=== PATIENT | female | born 1945 | race Caucasian/White ===

== ENCOUNTER 2022-02-16 07:45 | Day surgery (SDC) | payer MEDICARE ==
--- NOTE | 2022-02-10 09:36 | HP ---
DATE OF SURGERY: 02/16/2022 HISTORY OF PRESENT ILLNESS: The patient is a 76-year-old female who presents with cholelithiasis. She had some band-like abdominal pain. She also had some nausea and vomiting with this. The pain radiates out to the lateral side. The patient had ultrasound demonstrating cholelithiasis. PAST MEDICAL HISTORY: Thyroid, hypertension, anxiety, depression, gastroesophageal reflux disease, chronic obstructive pulmonary disease. PAST SURGICAL HISTORY: None. ALLERGIES: NKDA. MEDICATIONS: Simvastatin, omeprazole, nifedipine, losartan, levothyroxine, Fosamax, fluoxetine, cilostazol, Chlorthalidone, aspirin, albuterol, vitamin D, vitamin B. FAMILY HISTORY: None reported. SOCIAL HISTORY: Smokes one pack a day, denies alcohol. REVIEW OF SYSTEMS: CONSTITUTIONAL: Denies fever or chills. CHEST: Denies shortness of breath. CVS: Denies chest pain. ABDOMEN: Reports abdominal pain, nausea, vomiting. Denies diarrhea, constipation or rectal bleeding. PHYSICAL EXAMINATION: GENERAL: No acute distress. CHEST: Nonlabored. No shortness of breath. CVS: Regular rate and rhythm. ABDOMEN: Soft. IMPRESSION: Symptomatic cholelithiasis. PLAN: Laparoscopic cholecystectomy with Dr. Booker Acharya. As dictated by Ct Martinez NP.
[~2022-02-16 07:45] MED LIST: Lactated Ringers 1,000 ML IV ONE; Sensorcaine 0.25% 10 ML ONE
[2022-02-16] MEDS ORDERED: Lactated Ringers 1,000 ML IV SCH (08:00)
[2022-02-16] MEDS ORDERED: MEFOXIN 2 GM PREMIX** 2 GM/50 ML ML IV SCH (08:00)
[2022-02-16] MEDS ORDERED: OFIRMEV 100 ML IV ONE (09:47)
[2022-02-16] MEDS ORDERED: Pre-Attached Lta Kit TP ONE (09:47)
[2022-02-16] MEDS ORDERED: Decadron 4 MG INJ ONE (09:57)
[2022-02-16] MEDS ORDERED: Zemuron 100 MG/10 ML ONE (09:57)
[2022-02-16] MEDS ORDERED: Zofran 4 MG/2 ML VIAL ONE (09:57)
[2022-02-16] MEDS ORDERED: Xylocaine-Mpf 2% 5 Ml Vial ONE (09:57)
[2022-02-16] MEDS ORDERED: Quelicin Fliptop 200 MG/10 ML ONE (09:57)
[2022-02-16] MEDS ORDERED: DIPRIVAN 200 MG/20 ML IV ONE (09:57)
[2022-02-16] MEDS ORDERED: SUBLIMAZE 100 MCG/2 ML ONE (09:58)
[2022-02-16] MEDS ORDERED: ATROPINE SULFATE 1MG ONE (10:09)
[2022-02-16] MEDS ORDERED: Ephedrine Sulfate 50 MG/ML ONE (10:12)
[2022-02-16] MEDS ORDERED: BRIDION 200MG/2ML IV ONE (10:34)
[2022-02-16] MEDS ORDERED: NORCO 5/325 MG PO PRN (11:55)
--- NOTE | 2022-02-16 11:56 | OP ---
SURGERY DATE/TIME: 02/16/2022 0955 PREOPERATIVE DIAGNOSIS: Symptomatic cholelithiasis. POSTOPERATIVE DIAGNOSIS: Symptomatic cholelithiasis. PROCEDURE: Laparoscopic cholecystectomy. SURGEON: Dr. Booker Acharya. ANESTHESIA: General endotracheal tube. COMPLICATIONS: None. CONDITION: Stable. INDICATIONS: Symptomatic gallbladder disease. DESCRIPTION OF PROCEDURE AND FINDINGS: Taken to surgery. General anesthetic, routine prep and drape. Veress needle inserted. Opening pressure of 1, insufflating pressure 14. Four - 5's. Good visualization. A fairly large gallbladder, some thickening. There were two or three lymph nodes in the mukesh area at the gallbladder. Cystic duct defined. Cystic artery defined. Both structures triply clipped and transected. Clips noted across and well approximated. Gallbladder rolled out of gallbladder fossa. The gallbladder delivered through the epigastric port. Three stones removed. The field was totally clean and dry. The gallbladder removed. No irrigation was required. Hole closure device was used on the epigastric 5 that had been enlarged to 8 or 9 port. CO2 exsufflated. Skin closed with 4-0 Vicryl and Steri-Strips. The patient tolerated the procedure satisfactorily. Findings discussed with the family in the waiting room.
[2022-02-16 12:25] VITALS: O2SAT 94
[2022-02-16 12:34] VITALS: BP 145/58; PULSE 72
== END 2022-02-16 12:45 | disposition home or self-care (01) ==
LOC: SDC 07:45
PROVIDERS: ATTEND Surgery
DX: K80.50 Calculus of bile duct without cholangitis or cholecystitis without obstruction (principal)
CPT/HCPCS: 93005; 99100; J0330; J0461; J0694; J1100; J2405; J2704; J3010; A9270-GY

== ENCOUNTER 2022-09-19 17:26 | Observation (INO) | payer MEDICARE ==
[2022-09-19] MEDS ORDERED: Sodium Chloride 0.9% 1000 ML 1,000 ML ONE (17:52)
[2022-09-19] MEDS ORDERED: Sodium Chloride 0.9% 1000 ML 1,000 ML IV SCH (18:00)
[2022-09-19 18:09] LABS: Hematocrit 29.1 % (35-47); Hemoglobin 8.5 g/dL (12.0-16.0); Mean Cell Volume 67.4 fL (78-100); Mean Corpuscular Hemoglobin 19.7 pg (26-32); Mean Corpuscular Hgb Concent. 29.2 g/dL (32-36); Mean Platelet Volume 11.2 fL (7.5-11.0); Platelet Count 421 x10^3/uL (150-450); Red Blood Count 4.32 x10^6/uL (4.1-5.4); Red Cell Distribution Width 21.1 % (11.5-14.0); White Blood Count 9.2 x10^3/uL (4.0-10.5)
[2022-09-19 18:27] LABS: ANION GAP 9.7 MEQ/L (5-15); BILIRUBIN,TOTAL 0.8 mg/dL (0.2-1.3); Calcium 8.2 mg/dL (8.4-10.2); Creatinine 1 1.35 mg/dL (0.52-1.04); EST GLOMERULAR FILTRATION RATE 40.4 ML/MIN; INR 1.2 (0.8-3.0); PROTIME 12.5 SECONDS (9.4-12.5); Potassium 3.4 mmol/L (3.5-5.1); Total Protein 6.2 g/dL (6.3-8.2)
--- NOTE | 2022-09-19 18:34 | ERPHSYRPT ---
- History of Present Illness Source: patient Exam Limitations: no limitations Patient Subjective Stated Complaint: pt co increase sob and leg weakness for last couple days, was seen at clinic today and was negative for covid,and flu, productive white cough Triage Nursing Assessment: pt arrvied per wc, able to get undress. resp easy, wheezes heard, skin w/d/p. no cough at this time, no edema noted Timing/Duration: day(s) (2) Activities at Onset: none Severity of Dyspnea-Max: severe Severity of Dyspnea-Current: severe Possible Cause: occasional episodes Modifying Factors: Improves With: coughing, lying down, rest Associated Symptoms: cough, fever, wheezing, chills, productive cough Hx Influenza Vaccination/Date Given: Yes Hx Pneumococcal Vaccination/Date Given: Yes Immunizations Up to Date: Yes <RICO MA - Last Filed: 09/19/22 18:28> <ANGELES MIKE - Last Filed: 09/19/22 21:34> - History of Present Illness Time Seen by Provider: 09/19/22 18:00 Physician History: Patient is a 77-year-old white female who presents with shortness of breath for 2 days she has had some cough which produces some clear sputum. She also has chills and sweats she has a history of COPD. Her dyspnea on exertion is severe. She denies any chest pain. She also complains of weakness in her legs. [facility] and had a negative COVID apparently (RICO MA) Allergies/Adverse Reactions: No Known Drug Allergies Allergy (Verified 09/19/22 17:30) Home Medications: Albuterol Sulfate [Proair Respiclick] 90 mcg IH UD 02/09/22 [History] Alendronate Sodium 70 mg [Fosamax 70 MG] 70 mg PO Q7D@0600 02/09/22 [History] Chlorthalidone 25 mg PO HS 02/09/22 [History] Cyanocobalamin (Vitamin B-12) [Vitamin B-12] 1,000 mcg PO DAILY 02/09/22 [History] Ergocalciferol (Vitamin D2) [Vitamin D2] 50,000 unit PO Q7D 02/09/22 [History] Fluoxetine HCl [Prozac] 40 mg PO HS 02/09/22 [History] Levothyroxine Sodium [Levothyroxine] 88 mcg PO HS 02/09/22 [History] Losartan Potassium [Cozaar] 100 mg PO HS 02/09/22 [History] Nifedipine [Procardia Xl] 30 mg PO HS 02/09/22 [History] Omeprazole 20 mg PO HS 02/09/22 [History] Simvastatin 40 mg PO HS 02/09/22 [History] Tiotropium Jackson Inhaler [Spiriva 18 Mcg/Cap Inhaler] 1 puff IH DAILY 02/09/22 [History] Travel Risk - International Travel Have you traveled outside of the country in past 3 weeks: No - Coronavirus Screening Are you exhibiting any of the following symptoms?: Yes Symptoms: Cough: New Onset, Shortness of Breath Close contact with a COVID-19 positive Pt in past 14-21 Days: No - Vaccine Status Have you recieved a Covid-19 vaccination: Yes Corporate Development Analyst: Unknown - Vaccination Dates Date of 2cond Vaccination (if applicable): 2020 Dates if Unknown: ? <RICO MA - Last Filed: 09/19/22 18:28> - Review of Systems Constitutional: Fever, Chills Eyes: No Symptoms Ears, Nose, & Throat: No Symptoms Respiratory: Cough, Dyspnea Cardiac: No Chest Pain, No Edema, No Syncope Abdominal/Gastrointestinal: No Abdominal Pain, No Nausea, No Vomiting, No Diarrhea Genitourinary Symptoms: No Dysuria Musculoskeletal: Myalgias, No Back Pain, No Neck Pain Skin: No Rash Neurological: No Dizziness, No Focal Weakness, No Sensory Changes Psychological: No Symptoms Endocrine: No Symptoms All Other Systems: Reviewed and Negative <RICO MA - Last Filed: 09/19/22 18:28> - Past Medical History Pertinent Past Medical History: Yes Neurological History: No Pertinent History ENT History: No Pertinent History Cardiac History: High Cholesterol, Hypertension Respiratory History: COPD Endocrine Medical History: Hypothyroidism Musculoskeletal History: Arthritis, Osteoporosis GI Medical History: Gallbladder Disease History: No Pertinent History Psycho-Social History: No Pertinent History Female Reproductive Disorders: No Pertinent History - Past Surgical History Past Surgical History: No Neuro Surgical History: No Pertinent History Cardiac: No Pertinent History Respiratory: No Pertinent History Gastrointestinal: No Pertinent History Genitourinary: No Pertinent History Musculoskeletal: No Pertinent History Female Surgical History: No Pertinent History - Social History Smoking Status: Current every day smoker How long have you smoked: 50 + years Exposure to second hand smoke: Yes Drug Use: none Patient Lives Alone: No <RICO MA - Last Filed: 09/19/22 18:28> - Physical Exam General Appearance: alert Eye Exam: PERRL/EOMI Neck Exam: normal inspection, supple Respiratory Exam: diminished breath sounds, crackles/rales, wheezing Cardiovascular/Chest Exam: normal heart sounds, regular rate/rhythm Abdominal/Gastrointestinal Exam: soft, No tenderness, No distention, No mass Extremity Exam: non-tender, normal range of motion, normal inspection, no calf tenderness, no pedal edema Neurologic Exam: alert, oriented x 3, cooperative, meter tester primary II-XII nml as tested, sensation nml, No motor deficits Skin Exam: normal color, warm, No dry SpO2 Interpretation: normal SpO2: 93 O2 Delivery: Room Air <SETHKEIKORICO - Last Filed: 09/19/22 18:28> - Nursing Vital Signs Nursing Vital Signs: Initial Vital Signs Temperature 98.8 F 09/19/22 17:27 Pulse Rate 84 09/19/22 17:27 Respiratory Rate 22 09/19/22 17:27 Blood Pressure 139/57 09/19/22 17:27 O2 Sat by Pulse Oximetry 93 L 09/19/22 17:27 Pain Scale Pain Intensity 6 - Course Nursing assessment & vital signs reviewed: Yes <ANGELES MIKE - Last Filed: 09/19/22 21:34> Ordered Tests: Active Orders 24 hr Category Date Time Status EKG-ER Only STAT Care 09/19/22 17:48 Active IV Insertion STAT Care 09/19/22 17:48 Active CHEST 1 VIEW (PORTABLE) Stat Exams 09/19/22 17:48 Taken BLOOD CULTURE Stat Lab 09/19/22 18:00 Received CBC W DIFF Stat Lab 09/19/22 17:40 Completed CMP Stat Lab 09/19/22 17:40 Completed D-DIMER QUANTITATIVE Stat Lab 09/19/22 17:40 Completed Lactic Acid Stat Lab 09/19/22 18:21 Completed Manual Differential NC Stat Lab 09/19/22 17:40 Completed NT PRO BNP Stat Lab 09/19/22 17:40 Completed Occult Blood Stool [FECAL OCCULT BLOOD - SCREENING] Lab 09/19/22 20:53 Ordered Stat PROCALCITONIN Stat Lab 09/19/22 17:40 Completed PROTIME WITH INR Stat Lab 09/19/22 17:40 Completed TROPONIN Q4H Lab 09/19/22 17:40 Completed TROPONIN Q4H Lab 09/20/22 00:15 Ordered TROPONIN Q4H Lab 09/20/22 04:15 Ordered UA W/RFX CULTURE Stat Lab 09/19/22 Ordered Medication Summary Generic Name Dose Route Start Last Admin Trade Name Freq PRN Reason Stop Dose Admin Sodium Chloride 1,000 mls @ 50 mls/hr 09/19/22 18:00 09/19/22 17:53 Sodium Chloride 0.9% 1000 Ml IV 10/19/22 17:59 50 mls/hr .Q20H BLUE Administration Discontinued Medications Generic Name Dose Route Start Last Admin Trade Name Freq PRN Reason Stop Dose Admin Furosemide 40 mg 09/19/22 20:52 Furosemide 40 Mg/4 Ml Vial IV 09/19/22 20:53 STAT ONE Lab/Rad Data: Laboratory Result Diagrams 09/19/22 17:40 09/19/22 17:40 Laboratory Results 09/19/22 09/19/22 09/19/22 Range/Units 18:21 18:05 17:40 WBC (4.0-10.5) x10^3/uL RBC (4.1-5.4) x10^6/uL Hgb (12.0-16.0) g/dL Hct (35-47) % MCV (78-100) fL MCH (26-32) pg MCHC (32-36) g/dL RDW (11.5-14.0) % Plt Count (150-450) x10^3/uL MPV (7.5-11.0) fL PT (9.4-12.5) SECONDS INR (0.8-3.0) D-Dimer (0.0-0.50) mg/L Sodium (137-145) mmol/L Potassium (3.5-5.1) mmol/L Chloride (98-107) mmol/L Carbon Dioxide (22-30) mmol/L Anion Gap (5-15) MEQ/L BUN (7-17) mg/dL Creatinine (0.52-1.04) mg/dL Estimated GFR ML/MIN Glucose (74-106) mg/dL Lactic Acid 1.2 (0.4-2.0) Calcium (8.4-10.2) mg/dL Total Bilirubin (0.2-1.3) mg/dL AST (14-36) U/L ALT (0-35) U/L Alkaline Phosphatase (38-126) U/L Troponin I 0.030 (0.000-0.034) ng/mL NT-Pro-B Natriuret Pep (0-1800) pg/mL Serum Total Protein (6.3-8.2) g/dL Albumin (3.5-5.0) g/dL Procalcitonin (0.030-0.080) ng/mL Influenza Type A Ag NEGATIVE (NEGATIVE) Influenza Type B Ag NEGATIVE (NEGATIVE) RSV (PCR) NEGATIVE (Negative) SARS-CoV-2 (PCR) NEGATIVE (NEGATIVE) 09/19/22 09/19/22 09/19/22 Range/Units 17:40 17:40 17:40 WBC (4.0-10.5) x10^3/uL RBC (4.1-5.4) x10^6/uL Hgb (12.0-16.0) g/dL Hct (35-47) % MCV (78-100) fL MCH (26-32) pg MCHC (32-36) g/dL RDW (11.5-14.0) % Plt Count (150-450) x10^3/uL MPV (7.5-11.0) fL PT (9.4-12.5) SECONDS INR (0.8-3.0) D-Dimer 9.62 H* (0.0-0.50) mg/L Sodium (137-145) mmol/L Potassium (3.5-5.1) mmol/L Chloride (98-107) mmol/L Carbon Dioxide (22-30) mmol/L Anion Gap (5-15) MEQ/L BUN (7-17) mg/dL Creatinine (0.52-1.04) mg/dL Estimated GFR ML/MIN Glucose (74-106) mg/dL Lactic Acid (0.4-2.0) Calcium (8.4-10.2) mg/dL Total Bilirubin (0.2-1.3) mg/dL AST (14-36) U/L ALT (0-35) U/L Alkaline Phosphatase (38-126) U/L Troponin I (0.000-0.034) ng/mL NT-Pro-B Natriuret Pep 2430 H (0-1800) pg/mL Serum Total Protein (6.3-8.2) g/dL Albumin (3.5-5.0) g/dL Procalcitonin 0.308 H (0.030-0.080) ng/mL Influenza Type A Ag (NEGATIVE) Influenza Type B Ag (NEGATIVE) RSV (PCR) (Negative) SARS-CoV-2 (PCR) (NEGATIVE) 09/19/22 09/19/22 09/19/22 Range/Units 17:40 17:40 17:40 WBC 9.2 (4.0-10.5) x10^3/uL RBC 4.32 (4.1-5.4) x10^6/uL Hgb 8.5 L (12.0-16.0) g/dL Hct 29.1 L (35-47) % MCV 67.4 L (78-100) fL MCH 19.7 L (26-32) pg MCHC 29.2 L (32-36) g/dL RDW 21.1 H (11.5-14.0) % Plt Count 421 (150-450) x10^3/uL MPV 11.2 H (7.5-11.0) fL PT 12.5 (9.4-12.5) SECONDS INR 1.20 (0.8-3.0) D-Dimer (0.0-0.50) mg/L Sodium 129 L (137-145) mmol/L Potassium 3.4 L (3.5-5.1) mmol/L Chloride 96 L (98-107) mmol/L Carbon Dioxide 26 (22-30) mmol/L Anion Gap 9.7 (5-15) MEQ/L BUN 27 H (7-17) mg/dL Creatinine 1.35 H (0.52-1.04) mg/dL Estimated GFR 40.4 ML/MIN Glucose 113 H (74-106) mg/dL Lactic Acid (0.4-2.0) Calcium 8.2 L (8.4-10.2) mg/dL Total Bilirubin 0.80 (0.2-1.3) mg/dL AST 35 (14-36) U/L ALT 16 (0-35) U/L Alkaline Phosphatase 94 (38-126) U/L Troponin I (0.000-0.034) ng/mL NT-Pro-B Natriuret Pep (0-1800) pg/mL Serum Total Protein 6.2 L (6.3-8.2) g/dL Albumin 3.0 L (3.5-5.0) g/dL Procalcitonin (0.030-0.080) ng/mL Influenza Type A Ag (NEGATIVE) Influenza Type B Ag (NEGATIVE) RSV (PCR) (Negative) SARS-CoV-2 (PCR) (NEGATIVE) - Progress Progress: unchanged Air Movement: good Blood Culture(s) Obtained: Yes Antibiotics given: No <RICO MA - Last Filed: 09/19/22 18:28> - Progress Discussed with : Luisana Counseled pt/family regarding: lab results, diagnosis, rad results <ANGELES MIKE - Last Filed: 09/19/22 21:34> - Progress Progress Note: 09/19/22 21:24 Medical decision making: This patient has dyspnea on exertion as well as elevated D-dimer. Her low GFR is preventing us from performing a CTA of the chest to evaluate for pulmonary embolus. Therefore, we will provide her with Lovenox subcutaneously and repeat labs in the morning. We will gently rehydrate her as her BNP is elevated. She also has a hemoglobin level of 8.5 which we ne ed to watch closely to make sure that this level is not dropping while on Lovenox. She also has hyponatremia and acute renal insufficiency and an elevated BNP. (ANGELES MIKE) - Departure Departure Disposition: Observation Critical Care Time: No <RICO MA - Last Filed: 09/19/22 18:28> - Departure Departure Disposition: Observation <ANGELES MIKE - Last Filed: 09/19/22 21:34> - Departure Clinical Impression: Dyspnea, Elevated d-dimer, Hyponatremia, Acute renal insufficiency, Elevated brain natriuretic peptide (BNP) level, Anemia Condition: Fair Referrals: ZAN RENEE MD [Primary Care Provider] - Follow up/PCP as directed
[2022-09-19 18:55] LABS: INFLUENZA A NEGATIVE (NEGATIVE); INFLUENZA B NEGATIVE (NEGATIVE); RESPIRATORY SYNCTIAL VIRUS NEGATIVE (Negative); SARS-CoV-2 Xpert Express NEGATIVE (NEGATIVE)
[2022-09-19] MEDS ORDERED: Lasix 40 MG/4 ML IV ONE (20:52)
[2022-09-19] MEDS ORDERED: ENOXAPARIN SODIUM SQ ONE ×2 (21:35→21:47)
[2022-09-19] MEDS ORDERED: Lasix 40 MG/4 ML ONE (21:47)
[2022-09-19 21:55] LABS: BAND 6 % (0.0-2.0); Hypochromia 2+; Lymphocytes 7 % (24-44); Macrocytosis 1+; Microcytosis 2+; Monocyte 5 % (0.0-12.0); Myelocyte 1 %; Platelet Estimate NORMAL (NORMAL); Total Cells Counted 100
[2022-09-20] MEDS ORDERED: TYLENOL 325 MG PO STA (00:12)
[2022-09-20] MEDS ORDERED: TYLENOL 325 MG ONE (00:17)
[2022-09-20 00:42] LABS: Hyaline Casts 0-2 /LPF (0-2); Mucus SLIGHT /HPF (NEGATIVE); RBC 0-2 /HPF (0-2)
[2022-09-20 00:43] LABS: Appearance CLEAR (CLEAR); Bilirubin NEGATIVE (NEGATIVE); Dipstick done @ ? MAIN LAB; Glucose NEGATIVE (NEGATIVE); Ketones NEGATIVE (NEGATIVE); Nitrite NEGATIVE (NEGATIVE); Protein,Urine Dip 100 (Negative); RBC NEGATIVE Ery/ul (0-5); Specific Gravity 1.015 (1.005-1.025); Urobilinogen 0.2 mg/dL (0-1)
[2022-09-20 00:44] LABS: Bacteria NONE SEEN /HPF (NEGATIVE); Urine Cultured Indicated? NO
[2022-09-20] MEDS ORDERED: Merrem 1 GM in Sodium Chloride 100ML MINI-BAG PLUS 100 ML IV ONE (01:13)
[2022-09-20] MEDS ORDERED: Merrem IV ONE (01:21)
[2022-09-20] MEDS ORDERED: Sodium Chloride 100ML MINI-BAG PLUS 100 ML IV ONE (01:21)
[2022-09-20] MEDS ORDERED: TYLENOL 325 MG PO PRN (01:52)
[2022-09-20] MEDS ORDERED: Sodium Chloride 0.9% 1000 ML 1,000 ML IV SCH (01:52)
[2022-09-20 05:06] LABS: Hematocrit 28.2 % (35-47); Hemoglobin 8.3 g/dL (12.0-16.0); Mean Cell Volume 67.5 fL (78-100); Mean Corpuscular Hemoglobin 19.9 pg (26-32); Mean Corpuscular Hgb Concent. 29.4 g/dL (32-36); Mean Platelet Volume 10.8 fL (7.5-11.0); Platelet Count 355 x10^3/uL (150-450); Red Blood Count 4.18 x10^6/uL (4.1-5.4); Red Cell Distribution Width 21.3 % (11.5-14.0); White Blood Count 10.2 x10^3/uL (4.0-10.5)
[2022-09-20 05:37] LABS: ALBUMIN 2.9 g/dL (3.5-5.0); ANION GAP 9.3 MEQ/L (5-15); BILIRUBIN,TOTAL 0.6 mg/dL (0.2-1.3); Calcium 7.9 mg/dL (8.4-10.2); Creatinine 1 1.53 mg/dL (0.52-1.04); Total Protein 5.8 g/dL (6.3-8.2)
[2022-09-20 05:43] LABS: Potassium 2.9 mmol/L (3.5-5.1)
[2022-09-20] MEDS ORDERED: VENTOLIN COMMON CANISTER IH PRN (05:58)
[2022-09-20] MEDS ORDERED: MAGNESIUM SULF 2 G/50 ML BAG 2 GM/50 ML PIGGYBACK IV ONE (07:00)
--- NOTE | 2022-09-20 08:00 | PCM.HP ---
History of Present Illness - Chief Complaint Chief Complaint: Hyponatremia, Elevated D-Dimer, Elevated Troponin History of Present Illness: is a 77 year old female who arrived complaining of a cough and shortness of breath, she is wheezing. no chest pain, no known fever. - Review of Systems Constitutional: No Fever, No Chills Respiratory: Cough, Short Of Breath Cardiac: No Chest Pain, No Edema, No Syncope Abdominal/Gastrointestinal: No Abdominal Pain, No Nausea, No Vomiting, No Diarrhea Skin: No Rash All Other Systems: Reviewed and Negative Medications & Allergies Home Medications: Home Medication List Albuterol Sulfate [Proair Respiclick] 90 mcg IH UD 02/09/22 [History Confirmed 02/16/22] Alendronate Sodium 70 mg [Fosamax 70 MG] 70 mg PO Q7D@0600 02/09/22 [History Confirmed 02/16/22] Chlorthalidone 25 mg PO HS 02/09/22 [History Confirmed 02/16/22] Cyanocobalamin (Vitamin B-12) [Vitamin B-12] 1,000 mcg PO DAILY 02/09/22 [History Confirmed 02/16/22] Ergocalciferol (Vitamin D2) [Vitamin D2] 50,000 unit PO Q7D 02/09/22 [History Confirmed 02/16/22] Fluoxetine HCl [Prozac] 40 mg PO HS 02/09/22 [History Confirmed 02/16/22] Levothyroxine Sodium [Levothyroxine] 88 mcg PO HS 02/09/22 [History Confirmed 02/16/22] Losartan Potassium [Cozaar] 100 mg PO HS 02/09/22 [History Confirmed 02/16/22] Nifedipine [Procardia Xl] 30 mg PO HS 02/09/22 [History Confirmed 02/16/22] Omeprazole 20 mg PO HS 02/09/22 [History Confirmed 02/16/22] Simvastatin 40 mg PO HS 02/09/22 [History Confirmed 02/16/22] Tiotropium [place] Inhaler [Spiriva 18 Mcg/Cap Inhaler] 1 puff IH DAILY 02/09/22 [History Confirmed 02/16/22] Aspirin EC 81 mg [Ecotrin 81 mg] 81 mg PO DAILY #0 02/16/22 [Rx Confirmed 02/16/22] Hydrocodone/Acetaminophen [Hydrocodone-Acetamin 5-325 mg] 1 tab PO Q4HPRN PRN #20 tablet MDD 5 02/16/22 [Rx] Allergies/Adverse Reactions: Allergies Allergy/AdvReac Type Severity Reaction Status Date / Time No Known Drug Allergies Allergy Verified 09/19/22 17:30 - Past Medical History Past Medical History: Yes Neurological History: No Pertinent History ENT History: No Pertinent History Cardiac History: High Cholesterol, Hypertension Respiratory History: COPD Endocrine Medical History: Hypothyroidism Musculoskelatal History: Arthritis, Osteoporosis GI Medical History: Gallbladder Disease History: No Pertinent History Pyscho-Social History: No Pertinent History Reproductive Disorders: No Pertinent History - Past Surgical History Past Surgical History: No Neuro Surgical History: No Pertinent History Cardiac History: No Pertinent History Respiratory Surgery: No Pertinent History GI Surgical History: No Pertinent History Genitourinary Surgical Hx: No Pertinent History Musculskeletal Surgical Hx: No Pertinent History Female Surgical History: No Pertinent History - Social History Smoking Status: Current every day smoker How long have you smoked: 50 + years Exposure to second hand smoke: Yes Alcohol: None Drug Use: none - Physical Exam Vital Signs: Vital Signs - 24 hr Temp Pulse Resp BP Pulse Ox 09/20/22 05:35 72 17 96 09/20/22 02:00 96.8 F 86 20 109/54 96 09/20/22 00:13 86 16 117/84 92 L 09/19/22 23:17 102 H 22 163/59 94 L 09/19/22 22:07 77 18 124/82 94 L 09/19/22 21:10 72 18 129/54 95 09/19/22 20:04 74 18 137/50 94 L 09/19/22 19:49 94 H 18 127/48 94 L 09/19/22 18:45 75 18 131/54 94 L 09/19/22 18:36 93 L 09/19/22 18:31 76 26 H 132/52 94 L 09/19/22 17:31 22 93 L 09/19/22 17:27 98.8 F 84 22 139/57 93 L General Appearance: no apparent distress Neurologic Exam: alert, oriented x 3 Respiratory Exam: prolonged expirations, wheezing Cardiovascular Exam: regular rate/rhythm, normal heart sounds, normal peripheral pulses Gastrointestinal/Abdomen Exam: soft, normal bowel sounds, No tenderness, No mass Extremity Exam: normal inspection, normal range of motion, pelvis stable Skin Exam: normal color, warm, dry, No rash Results - Labs Lab/Micro Results: Lab Results-Last 24 Hours 09/19/22 09/19/22 09/19/22 Range/Units 17:40 17:40 17:40 WBC 9.2 (4.0-10.5) x10^3/uL RBC 4.32 (4.1-5.4) x10^6/uL Hgb 8.5 L (12.0-16.0) g/dL Hct 29.1 L (35-47) % MCV 67.4 L (78-100) fL MCH 19.7 L (26-32) pg MCHC 29.2 L (32-36) g/dL RDW 21.1 H (11.5-14.0) % Plt Count 421 (150-450) x10^3/uL MPV 11.2 H (7.5-11.0) fL Segmented Neutrophils 81 H (36.0-66.0) % Band Neutrophils 6 H (0.0-2.0) % Lymphocytes (Manual) 7 L (24-44) % Monocytes (Manual) 5 (0.0-12.0) % Myelocytes 1 % Hypochromia 2+ Platelet Estimate NORMAL (NORMAL) RBC Morphology ABNORMAL Microcytosis 2+ Macrocytosis 1+ PT 12.5 (9.4-12.5) SECONDS INR 1.20 (0.8-3.0) D-Dimer (0.0-0.50) mg/L Sodium 129 L (137-145) mmol/L Potassium 3.4 L (3.5-5.1) mmol/L Chloride 96 L (98-107) mmol/L Carbon Dioxide 26 (22-30) mmol/L Anion Gap 9.7 (5-15) MEQ/L BUN 27 H (7-17) mg/dL Creatinine 1.35 H (0.52-1.04) mg/dL Estimated GFR 40.4 ML/MIN Glucose 113 H (74-106) mg/dL Lactic Acid (0.4-2.0) Calcium 8.2 L (8.4-10.2) mg/dL Magnesium (1.6-2.3) mg/dL Total Bilirubin 0.80 (0.2-1.3) mg/dL AST 35 (14-36) U/L ALT 16 (0-35) U/L Alkaline Phosphatase 94 (38-126) U/L Troponin I (0.000-0.034) ng/mL NT-Pro-B Natriuret Pep (0-1800) pg/mL Serum Total Protein 6.2 L (6.3-8.2) g/dL Albumin 3.0 L (3.5-5.0) g/dL Procalcitonin (0.030-0.080) ng/mL Urinalys Dipstick Clnc Urine Color (YELLOW) Urine Appearance (CLEAR) Urine pH (5-6) Ur Specific [place] (1.005-1.025) POC Urine Protein Conf (Negative) Urine Ketones (NEGATIVE) Urine Nitrite (NEGATIVE) Urine Bilirubin (NEGATIVE) Urine Urobilinogen (0-1) mg/dL Urine Leukocytes (NEGATIVE) Urine WBC (Auto) (0-5) /HPF Urine RBC (Auto) (0-2) /HPF U Hyaline Cast (Auto) (0-2) /LPF U Epithel Cells (Auto) (FEW) /HPF Urine Bacteria (Auto) (NEGATIVE) /HPF Urine RBC (0-5) [place]/ul Urine Mucus (Auto) (NEGATIVE) /HPF Ur Culture Indicated? Urine Glucose (NEGATIVE) mg/dL Influenza Type A Ag (NEGATIVE) Influenza Type B Ag (NEGATIVE) RSV (PCR) (Negative) SARS-CoV-2 (PCR) (NEGATIVE) 09/19/22 09/19/22 09/19/22 Range/Units 17:40 17:40 17:40 WBC (4.0-10.5) x10^3/uL RBC (4.1-5.4) x10^6/uL Hgb (12.0-16.0) g/dL Hct (35-47) % MCV (78-100) fL MCH (26-32) pg MCHC (32-36) g/dL RDW (11.5-14.0) % Plt Count (150-450) x10^3/uL MPV (7.5-11.0) fL Segmented Neutrophils (36.0-66.0) % Band Neutrophils (0.0-2.0) % Lymphocytes (Manual) (24-44) % Monocytes (Manual) (0.0-12.0) % Myelocytes % Hypochromia Platelet Estimate (NORMAL) RBC Morphology Microcytosis Macrocytosis PT (9.4-12.5) SECONDS INR (0.8-3.0) D-Dimer 9.62 H* (0.0-0.50) mg/L Sodium (137-145) mmol/L Potassium (3.5-5.1) mmol/L Chloride (98-107) mmol/L Carbon Dioxide (22-30) mmol/L Anion Gap (5-15) MEQ/L BUN (7-17) mg/dL Creatinine (0.52-1.04) mg/dL Estimated GFR ML/MIN Glucose (74-106) mg/dL Lactic Acid (0.4-2.0) Calcium (8.4-10.2) mg/dL Magnesium (1.6-2.3) mg/dL Total Bilirubin (0.2-1.3) mg/dL AST (14-36) U/L ALT (0-35) U/L Alkaline Phosphatase (38-126) U/L Troponin I (0.000-0.034) ng/mL NT-Pro-B Natriuret Pep 2430 H (0-1800) pg/mL Serum Total Protein (6.3-8.2) g/dL Albumin (3.5-5.0) g/dL Procalcitonin 0.308 H (0.030-0.080) ng/mL Urinalys Dipstick Clnc Urine Color (YELLOW) Urine Appearance (CLEAR) Urine pH (5-6) Ur Specific [place] (1.005-1.025) POC Urine Protein Conf (Negative) Urine Ketones (NEGATIVE) Urine Nitrite (NEGATIVE) Urine Bilirubin (NEGATIVE) Urine Urobilinogen (0-1) mg/dL Urine Leukocytes (NEGATIVE) Urine WBC (Auto) (0-5) /HPF Urine RBC (Auto) (0-2) /HPF U Hyaline Cast (Auto) (0-2) /LPF U Epithel Cells (Auto) (FEW) /HPF Urine Bacteria (Auto) (NEGATIVE) /HPF Urine RBC (0-5) [place]/ul Urine Mucus (Auto) (NEGATIVE) /HPF Ur Culture Indicated? Urine Glucose (NEGATIVE) mg/dL Influenza Type A Ag (NEGATIVE) Influenza Type B Ag (NEGATIVE) RSV (PCR) (Negative) SARS-CoV-2 (PCR) (NEGATIVE) 09/19/22 09/19/22 09/19/22 Range/Units 17:40 18:05 18:21 WBC (4.0-10.5) x10^3/uL RBC (4.1-5.4) x10^6/uL Hgb (12.0-16.0) g/dL Hct (35-47) % MCV (78-100) fL MCH (26-32) pg MCHC (32-36) g/dL RDW (11.5-14.0) % Plt Count (150-450) x10^3/uL MPV (7.5-11.0) fL Segmented Neutrophils (36.0-66.0) % Band Neutrophils (0.0-2.0) % Lymphocytes (Manual) (24-44) % Monocytes (Manual) (0.0-12.0) % Myelocytes % Hypochromia Platelet Estimate (NORMAL) RBC Morphology Microcytosis Macrocytosis PT (9.4-12.5) SECONDS INR (0.8-3.0) D-Dimer (0.0-0.50) mg/L Sodium (137-145) mmol/L Potassium (3.5-5.1) mmol/L Chloride (98-107) mmol/L Carbon Dioxide (22-30) mmol/L Anion Gap (5-15) MEQ/L BUN (7-17) mg/dL Creatinine (0.52-1.04) mg/dL Estimated GFR ML/MIN Glucose (74-106) mg/dL Lactic Acid 1.2 (0.4-2.0) Calcium (8.4-10.2) mg/dL Magnesium (1.6-2.3) mg/dL Total Bilirubin (0.2-1.3) mg/dL AST (14-36) U/L ALT (0-35) U/L Alkaline Phosphatase (38-126) U/L Troponin I 0.030 (0.000-0.034) ng/mL NT-Pro-B Natriuret Pep (0-1800) pg/mL Serum Total Protein (6.3-8.2) g/dL Albumin (3.5-5.0) g/dL Procalcitonin (0.030-0.080) ng/mL Urinalys Dipstick Clnc Urine Color (YELLOW) Urine Appearance (CLEAR) Urine pH (5-6) Ur Specific [place] (1.005-1.025) POC Urine Protein Conf (Negative) Urine Ketones (NEGATIVE) Urine Nitrite (NEGATIVE) Urine Bilirubin (NEGATIVE) Urine Urobilinogen (0-1) mg/dL Urine Leukocytes (NEGATIVE) Urine WBC (Auto) (0-5) /HPF Urine RBC (Auto) (0-2) /HPF U Hyaline Cast (Auto) (0-2) /LPF U Epithel Cells (Auto) (FEW) /HPF Urine Bacteria (Auto) (NEGATIVE) /HPF Urine RBC (0-5) [place]/ul Urine Mucus (Auto) (NEGATIVE) /HPF Ur Culture Indicated? Urine Glucose (NEGATIVE) mg/dL Influenza Type A Ag NEGATIVE (NEGATIVE) Influenza Type B Ag NEGATIVE (NEGATIVE) RSV (PCR) NEGATIVE (Negative) SARS-CoV-2 (PCR) NEGATIVE (NEGATIVE) 09/19/22 09/20/22 09/20/22 Range/Units 23:14 00:29 05:01 WBC (4.0-10.5) x10^3/uL RBC (4.1-5.4) x10^6/uL Hgb (12.0-16.0) g/dL Hct (35-47) % MCV (78-100) fL MCH (26-32) pg MCHC (32-36) g/dL RDW (11.5-14.0) % Plt Count (150-450) x10^3/uL MPV (7.5-11.0) fL Segmented Neutrophils (36.0-66.0) % Band Neutrophils (0.0-2.0) % Lymphocytes (Manual) (24-44) % Monocytes (Manual) (0.0-12.0) % Myelocytes % Hypochromia Platelet Estimate (NORMAL) RBC Morphology Microcytosis Macrocytosis PT (9.4-12.5) SECONDS INR (0.8-3.0) D-Dimer (0.0-0.50) mg/L Sodium (137-145) mmol/L Potassium (3.5-5.1) mmol/L Chloride (98-107) mmol/L Carbon Dioxide (22-30) mmol/L Anion Gap (5-15) MEQ/L BUN (7-17) mg/dL Creatinine (0.52-1.04) mg/dL Estimated GFR ML/MIN Glucose (74-106) mg/dL Lactic Acid (0.4-2.0) Calcium (8.4-10.2) mg/dL Magnesium (1.6-2.3) mg/dL Total Bilirubin (0.2-1.3) mg/dL AST (14-36) U/L ALT (0-35) U/L Alkaline Phosphatase (38-126) U/L Troponin I 0.037 H* 0.064 H* (0.000-0.034) ng/mL NT-Pro-B Natriuret Pep (0-1800) pg/mL Serum Total Protein (6.3-8.2) g/dL Albumin (3.5-5.0) g/dL Procalcitonin (0.030-0.080) ng/mL Urinalys Dipstick Clnc MAIN LAB Urine Color DARK YELLOW (YELLOW) Urine Appearance CLEAR (CLEAR) Urine pH 5.0 (5-6) Ur Specific [place] 1.015 (1.005-1.025) POC Urine Protein Conf 100 A (Negative) Urine Ketones NEGATIVE (NEGATIVE) Urine Nitrite NEGATIVE (NEGATIVE) Urine Bilirubin NEGATIVE (NEGATIVE) Urine Urobilinogen 0.2 (0-1) mg/dL Urine Leukocytes NEGATIVE (NEGATIVE) Urine WBC (Auto) 3-5 A (0-5) /HPF Urine RBC (Auto) 0-2 (0-2) /HPF U Hyaline Cast (Auto) 0-2 (0-2) /LPF U Epithel Cells (Auto) NONE (FEW) /HPF Urine Bacteria (Auto) NONE SEEN (NEGATIVE) /HPF Urine RBC NEGATIVE (0-5) [place]/ul Urine Mucus (Auto) SLIGHT A (NEGATIVE) /HPF Ur Culture Indicated? NO Urine Glucose NEGATIVE (NEGATIVE) mg/dL Influenza Type A Ag (NEGATIVE) Influenza Type B Ag (NEGATIVE) RSV (PCR) (Negative) SARS-CoV-2 (PCR) (NEGATIVE) 09/20/22 09/20/22 09/20/22 Range/Units 05:01 05:01 05:43 WBC 10.2 (4.0-10.5) x10^3/uL RBC 4.18 (4.1-5.4) x10^6/uL Hgb 8.3 L (12.0-16.0) g/dL Hct 28.2 L (35-47) % MCV 67.5 L (78-100) fL MCH 19.9 L (26-32) pg MCHC 29.4 L (32-36) g/dL RDW 21.3 H (11.5-14.0) % Plt Count 355 (150-450) x10^3/uL MPV 10.8 (7.5-11.0) fL Segmented Neutrophils (36.0-66.0) % Band Neutrophils (0.0-2.0) % Lymphocytes (Manual) (24-44) % Monocytes (Manual) (0.0-12.0) % Myelocytes % Hypochromia Platelet Estimate (NORMAL) RBC Morphology Microcytosis Macrocytosis PT (9.4-12.5) SECONDS INR (0.8-3.0) D-Dimer (0.0-0.50) mg/L Sodium 132 L (137-145) mmol/L Potassium 2.9 L* (3.5-5.1) mmol/L Chloride 98 (98-107) mmol/L Carbon Dioxide 28 (22-30) mmol/L Anion Gap 9.3 (5-15) MEQ/L BUN 29 H (7-17) mg/dL Creatinine 1.53 H (0.52-1.04) mg/dL Estimated GFR 35.0 ML/MIN Glucose 129 H (74-106) mg/dL Lactic Acid (0.4-2.0) Calcium 7.9 L (8.4-10.2) mg/dL Magnesium 1.4 L (1.6-2.3) mg/dL Total Bilirubin 0.60 (0.2-1.3) mg/dL AST 46 H (14-36) U/L ALT 19 (0-35) U/L Alkaline Phosphatase 87 (38-126) U/L Troponin I (0.000-0.034) ng/mL NT-Pro-B Natriuret Pep 1850 H (0-1800) pg/mL Serum Total Protein 5.8 L (6.3-8.2) g/dL Albumin 2.9 L (3.5-5.0) g/dL Procalcitonin (0.030-0.080) ng/mL Urinalys Dipstick Clnc Urine Color (YELLOW) Urine Appearance (CLEAR) Urine pH (5-6) Ur Specific [place] (1.005-1.025) POC Urine Protein Conf (Negative) Urine Ketones (NEGATIVE) Urine Nitrite (NEGATIVE) Urine Bilirubin (NEGATIVE) Urine Urobilinogen (0-1) mg/dL Urine Leukocytes (NEGATIVE) Urine WBC (Auto) (0-5) /HPF Urine RBC (Auto) (0-2) /HPF U Hyaline Cast (Auto) (0-2) /LPF U Epithel Cells (Auto) (FEW) /HPF Urine Bacteria (Auto) (NEGATIVE) /HPF Urine RBC (0-5) [place] Urine Mucus (Auto) (NEGATIVE) /HPF Ur Culture Indicated? Urine Glucose (NEGATIVE) mg/dL Influenza Type A Ag (NEGATIVE) Influenza Type B Ag (NEGATIVE) RSV (PCR) (Negative) SARS-CoV-2 (PCR) (NEGATIVE) - Radiology Impressions Radiology Exams & Impressions: Radiology Procedures Category Date Time Status CHEST 1 VIEW (PORTABLE) Stat Exams 09/19/22 17:48 Taken PULMONARY PERF VENTILATION [NUCMED] Stat Exams 09/21/22 01:52 Ordered - Other Procedures and Tests Respiratory Therapy 09/20/22 01:52 Oxygen Nasal Cannula 2 lpm Assessment/Plan (1) Acute exacerbation of chronic obstructive airways disease Current Visit: Yes Status: Acute Assessment & Plan: rocephin/zithromax, nebs and steroids Code(s): J44.1 - CHRONIC OBSTRUCTIVE PULMONARY DISEASE W (ACUTE) EXACERBATION (2) Hypokalemia Current Visit: Yes Status: Acute Assessment & Plan: replacing per protocol Code(s): E87.6 - HYPOKALEMIA (3) Hypomagnesemia Current Visit: Yes Status: Acute Code(s): E83.42 - HYPOMAGNESEMIA
[2022-09-20] MEDS ORDERED: Naprosyn 500 MG PO PRN (08:05)
[2022-09-20] MEDS: K-LYTE PO SCH ×3 (08:22→12:12)
[2022-09-20 08:40] LABS: Lymphocytes 5 % (24-44); Monocyte 5 % (0.0-12.0); Total Cells Counted 100
[2022-09-20 08:44] LABS: Microcytosis 2+; Platelet Estimate NORMAL (NORMAL)
[2022-09-20 08:45] LABS: Hypochromia 1+
--- NOTE | 2022-09-20 08:47 | XRAY ---
Indication: Short of breath. Comparison: None Portable chest inflated and clear. Heart not enlarged for AP portable technique. Bony thorax intact with mild osteopenia and degenerative changes. Impression: Nonacute chest.
[2022-09-20] MEDS: POTASSIUM CHLORIDE 20 mEq IN WATER 100ML 100 ML IV SCH ×2 (09:07→11:29)
[2022-09-20] MEDS: ENOXAPARIN SODIUM SQ SCH (10:24)
[2022-09-20] MEDS: ROCEPHIN 1 Gm-D5w 50 ml Bag** 1 G/50 ML IVPB IV SCH (10:30)
[2022-09-20] MEDS: solu-MEDROL 80 MG, Sterile H2O 10 ml 2 ML IV SCH ×4 (12:07→17:50)
[2022-09-20] MEDS: Zithromax 500 MG/ 250 ML NaCl Premix 500 MG/250 ML IVPB IV SCH (12:07)
[2022-09-20] MEDS: Adalat CC 30 MG TABLET PO SCH (12:09)
[2022-09-20] MEDS: ZOCOR 20MG PO SCH (12:09)
[2022-09-20] MEDS: Prozac 20 MG PO SCH (12:10)
[2022-09-20] MEDS: Cozaar 50 MG PO SCH (12:10)
[2022-09-20] MEDS: Protonix 40MG Tablet PO SCH (12:10)
[2022-09-20] MEDS: CHLORTHALIDONE PO SCH (12:12)
[2022-09-20] MEDS: SYNTHROID 88 MCG PO SCH (12:12)
[2022-09-20] MEDS: ECOTRIN 81 MG PO SCH (12:12)
[2022-09-20 17:01] LABS: 027 TOX PROD PRESUMPTIVE NEGATIVE (NEGATIVE); TOXIGENIC C. DIFF ORG NEGATIVE (NEGATIVE)
[2022-09-21] MEDS: solu-MEDROL 80 MG, Sterile H2O 10 ml 2 ML IV SCH ×6 (00:25→12:18)
[2022-09-21 05:15] LABS: Hematocrit 28.6 % (35-47); Hemoglobin 8.5 g/dL (12.0-16.0); Mean Corpuscular Hemoglobin 19.9 pg (26-32); Mean Corpuscular Hgb Concent. 29.7 g/dL (32-36); Mean Platelet Volume 11.4 fL (7.5-11.0); Platelet Count 350 x10^3/uL (150-450); Red Blood Count 4.27 x10^6/uL (4.1-5.4); Red Cell Distribution Width 22.3 % (11.5-14.0)
[2022-09-21 05:41] LABS: ANION GAP 9.5 MEQ/L (5-15); Calcium 7.6 mg/dL (8.4-10.2); Creatinine 1 1.44 mg/dL (0.52-1.04); EST GLOMERULAR FILTRATION RATE 37.5 ML/MIN; MAGNESIUM 2.3 mg/dL (1.6-2.3); Potassium 3.2 mmol/L (3.5-5.1)
[2022-09-21 07:26] LABS: Slide Review 1 YES
[2022-09-21] MEDS ORDERED: NON-FORMULARY ITEM (Omeprazole [Omeprazole] 20 MG Tablet.Dr) PO SCH (10:00)
[2022-09-21] MEDS ORDERED: K-LYTE PO ONE (10:22)
--- NOTE | 2022-09-21 10:27 | PCM.DS ---
Discharge Summary Date of Admission: 09/20/22 01:48 Admitting Physician: BRENDAN BLAS Primary Care Provider: ZAN RENEE LYUDMILA Allergies Allergies No Known Drug Allergies Allergy (Verified 09/19/22 17:30) Hospital Summary - Hospital Course Hospital Course: patient admitted with cough, wheezing and short of breath. elevated d-dimer, awaiting VQ scan due to gfr. she is feeling much better and on room air. has some loose stools but has this chronically, c diff negative. advancing diet, if VQ negative can go home later today. - Vitals & Intake/Output Vital Signs: Vital Signs Temperature 97.7 F 09/21/22 07:13 Pulse Rate 88 09/21/22 09:15 Respiratory Rate 16 09/21/22 09:15 Blood Pressure 97/49 09/21/22 07:13 O2 Sat by Pulse Oximetry 95 09/21/22 09:15 Intake & Output: Intake & Output 09/18/22 09/19/22 09/20/22 09/21/22 11:59 11:59 11:59 11:59 Intake Total 250 2424 Output Total 100 900 Balance 150 1524 Weight 85.8 kg - Lab Result Diagrams: 09/21/22 05:02 09/21/22 05:02 Lab Results-Last 24 Hrs: Lab Results-Last 24 Hours 09/19/22 09/20/22 09/20/22 Range/Units 15:48 15:48 16:15 WBC (4.0-10.5) x10^3/uL RBC (4.1-5.4) x10^6/uL Hgb (12.0-16.0) g/dL Hct (35-47) % MCV (78-100) fL MCH (26-32) pg MCHC (32-36) g/dL RDW (11.5-14.0) % Plt Count (150-450) x10^3/uL MPV (7.5-11.0) fL Sodium (137-145) mmol/L Potassium 3.6 D (3.5-5.1) mmol/L Chloride (98-107) mmol/L Carbon Dioxide (22-30) mmol/L Anion Gap (5-15) MEQ/L BUN (7-17) mg/dL Creatinine (0.52-1.04) mg/dL Estimated GFR ML/MIN Glucose (74-106) mg/dL Calcium (8.4-10.2) mg/dL Magnesium (1.6-2.3) mg/dL Stool Occult Blood NEGATIVE (NEGATIVE) C. difficile Screen NEGATIVE (NEGATIVE) C.difficile [id number]-[id number] PRESUMPTIVE NEGATIVE (NEGATIVE) Slides for Path Review 09/21/22 09/21/22 Range/Units 05:02 05:02 WBC 10.0 (4.0-10.5) x10^3/uL RBC 4.27 (4.1-5.4) x10^6/uL Hgb 8.5 L (12.0-16.0) g/dL Hct 28.6 L (35-47) % MCV 67.0 L (78-100) fL MCH 19.9 L (26-32) pg MCHC 29.7 L (32-36) g/dL RDW 22.3 H (11.5-14.0) % Plt Count 350 (150-450) x10^3/uL MPV 11.4 H (7.5-11.0) fL Sodium 132 L (137-145) mmol/L Potassium 3.2 L (3.5-5.1) mmol/L Chloride 101 (98-107) mmol/L Carbon Dioxide 26 (22-30) mmol/L Anion Gap 9.5 (5-15) MEQ/L BUN 39 H (7-17) mg/dL Creatinine 1.44 H (0.52-1.04) mg/dL Estimated GFR 37.5 ML/MIN Glucose 168 H (74-106) mg/dL Calcium 7.6 L (8.4-10.2) mg/dL Magnesium 2.3 (1.6-2.3) mg/dL Stool Occult Blood (NEGATIVE) C. difficile Screen (NEGATIVE) C.difficile [id number] (NEGATIVE) Slides for Path Review YES Micro Results-Entire Visit: Microbiology 09/19/22 18:00 Blood Culture - Preliminary Blood NO GROWTH TO DATE 09/19/22 17:00 Blood Culture - Preliminary Blood NO GROWTH TO DATE - Radiology Exams Ordered Rad Exams-Entire Visit: Radiology Procedures Category Date Time Status CHEST 1 VIEW (PORTABLE) Stat Exams 09/19/22 17:48 Completed PULMONARY PERF VENTILATION [NUCMED] Stat Exams 09/21/22 01:52 Ordered - Procedures and Test Procedures and Tests throughout Hospitalization: Therapy Orders & Screens 09/20/22 01:52 EKG REPEAT IN AM Comment: Oxygen Nasal Cannula 2 lpm Comment: Respiratory Therapy Consult ROUTINE Comment: Reason For Exam: 09/20/22 08:00 RT Screen per Nursing Assess ONCE Comment: Protocol Order Physician Instructions: Greater than 3 points order RT Admission Screen Reason For Exam: Triggered on Admission Diagnosis: Hyponatremia, Elevated D-Dimer, Elevated Troponin Diagnosis: Hyponatremia, Elevated D-Dimer, Elevated Troponin Pneumonia: No Home O2: No Asthma: Yes CHF: Yes Home CPAP/BIPAP: No Home Nebs/MDI: No Total Points: 7 Smoking Cessation Education ONCE Comment: Diagnosis: Hyponatremia, Elevated D-Dimer, Elevated Troponin Smoking Status: Current every day smoker How long have you smoked: 50 + years Have you smoked in the past 12 months: Yes Approximately how many cigarettes per day: 20 Do you dip or chew tobacco: No 09/20/22 19:16 Respiratory Therapy Assessment DAILY Comment: Diagnosis: Hyponatremia, Elevated D-Dimer, Elevated Troponin Discharge Exam General Appearance: no apparent distress, alert Respiratory Exam: normal breath sounds, lungs clear, No respiratory distress Cardiovascular Exam: regular rate/rhythm, normal heart sounds Gastrointestinal/Abdomen Exam: soft, No tenderness, No mass Extremity Exam: normal inspection, normal range of motion Skin Exam: normal color, warm, dry Final Diagnosis/Problem List - Final Discharge Diagnosis/Problem (1) Acute exacerbation of chronic obstructive airways disease Current Visit: Yes Status: Acute Assessment & Plan: home on po prednisone and doxycycline. Code(s): J44.1 - CHRONIC OBSTRUCTIVE PULMONARY DISEASE W (ACUTE) EXACERBATION (2) Hypokalemia Current Visit: Yes Status: Acute Code(s): E87.6 - HYPOKALEMIA (3) Hypomagnesemia Current Visit: Yes Status: Acute Code(s): E83.42 - HYPOMAGNESEMIA - Discharge Disposition: Home, Self-Care Condition: Good Prescriptions: New Prednisone 20 mg [Deltasone 20 mg] 20 mg PO UD #18 tablet Albuterol Common Canister [Ventolin Common Canister] 2 puff IH Q4H PRN PRN #2 units PRN Reason: Shortness Of Breath/Wheezing Doxycycline Hyclate 100 mg [Vibramycin 100 MG] 100 mg PO BID #14 tab Continue Ergocalciferol (Vitamin D2) [Vitamin D2] 50,000 unit PO DAILY Alendronate Sodium 70 mg [Fosamax 70 MG] 70 mg PO Q7D@0600 Simvastatin 40 mg PO DAILY Omeprazole 20 mg PO DAILY Nifedipine [Procardia Xl] 30 mg PO DAILY Losartan Potassium [Cozaar] 100 mg PO DAILY Levothyroxine Sodium [Levothyroxine] 88 mcg PO DAILY Fluoxetine HCl [Prozac] 40 mg PO DAILY Cyanocobalamin (Vitamin B-12) [Vitamin B-12] 1,000 mcg PO DAILY Chlorthalidone 25 mg PO DAILY Aspirin EC 81 mg [Ecotrin 81 mg] 81 mg PO DAILY #0 Follow up with: ZAN RENEE MD [Primary Care Provider] -
[2022-09-21] MEDS: ZOCOR 20MG PO SCH (10:35)
[2022-09-21] MEDS: Cozaar 50 MG PO SCH (10:35)
[2022-09-21] MEDS: ROCEPHIN 1 Gm-D5w 50 ml Bag** 1 G/50 ML IVPB IV SCH (10:35)
[2022-09-21] MEDS: Prozac 20 MG PO SCH (10:36)
[2022-09-21] MEDS: Protonix 40MG Tablet PO SCH (10:36)
[2022-09-21] MEDS: Adalat CC 30 MG TABLET PO SCH (10:36)
[2022-09-21] MEDS: ENOXAPARIN SODIUM SQ SCH (10:36)
[2022-09-21] MEDS: ECOTRIN 81 MG PO SCH (10:36)
[2022-09-21] MEDS: CHLORTHALIDONE PO SCH (10:36)
[2022-09-21] MEDS: SYNTHROID 88 MCG PO SCH (10:37)
[2022-09-21] MEDS: Zithromax 500 MG/ 250 ML NaCl Premix 500 MG/250 ML IVPB IV SCH (11:07)
--- NOTE | 2022-09-21 13:38 | XRAY ---
Indication: Chest x-ray for VQ scan. Elevated d-dimer. Comparison: September 19, 2022 PA/lateral chest again hyperinflated and clear. Heart not enlarged. No new/acute cardiopulmonary abnormalities.
--- NOTE | 2022-09-21 13:52 | XRAY ---
Indication: Short of breath 3 days. Elevated d-dimer. Patient received 5.6 mCi technetium 99 MAA for the perfusion portion of the exam. Patient inhaled 39.2 mCi aerosolized technetium 99 DTPA for the ventilation portion of the exam. Multiple planar images obtained. Perfusion images demonstrates homogeneous radiopharmaceutical activity bilaterally. No segmental or subsegmental perfusion defect. Ventilation images also demonstrates homogeneous radiopharmaceutical activity bilaterally. Small amount of central radiopharmaceutical activity favors chronic obstructive disease. Also small amount of ingested radiopharmaceutical in the GI system. Impression: No perfusion defects. PIOPED criteria for pulmonary embolus is normal scan. Incidental chronic obstructive disease.
[2022-09-21 15:00] VITALS: BP 114/55; PULSE 74; O2SAT 91
== END 2022-09-21 15:15 | disposition home or self-care (01) ==
LOC: ED 17:26 → MED SURG 09-20 01:48
PROVIDERS: ADMIT General Practice; ATTEND Family Medicine
DX: J44.1 Chronic obstructive pulmonary disease with (acute) exacerbation (principal); E87.6 Hypokalemia; E83.42 Hypomagnesemia; R77.8 Other specified abnormalities of plasma proteins; E78.5 Hyperlipidemia, unspecified; I10 Essential (primary) hypertension; Z79.899 Other long term (current) drug therapy; Z20.828 Contact with and (suspected) exposure to other viral communicable diseases; Z72.0 Tobacco use
CPT/HCPCS: 0241U; 36000; 36415; 51702; 71045; 71046; 78582; 80048; 80053; 81015; 83605; 83735; 83880; 84132; 84145; 84484; 85025; 85379; 85610; 87040; 87045; 87046; 87493; 93005; 94760; 94762; 96372; 96374; 99285; A9540; A9567; G0328; 82274; 93268; J0456; J0696; J1650; J1940; J2930; J3480; A9270-GY; G0378; J3475

== ENCOUNTER 2023-02-07 05:48 | Day surgery (SDC) | payer MEDICARE ==
[2023-02-07 06:24] VITALS: O2SAT 94
[2023-02-07] MEDS ORDERED: Lactated Ringers 1,000 ML IV ONE (06:30)
[2023-02-07] MEDS ORDERED: Lactated Ringers 1,000 ML IV SCH (07:00)
[2023-02-07] MEDS ORDERED: Xylocaine-Mpf 2% 5 Ml Vial ONE (08:01)
[2023-02-07] MEDS ORDERED: DIPRIVAN 200 MG/20 ML IV ONE ×2 (08:02→08:13)
--- NOTE | 2023-02-07 09:03 | OP ---
SURGERY DATE/TIME: 02/07/2023 0801 PREOPERATIVE DIAGNOSIS: Iron deficiency anemia. POSTOPERATIVE DIAGNOSES: 1) Small nodular lesion on the duodenal mucosa. 2) Normal colon. PROCEDURES: 1) EGD. 2) Colonoscopy. SURGEON: Brennan Johns M.D. ANESTHESIA: MAC by Andrew Kamara CRNA. ESTIMATED BLOOD LOSS: Minimal. SPECIMENS: There is cold forceps biopsy of nodular lesion from the duodenum. DESCRIPTION OF PROCEDURE: After informed written consent was obtained, the patient was taken to the endoscopy suite. She was placed in the left lateral decubitus position. A bite block inserted and anesthesia was titrated to desired level of consciousness. First, the endoscope was inserted in the posterior oropharynx and under direct visualization the esophagus was traversed. Esophageal mucosa had a normal appearance. The gastroesophageal junction had a crisp Z-line with normal mucosal appearance. Upon entering the stomach there is normal rugated gastric mucosa. There were no areas of inflammation or bleeding appreciable. The pylorus is traversed and there was a small nodular lesion in the proximal duodenum that is flat and benign appearing. It was grasped with forceps and removed with minimal blood loss with cold forceps biopsy. The remainder of the exam likewise revealed all normal mucosal structures upon removal of the scope. The scope was removed and the scopes were switched. Digital rectal exam showed normal sphincter tone and no internal lesions. Next, the scope was then inserted in the rectum and sequentially the entire colonic mucosa was traversed. The level of the cecum was reached and verified with direct visualization of the ileocecal valve. Upon withdrawal careful mucosal inspection revealed no gross abnormalities. Prior to withdrawal retroflexion was performed and showed no internal lesions. The scope was removed and the patient was transferred to the recovery room in good condition. She has been advised to hold her aspirin for the next five days and follow up in a week for pathology results.
[2023-02-07 09:18] VITALS: BP 115/60; PULSE 68
== END 2023-02-07 09:22 | disposition home or self-care (01) ==
LOC: SDC 05:48
PROVIDERS: ATTEND Family Medicine
DX: K29.80 Duodenitis without bleeding (principal); K31.89 Other diseases of stomach and duodenum; D64.9 Anemia, unspecified
CPT/HCPCS: 99100; J2704

== ENCOUNTER 2023-09-14 11:17 | Observation (INO) | payer MEDICARE ==
--- NOTE | 2023-09-14 11:24 | ERPHSYRPT ---
- History of Present Illness Time Seen by Provider: 09/14/23 11:24 Source: patient, family Exam Limitations: no limitations Physician History: This is a 77-year-old white female patient of Dr. Renee who was brought into the emergency department by her niece in law secondary to 2 weeks of worsening weakness, decreased appetite and unexplained and unintentional weight loss of 10 pounds over the last 1 to 2 weeks. Patient denies shortness of breath. Patient denies abdominal pain. She does not have chest pain. Patient has a history of COPD, hyperlipidemia, hypertension, hypothyroidism, arthritis, osteoporosis, chronic anemia and gastroesophageal reflux disease. Timing/Duration: week(s) (2) Severity: mild Associated Symptoms: loss of appetite, malaise, weakness, No nausea, No vomiting, No abdominal pain, No shortness of breath, No chest pain, No fever, No headaches Allergies/Adverse Reactions: No Known Drug Allergies Allergy (Verified 09/14/23 11:37) Home Medications: Alendronate Sodium 70 mg [Fosamax 70 MG] 70 mg PO Q7D@0600 02/09/22 [History] Chlorthalidone 25 mg PO DAILY 02/09/22 [History] Cyanocobalamin (Vitamin B-12) [Vitamin B-12] 1,000 mcg PO DAILY 02/09/22 [History] Ergocalciferol (Vitamin D2) [Vitamin D2] 50,000 unit PO DAILY 02/09/22 [History] Fluoxetine HCl [Prozac] 40 mg PO DAILY 02/09/22 [History] Levothyroxine Sodium 88 mcg PO DAILY 02/09/22 [History] Losartan Potassium [Cozaar] 100 mg PO DAILY 02/09/22 [History] Nifedipine [Procardia Xl] 30 mg PO DAILY 02/09/22 [History] Omeprazole 20 mg PO DAILY 02/09/22 [History] Simvastatin 40 mg PO DAILY 02/09/22 [History] Ferrous Sulfate [Ferosul] 1 tab PO DAILY 02/05/23 [History] Magnesium Citrate and Oxide [Magnesium] 250 mg PO DAILY 02/05/23 [History] Hx Influenza Vaccination/Date Given: Yes Hx Pneumococcal Vaccination/Date Given: Yes Travel Risk - Vaccine Status Have you recieved a Covid-19 vaccination: Yes Network Design Architect: Unknown - Vaccination Dates Date of 2cond Vaccination (if applicable): 2020 Dates if Unknown: ? - Past Medical History Pertinent Past Medical History: Yes Neurological History: No Pertinent History ENT History: No Pertinent History Cardiac History: High Cholesterol, Hypertension Respiratory History: COPD Endocrine Medical History: Hypothyroidism Musculoskeletal History: Arthritis, Osteoporosis GI Medical History: Gallbladder Disease History: No Pertinent History Psycho-Social History: No Pertinent History Female Reproductive Disorders: No Pertinent History - Past Surgical History Past Surgical History: Yes Neuro Surgical History: No Pertinent History Cardiac: No Pertinent History Respiratory: No Pertinent History Gastrointestinal: Cholecystectomy Genitourinary: No Pertinent History Musculoskeletal: No Pertinent History Female Surgical History: No Pertinent History Other Surgical History: upper and lower scopes - Social History Smoking Status: Current every day smoker How long have you smoked: 50 + years Exposure to second hand smoke: Yes Drug Use: none Patient Lives Alone: No - Nursing Vital Signs Nursing Vital Signs: Initial Vital Signs Temperature 97.6 F 09/14/23 11:18 Pulse Rate 62 09/14/23 11:18 Respiratory Rate 20 09/14/23 11:18 Blood Pressure 118/46 09/14/23 11:18 O2 Sat by Pulse Oximetry 92 L 09/14/23 11:18 Pain Scale Pain Intensity 0 - Course Nursing assessment & vital signs reviewed: Yes Ordered Tests: Active Orders 24 hr Category Date Time Status EKG-ER Only STAT Care 09/14/23 12:04 Active IV Insertion STAT Care 09/14/23 12:04 Active Oxygen-ED Only Nasal Cannula 2 lpm Care 09/14/23 12:14 Active Pulse Oximetry (ED) STAT Care 09/14/23 12:04 Active CHEST 1 VIEW (PORTABLE) Stat Exams 09/14/23 14:30 Completed BLOOD CULTURE Stat Lab 09/14/23 12:55 Received CBC W DIFF Stat Lab 09/14/23 Completed CMP Stat Lab 09/14/23 Completed CULTURE,URINE Stat Lab 09/14/23 12:13 Received Lactic Acid Stat Lab 09/14/23 12:15 Completed Lactic Acid Stat Lab 09/14/23 14:23 Received MAGNESIUM Stat Lab 09/14/23 Completed MONO SCREEN Stat Lab 09/14/23 Completed NT PRO BNPII Stat Lab 09/14/23 Completed T4 (Thyroxine) Stat Lab 09/14/23 Completed TROPONIN Q4H Lab 09/14/23 Completed TROPONIN Q4H Lab 09/14/23 16:15 Ordered TROPONIN Q4H Lab 09/14/23 20:15 Ordered TSH, 3RD Generation Stat Lab 09/14/23 Completed UA W/RFX UR CULTURE Stat Lab 09/14/23 12:13 Completed Medication Summary Generic Name Dose Route Start Last Admin Trade Name Freq PRN Reason Stop Dose Admin Sodium Chloride 1,000 mls @ 250 mls/hr 09/14/23 12:15 09/14/23 14:00 Sodium Chloride 0.9% 1000 Ml IV 10/14/23 12:14 Not Given .Q4H BLUE Ceftriaxone Sodium/Dextrose 1 g in 50 mls @ 100 mls/hr 09/14/23 15:02 09/14/23 15:22 Rocephin 1 Gm-D5w 50 Ml Bag IV 09/14/23 15:31 100 mls/hr STAT STA 100 mls/hr Administration Discontinued Medications Generic Name Dose Route Start Last Admin Trade Name Freq PRN Reason Stop Dose Admin Furosemide 40 mg 09/14/23 13:59 09/14/23 14:07 Furosemide 40 Mg/4 Ml Vial IV 09/14/23 14:00 40 mg STAT ONE Administration Furosemide Confirm 09/14/23 14:02 Furosemide 40 Mg/4 Ml Vial Administered 09/14/23 14:03 Dose 40 mg .ROUTE .STK-MED ONE Ceftriaxone Sodium/Dextrose Confirm 09/14/23 15:20 Rocephin 1 Gm-D5w 50 Ml Bag Administered 09/14/23 15:21 Dose 1 g in 50 mls @ ud IV .STK-MED ONE Lab/Rad Data: Laboratory Result Diagrams 09/14/23 Unknown 09/14/23 Unknown Laboratory Results 09/14/23 09/14/23 09/14/23 Range/Units Unknown Unknown Unknown WBC (4.0-10.5) x10^3/uL RBC (4.1-5.4) x10^6/uL Hgb (12.0-16.0) g/dL Hct (35-47) % MCV (78-100) fL MCH (26-32) pg MCHC (32-36) g/dL RDW (11.5-14.0) % Plt Count (150-450) x10^3/uL MPV (7.5-11.0) fL Gran % (36.0-66.0) % Immature Gran % (Auto) (0.00-0.4) % Nucleat RBC Rel Count (0.00-0.1) % Eos # (Auto) (0-0.5) x10^3/uL Immature Gran # (Auto) (0.00-0.03) x10^3u/L Absolute Lymphs (auto) (1.0-4.6) x10^3/uL Absolute Monos (auto) (0.0-1.3) x10^3/uL Absolute Nucleated RBC (0.00-0.01) x10^3u/L Lymphocytes % (24.0-44.0) % Monocytes % (0.0-12.0) % Eosinophils % (0.00-5.0) % Basophils % (0.0-0.4) % Absolute Granulocytes (1.4-6.9) x10^3/uL Basophils # (0-0.4) x10^3/uL Sodium 133 L (137-145) mmol/L Potassium 3.5 (3.5-5.1) mmol/L Chloride 93 L (98-107) mmol/L Carbon Dioxide 25 (22-30) mmol/L Anion Gap 17.6 H (5-15) MEQ/L BUN 34 H (7-17) mg/dL Creatinine 1.98 H (0.52-1.04) mg/dL Estimated GFR 25.6 ML/MIN Glucose 124 H (74-106) mg/dL Lactic Acid (0.4-2.0) Calcium 9.6 (8.4-10.2) mg/dL Magnesium 1.7 (1.6-2.3) mg/dL Total Bilirubin 1.20 (0.2-1.3) mg/dL AST 50 H (14-36) U/L ALT 29 (0-35) U/L Alkaline Phosphatase 103 (38-126) U/L Troponin I 0.036 H* (0.000-0.034) ng/mL NT-Pro-B Natriuret Pep 2850 (<300) pg/mL Serum Total Protein 7.8 (6.3-8.2) g/dL Albumin 4.0 (3.5-5.0) g/dL Thyroxine (T4) 9.82 (5.53-10.96) ug/dL TSH 3rd Generation 4.470 (0.47-4.68) mIU/L Urine Color (Yellow) Urine Appearance (Clear) Urine pH (4.6-8.0) Ur Specific [place] (1.005-1.030) Urine Protein (Negative) Urine Glucose (UA) (Negative) mg/dL Urine Ketones (Negative) Urine Blood (Negative) Urine Nitrite (Negative) Urine Bilirubin (Negative) Urine Urobilinogen (0.2) mg/dL Ur Leukocyte Esterase (Negative) U Hyaline Cast (Auto) (0-2) /LPF Urine Microscopic RBC (0-5) /HPF Urine Microscopic WBC (0-5) /HPF Ur Epithelial Cells (None Seen) /HPF Urine Bacteria (None Seen) /HPF Urine Culture Reflexed (NO) Monoscreen NEGATIVE (NEGATIVE) Influenza Type A Ag (NEGATIVE) Influenza Type B Ag (NEGATIVE) RSV (PCR) (NEGATIVE) SARS-CoV-2 (PCR) (NEGATIVE) 09/14/23 09/14/23 09/14/23 Range/Units Unknown 12:40 12:15 WBC 14.0 H (4.0-10.5) x10^3/uL RBC 6.03 H (4.1-5.4) x10^6/uL Hgb 15.8 (12.0-16.0) g/dL Hct 50.0 H (35-47) % MCV 82.9 (78-100) fL MCH 26.2 (26-32) pg MCHC 31.6 L (32-36) g/dL RDW 18.6 H (11.5-14.0) % Plt Count 393 (150-450) x10^3/uL MPV 11.9 H (7.5-11.0) fL Gran % 85.1 H (36.0-66.0) % Immature Gran % (Auto) 2.4 H (0.00-0.4) % Nucleat RBC Rel Count 0.0 (0.00-0.1) % Eos # (Auto) 0 (0-0.5) x10^3/uL Immature Gran # (Auto) 0.34 H (0.00-0.03) x10^3u/L Absolute Lymphs (auto) 0.80 L (1.0-4.6) x10^3/uL Absolute Monos (auto) 0.87 (0.0-1.3) x10^3/uL Absolute Nucleated RBC 0.00 (0.00-0.01) x10^3u/L Lymphocytes % 5.7 L (24.0-44.0) % Monocytes % 6.2 (0.0-12.0) % Eosinophils % 0.0 (0.00-5.0) % Basophils % 0.6 (0.0-0.4) % Absolute Granulocytes 11.87 H (1.4-6.9) x10^3/uL Basophils # 0.09 (0-0.4) x10^3/uL Sodium (137-145) mmol/L Potassium (3.5-5.1) mmol/L Chloride (98-107) mmol/L Carbon Dioxide (22-30) mmol/L Anion Gap (5-15) MEQ/L BUN (7-17) mg/dL Creatinine (0.52-1.04) mg/dL Estimated GFR ML/MIN Glucose (74-106) mg/dL Lactic Acid 2.5 H (0.4-2.0) Calcium (8.4-10.2) mg/dL Magnesium (1.6-2.3) mg/dL Total Bilirubin (0.2-1.3) mg/dL AST (14-36) U/L ALT (0-35) U/L Alkaline Phosphatase (38-126) U/L Troponin I (0.000-0.034) ng/mL NT-Pro-B Natriuret Pep (<300) pg/mL Serum Total Protein (6.3-8.2) g/dL Albumin (3.5-5.0) g/dL Thyroxine (T4) (5.53-10.96) ug/dL TSH 3rd Generation (0.47-4.68) mIU/L Urine Color (Yellow) Urine Appearance (Clear) Urine pH (4.6-8.0) Ur Specific [place] (1.005-1.030) Urine Protein (Negative) Urine Glucose (UA) (Negative) mg/dL Urine Ketones (Negative) Urine Blood (Negative) Urine Nitrite (Negative) Urine Bilirubin (Negative) Urine Urobilinogen (0.2) mg/dL Ur Leukocyte Esterase (Negative) U Hyaline Cast (Auto) (0-2) /LPF Urine Microscopic RBC (0-5) /HPF Urine Microscopic WBC (0-5) /HPF Ur Epithelial Cells (None Seen) /HPF Urine Bacteria (None Seen) /HPF Urine Culture Reflexed (NO) Monoscreen (NEGATIVE) Influenza Type A Ag NEGATIVE (NEGATIVE) Influenza Type B Ag NEGATIVE (NEGATIVE) RSV (PCR) NEGATIVE (NEGATIVE) SARS-CoV-2 (PCR) POSITIVE A (NEGATIVE) 09/14/23 Range/Units 12:13 WBC (4.0-10.5) x10^3/uL RBC (4.1-5.4) x10^6/uL Hgb (12.0-16.0) g/dL Hct (35-47) % MCV (78-100) fL MCH (26-32) pg MCHC (32-36) g/dL RDW (11.5-14.0) % Plt Count (150-450) x10^3/uL MPV (7.5-11.0) fL Gran % (36.0-66.0) % Immature Gran % (Auto) (0.00-0.4) % Nucleat RBC Rel Count (0.00-0.1) % Eos # (Auto) (0-0.5) x10^3/uL Immature Gran # (Auto) (0.00-0.03) x10^3u/L Absolute Lymphs (auto) (1.0-4.6) x10^3/uL Absolute Monos (auto) (0.0-1.3) x10^3/uL Absolute Nucleated RBC (0.00-0.01) x10^3u/L Lymphocytes % (24.0-44.0) % Monocytes % (0.0-12.0) % Eosinophils % (0.00-5.0) % Basophils % (0.0-0.4) % Absolute Granulocytes (1.4-6.9) x10^3/uL Basophils # (0-0.4) x10^3/uL Sodium (137-145) mmol/L Potassium (3.5-5.1) mmol/L Chloride (98-107) mmol/L Carbon Dioxide (22-30) mmol/L Anion Gap (5-15) MEQ/L BUN (7-17) mg/dL Creatinine (0.52-1.04) mg/dL Estimated GFR ML/MIN Glucose (74-106) mg/dL Lactic Acid (0.4-2.0) Calcium (8.4-10.2) mg/dL Magnesium (1.6-2.3) mg/dL Total Bilirubin (0.2-1.3) mg/dL AST (14-36) U/L ALT (0-35) U/L Alkaline Phosphatase (38-126) U/L Troponin I (0.000-0.034) ng/mL NT-Pro-B Natriuret Pep (<300) pg/mL Serum Total Protein (6.3-8.2) g/dL Albumin (3.5-5.0) g/dL Thyroxine (T4) (5.53-10.96) ug/dL TSH 3rd Generation (0.47-4.68) mIU/L Urine Color Dark Yellow A (Yellow) Urine Appearance Turbid A (Clear) Urine pH 5.0 (4.6-8.0) Ur Specific [place] 1.015 (1.005-1.030) Urine Protein 30 (Negative) Urine Glucose (UA) Negative (Negative) mg/dL Urine Ketones Trace A (Negative) Urine Blood Negative (Negative) Urine Nitrite Negative (Negative) Urine Bilirubin Moderate A (Negative) Urine Urobilinogen 1.0 A (0.2) mg/dL Ur Leukocyte Esterase Trace A (Negative) U Hyaline Cast (Auto) NONE SEEN (0-2) /LPF Urine Microscopic RBC 3-5 (0-5) /HPF Urine Microscopic WBC 6-10 A (0-5) /HPF Ur Epithelial Cells Many A (None Seen) /HPF Urine Bacteria Many A (None Seen) /HPF Urine Culture Reflexed YES (NO) Monoscreen (NEGATIVE) Influenza Type A Ag (NEGATIVE) Influenza Type B Ag (NEGATIVE) RSV (PCR) (NEGATIVE) SARS-CoV-2 (PCR) (NEGATIVE) - Progress Progress: improved, re-examined Progress Note: 09/14/23 12:11 This patient's medical issue is 1 of moderate complexity. The level of complexity in the workup performed is based on review of the patient's past medical history, review the patient's medication list, review of the patient's drug allergy list, history of present illness and physical findings on examination. The workup in this patient includes placement of intravenous line, infusion of normal saline solution, CBC, CMP, BNP, troponin level, twelve-lead EKG, urinalysis, magnesium level, viral swabs, mono screen, T4 and TSH levels. 09/14/23 15:03 I reviewed and interpreted the patient's laboratory data results. The patient is positive for COVID-19 infection. She has an elevated BNP. She has a urinary tract infection that is mild. She has ketones in her urine. This is a mild dehydration finding. She also has an elevated BNP. Chest x-ray was interpreted by radiologist and I reviewed the impression. The impression is a new hazy infiltrate in the lingula. 09/14/23 15:[address] Silvestre, our telehospitalist that is on-call at this time. I reviewed the patient history, presenting complaint, laboratory and radiographic study results as well as the response to our workup. She accepts the patient to be placed in observation. Counseled pt/family regarding: lab results, diagnosis, need for follow-up Medical Desision Making - Independent Historian Additional History obtained from: Family - Discussion of managment Care discussed with:: hospitalist Reviewed:: Test results, Need for additional workup Agreed on:: place in obs - Diagnostic Testing Diagnostic test were ordered, analyzed, and reviewed by me: Yes Radiological Interpretation: Reviewed by me, Teleradiologist Report - Risk of complications The pt has a high risk of morbidity or mortality based on: Decision regarding hospitilization or escalation of hosp level of care - Departure Departure Disposition: Observation Clinical Impression: COVID-19 virus infection, Elevated troponin, Mild dehydration, UTI (urinary tract infection), Renal insufficiency, Elevated brain natriuretic peptide (BNP) level, COPD (chronic obstructive pulmonary disease) Condition: Fair Critical Care Time: No Referrals: ZAN RENEE MD [Primary Care Provider] - Follow up/PCP as directed Instructions: Chronic Obstructive Pulmonary Disease
[2023-09-14 12:46] LABS: Absolute Neutrophil Ct (ANC) 11.87 x10^3/uL (1.4-6.9); BASOPHIL % 0.6 % (0.0-0.4); Basophil (Absolute #) 0.09 x10^3/uL (0-0.4); Eosinophil (Absolute #) 0 x10^3/uL (0-0.5); Hemoglobin 15.8 g/dL (12.0-16.0); IMMATURE GRAN # 0.34 x10^3u/L (0.00-0.03); IMMATURE GRAN % 2.4 % (0.00-0.4); Lymphocytes % 5.7 % (24.0-44.0); Mean Cell Volume 82.9 fL (78-100); Mean Corpuscular Hemoglobin 26.2 pg (26-32); Mean Corpuscular Hgb Concent. 31.6 g/dL (32-36); Mean Platelet Volume 11.9 fL (7.5-11.0); Monocyte (Absolute #) 0.87 x10^3/uL (0.0-1.3); Monocytes % 6.2 % (0.0-12.0); Neutrophil % 85.1 % (36.0-66.0); Platelet Count 393 x10^3/uL (150-450); Red Blood Count 6.03 x10^6/uL (4.1-5.4); Red Cell Distribution Width 18.6 % (11.5-14.0)
[2023-09-14 13:37] LABS: ANION GAP 17.6 MEQ/L (5-15); BILIRUBIN,TOTAL 1.2 mg/dL (0.2-1.3); Calcium 9.6 mg/dL (8.4-10.2); Creatinine 1 1.98 mg/dL (0.52-1.04); EST GLOMERULAR FILTRATION RATE 25.6 ML/MIN; MAGNESIUM 1.7 mg/dL (1.6-2.3); Potassium 3.5 mmol/L (3.5-5.1); T4 (Thyroxine) 9.82 ug/dL (5.53-10.96); TSH, 3RD Generation 4.47 mIU/L (0.47-4.68); Total Protein 7.8 g/dL (6.3-8.2)
[2023-09-14 13:48] LABS: INFLUENZA A NEGATIVE (NEGATIVE); INFLUENZA B NEGATIVE (NEGATIVE); RESPIRATORY SYNCTIAL VIRUS NEGATIVE (NEGATIVE)
[2023-09-14] MEDS ORDERED: Lasix 40 MG/4 ML IV ONE (13:59)
[2023-09-14] MEDS: Sodium Chloride 0.9% 1000 ML 1,000 ML IV SCH ×3 (14:00→18:27)
[2023-09-14 14:02] LABS: SARS-CoV-2 Xpert Express POSITIVE (NEGATIVE)
[2023-09-14] MEDS ORDERED: Lasix 40 MG/4 ML ONE (14:02)
[2023-09-14 14:43] LABS: Appearance Turbid (Clear); Bacteria Many /HPF (None Seen); Bilirubin Moderate (Negative); Blood Negative (Negative); Epithelial Cells Many /HPF (None Seen); Glucose, Urine Negative (Negative); Hyaline Casts NONE SEEN /LPF (0-2); Ketones Trace (Negative); Leukocyte Esterase Trace (Negative); Nitrite Negative (Negative); Protein,Urine Dip 30 (Negative); Specific Gravity 1.015 (1.005-1.030)
--- NOTE | 2023-09-14 14:53 | XRAY ---
Indication: Short of breath. Covid 19. Comparison: September 21, 2022 Portable chest demonstrates new hazy lingula infiltrate/atelectasis. Remaining heart and lungs unremarkable again with incidental small mediastinal calcified nodes. Bony thorax intact.
[2023-09-14] MEDS ORDERED: ROCEPHIN 1 Gm-D5w 50 ml Bag** 1 G/50 ML IVPB IV STA (15:02)
[2023-09-14 15:06] LABS: ADD URINE CULTURE? YES (NO)
[2023-09-14] MEDS ORDERED: ROCEPHIN 1 Gm-D5w 50 ml Bag** 1 G/50 ML IVPB IV ONE (15:20)
[2023-09-14] MEDS ORDERED: Sodium Chloride 0.9% 1000 ML 1,000 ML ONE (16:23)
--- NOTE | 2023-09-14 17:19 | PCM.HP ---
<GLADIS RUBALCAVA - Last Filed: 09/14/23 18:22> History of Present Illness - Chief Complaint Chief Complaint: COVID Date: 09/14/23 History of Present Illness: is a 77 year old female with a PMHX of depression, COPD, hyperlipidem ia, hypertension, hypothyroidism, arthritis, osteoporosis, chronic anemia and gastroesophageal reflux disease. She is a daily smoker. She was brought into the emergency room by family for 2 weeks of worsening weakness, decreased appetite and unexplained and unintentional weight loss of 10 pounds over the last 1 to 2 weeks. She was positive for COVID in the ER she has had sxs for greater than a week now. UA shows UTI and treated with rocephin. IV fluids started for dehydration and CHRISTOPHE. She was also given lasix as her BNP was 2850. She has no edema or hx of CHF. She is on baseline 2LNC at HS. Lactic acid elevated and 500ml fluid bolus ordered, will recheck repeat LA in 3 hours. Chest XR shows pneumonia- will start steroids and azithromycin. She denies CP, SOB, Abd. pain, N/V/D. - Review of Systems Constitutional: Chills, Weakness, Weight Loss, Other (sweats), No Fever Eyes: No Symptoms Ears, Nose, & Throat: No Symptoms Respiratory: Wheezing, No Cough, No Short Of Breath Cardiac: No Chest Pain, No Edema, No Syncope Abdominal/Gastrointestinal: No Abdominal Pain, No Nausea, No Vomiting, No Diarrhea Genitourinary Symptoms: No Dysuria Musculoskeletal: No Back Pain, No Neck Pain Skin: No Rash Neurological: No Dizziness, No Focal Weakness, No Sensory Changes Psychological: No Symptoms Endocrine: No Symptoms Hematologic/Lymphatic: No Symptoms Immunological/Allergic: No Symptoms Medications & Allergies Home Medications: Home Medication List Alendronate Sodium 70 mg [Fosamax 70 MG] 70 mg PO Q7D@0600 02/09/22 [History Confirmed 09/14/23] Chlorthalidone 25 mg PO DAILY 02/09/22 [History Confirmed 09/14/23] Cyanocobalamin (Vitamin B-12) [Vitamin B-12] 1,000 mcg PO DAILY 02/09/22 [History Confirmed 09/14/23] Ergocalciferol (Vitamin D2) [Vitamin D2] 50,000 unit PO DAILY 02/09/22 [History Confirmed 09/14/23] Fluoxetine HCl [Prozac] 40 mg PO DAILY 02/09/22 [History Confirmed 09/14/23] Levothyroxine Sodium 88 mcg PO DAILY 02/09/22 [History Confirmed 09/14/23] Losartan Potassium [Cozaar] 100 mg PO DAILY 02/09/22 [History Confirmed 09/14/23] Nifedipine [Procardia Xl] 30 mg PO DAILY 02/09/22 [History Confirmed 09/14/23] Omeprazole 20 mg PO DAILY 02/09/22 [History Confirmed 09/14/23] Simvastatin 40 mg PO DAILY 02/09/22 [History Confirmed 09/14/23] Albuterol Common Canister [Ventolin Common Canister] 2 puff IH Q4H PRN PRN #2 units 09/21/22 [Rx Confirmed 09/14/23] Ferrous Sulfate [Ferosul] 1 tab PO DAILY 02/05/23 [History Confirmed 09/14/23] Magnesium Citrate and Oxide [Magnesium] 250 mg PO DAILY 02/05/23 [History Confirmed 09/14/23] Aspirin EC 81 mg [Ecotrin 81 mg] 81 mg PO DAILY #0 02/07/23 [Rx Confirmed 09/14/23] Allergies/Adverse Reactions: Allergies Allergy/AdvReac Type Severity Reaction Status Date / Time No Known Drug Allergies Allergy Verified 09/14/23 11:37 - Past Medical History Past Medical History: Yes Neurological History: No Pertinent History ENT History: No Pertinent History Cardiac History: High Cholesterol, Hypertension Respiratory History: COPD Endocrine Medical History: Hypothyroidism Musculoskelatal History: Arthritis, Osteoporosis GI Medical History: Gallbladder Disease History: No Pertinent History Pyscho-Social History: No Pertinent History Reproductive Disorders: No Pertinent History - Past Surgical History Past Surgical History: Yes Neuro Surgical History: No Pertinent History Cardiac History: No Pertinent History Respiratory Surgery: No Pertinent History GI Surgical History: Cholecystectomy Genitourinary Surgical Hx: No Pertinent History Musculskeletal Surgical Hx: No Pertinent History Female Surgical History: No Pertinent History Other Surgical History: upper and lower scopes - Social History Smoking Status: Current every day smoker How long have you smoked: 50 + years Exposure to second hand smoke: Yes Alcohol: None Drug Use: none - Physical Exam Vital Signs: Vital Signs - 24 hr Temp Pulse Resp BP BP Pulse Ox 09/14/23 16:30 61 114/39 96 09/14/23 16:17 106/42 96 09/14/23 15:30 131/45 96 09/14/23 15:01 111/47 97 09/14/23 14:31 120/54 94 L 09/14/23 14:01 57 L 18 106/40 97 09/14/23 13:30 56 L 14 105/47 97 09/14/23 13:00 58 L 17 109/50 96 09/14/23 12:13 90 L 09/14/23 12:08 58 L 17 103/50 98 09/14/23 12:07 61 16 97 09/14/23 12:02 62 17 91 L 09/14/23 11:30 64 19 118/46 90 L 09/14/23 11:18 97.6 F 62 20 118/46 92 L General Appearance: no apparent distress, alert Neurologic Exam: alert, oriented x 3, cooperative, normal mood/affect, nml cerebellar function, nml station & gait, sensation nml, No motor deficits Eye Exam: PERRL/EOMI, eyes nml inspection Ears, Nose, Throat Exam: normal ENT inspection, TMs normal, pharynx normal, moist mucous membranes Neck Exam: normal inspection, non-tender, supple, full range of motion Respiratory Exam: crackles/rales (BLLL), wheezing (throughout), No respiratory distress Cardiovascular Exam: regular rate/rhythm, normal heart sounds, normal peripheral pulses Gastrointestinal/Abdomen Exam: soft, normal bowel sounds, No tenderness, No mass Back Exam: normal inspection, normal range of motion, No CVA tenderness, No vertebral tenderness Extremity Exam: normal inspection, normal range of motion, pelvis stable Skin Exam: normal color, warm, dry, No rash Lymphatic Exam: No adenopathy Results - Labs Lab/Micro Results: Lab Results-Last 24 Hours 09/14/23 09/14/23 09/14/23 Range/Units 12:13 12:15 12:40 WBC (4.0-10.5) x10^3/uL RBC (4.1-5.4) x10^6/uL Hgb (12.0-16.0) g/dL Hct (35-47) % MCV (78-100) fL MCH (26-32) pg MCHC (32-36) g/dL RDW (11.5-14.0) % Plt Count (150-450) x10^3/uL MPV (7.5-11.0) fL Gran % (36.0-66.0) % Immature Gran % (Auto) (0.00-0.4) % Nucleat RBC Rel Count (0.00-0.1) % Eos # (Auto) (0-0.5) x10^3/uL Immature Gran # (Auto) (0.00-0.03) x10^3u/L Absolute Lymphs (auto) (1.0-4.6) x10^3/uL Absolute Monos (auto) (0.0-1.3) x10^3/uL Absolute Nucleated RBC (0.00-0.01) x10^3u/L Lymphocytes % (24.0-44.0) % Monocytes % (0.0-12.0) % Eosinophils % (0.00-5.0) % Basophils % (0.0-0.4) % Absolute Granulocytes (1.4-6.9) x10^3/uL Basophils # (0-0.4) x10^3/uL Sodium (137-145) mmol/L Potassium (3.5-5.1) mmol/L Chloride (98-107) mmol/L Carbon Dioxide (22-30) mmol/L Anion Gap (5-15) MEQ/L BUN (7-17) mg/dL Creatinine (0.52-1.04) mg/dL Estimated GFR ML/MIN Glucose (74-106) mg/dL Lactic Acid 2.5 H (0.4-2.0) Calcium (8.4-10.2) mg/dL Magnesium (1.6-2.3) mg/dL Total Bilirubin (0.2-1.3) mg/dL AST (14-36) U/L ALT (0-35) U/L Alkaline Phosphatase (38-126) U/L Troponin I (0.000-0.034) ng/mL NT-Pro-B Natriuret Pep (<300) pg/mL Serum Total Protein (6.3-8.2) g/dL Albumin (3.5-5.0) g/dL Thyroxine (T4) (5.53-10.96) ug/dL TSH 3rd Generation (0.47-4.68) mIU/L Urine Color Dark Yellow A (Yellow) Urine Appearance Turbid A (Clear) Urine pH 5.0 (4.6-8.0) Ur Specific [place] 1.015 (1.005-1.030) Urine Protein 30 (Negative) Urine Glucose (UA) Negative (Negative) mg/dL Urine Ketones Trace A (Negative) Urine Blood Negative (Negative) Urine Nitrite Negative (Negative) Urine Bilirubin Moderate A (Negative) Urine Urobilinogen 1.0 A (0.2) mg/dL Ur Leukocyte Esterase Trace A (Negative) U Hyaline Cast (Auto) NONE SEEN (0-2) /LPF Urine Microscopic RBC 3-5 (0-5) /HPF Urine Microscopic WBC 6-10 A (0-5) /HPF Ur Epithelial Cells Many A (None Seen) /HPF Urine Bacteria Many A (None Seen) /HPF Urine Culture Reflexed YES (NO) Monoscreen (NEGATIVE) Influenza Type A Ag NEGATIVE (NEGATIVE) Influenza Type B Ag NEGATIVE (NEGATIVE) RSV (PCR) NEGATIVE (NEGATIVE) SARS-CoV-2 (PCR) POSITIVE A (NEGATIVE) 09/14/23 09/14/23 09/14/23 Range/Units 14:23 16:15 Unknown WBC 14.0 H (4.0-10.5) x10^3/uL RBC 6.03 H (4.1-5.4) x10^6/uL Hgb 15.8 (12.0-16.0) g/dL Hct 50.0 H (35-47) % MCV 82.9 (78-100) fL MCH 26.2 (26-32) pg MCHC 31.6 L (32-36) g/dL RDW 18.6 H (11.5-14.0) % Plt Count 393 (150-450) x10^3/uL MPV 11.9 H (7.5-11.0) fL Gran % 85.1 H (36.0-66.0) % Immature Gran % (Auto) 2.4 H (0.00-0.4) % Nucleat RBC Rel Count 0.0 (0.00-0.1) % Eos # (Auto) 0 (0-0.5) x10^3/uL Immature Gran # (Auto) 0.34 H (0.00-0.03) x10^3u/L Absolute Lymphs (auto) 0.80 L (1.0-4.6) x10^3/uL Absolute Monos (auto) 0.87 (0.0-1.3) x10^3/uL Absolute Nucleated RBC 0.00 (0.00-0.01) x10^3u/L Lymphocytes % 5.7 L (24.0-44.0) % Monocytes % 6.2 (0.0-12.0) % Eosinophils % 0.0 (0.00-5.0) % Basophils % 0.6 (0.0-0.4) % Absolute Granulocytes 11.87 H (1.4-6.9) x10^3/uL Basophils # 0.09 (0-0.4) x10^3/uL Sodium (137-145) mmol/L Potassium (3.5-5.1) mmol/L Chloride (98-107) mmol/L Carbon Dioxide (22-30) mmol/L Anion Gap (5-15) MEQ/L BUN (7-17) mg/dL Creatinine (0.52-1.04) mg/dL Estimated GFR ML/MIN Glucose (74-106) mg/dL Lactic Acid 2.5 H (0.4-2.0) Calcium (8.4-10.2) mg/dL Magnesium (1.6-2.3) mg/dL Total Bilirubin (0.2-1.3) mg/dL AST (14-36) U/L ALT (0-35) U/L Alkaline Phosphatase (38-126) U/L Troponin I 0.019 (0.000-0.034) ng/mL NT-Pro-B Natriuret Pep (<300) pg/mL Serum Total Protein (6.3-8.2) g/dL Albumin (3.5-5.0) g/dL Thyroxine (T4) (5.53-10.96) ug/dL TSH 3rd Generation (0.47-4.68) mIU/L Urine Color (Yellow) Urine Appearance (Clear) Urine pH (4.6-8.0) Ur Specific [place] (1.005-1.030) Urine Protein (Negative) Urine Glucose (UA) (Negative) mg/dL Urine Ketones (Negative) Urine Blood (Negative) Urine Nitrite (Negative) Urine Bilirubin (Negative) Urine Urobilinogen (0.2) mg/dL Ur Leukocyte Esterase (Negative) U Hyaline Cast (Auto) (0-2) /LPF Urine Microscopic RBC (0-5) /HPF Urine Microscopic WBC (0-5) /HPF Ur Epithelial Cells (None Seen) /HPF Urine Bacteria (None Seen) /HPF Urine Culture Reflexed (NO) Monoscreen (NEGATIVE) Influenza Type A Ag (NEGATIVE) Influenza Type B Ag (NEGATIVE) RSV (PCR) (NEGATIVE) SARS-CoV-2 (PCR) (NEGATIVE) 09/14/23 09/14/23 09/14/23 Range/Units Unknown Unknown Unknown WBC (4.0-10.5) x10^3/uL RBC (4.1-5.4) x10^6/uL Hgb (12.0-16.0) g/dL Hct (35-47) % MCV (78-100) fL MCH (26-32) pg MCHC (32-36) g/dL RDW (11.5-14.0) % Plt Count (150-450) x10^3/uL MPV (7.5-11.0) fL Gran % (36.0-66.0) % Immature Gran % (Auto) (0.00-0.4) % Nucleat RBC Rel Count (0.00-0.1) % Eos # (Auto) (0-0.5) x10^3/uL Immature Gran # (Auto) (0.00-0.03) x10^3u/L Absolute Lymphs (auto) (1.0-4.6) x10^3/uL Absolute Monos (auto) (0.0-1.3) x10^3/uL Absolute Nucleated RBC (0.00-0.01) x10^3u/L Lymphocytes % (24.0-44.0) % Monocytes % (0.0-12.0) % Eosinophils % (0.00-5.0) % Basophils % (0.0-0.4) % Absolute Granulocytes (1.4-6.9) x10^3/uL Basophils # (0-0.4) x10^3/uL Sodium 133 L (137-145) mmol/L Potassium 3.5 (3.5-5.1) mmol/L Chloride 93 L (98-107) mmol/L Carbon Dioxide 25 (22-30) mmol/L Anion Gap 17.6 H (5-15) MEQ/L BUN 34 H (7-17) mg/dL Creatinine 1.98 H (0.52-1.04) mg/dL Estimated GFR 25.6 ML/MIN Glucose 124 H (74-106) mg/dL Lactic Acid (0.4-2.0) Calcium 9.6 (8.4-10.2) mg/dL Magnesium 1.7 (1.6-2.3) mg/dL Total Bilirubin 1.20 (0.2-1.3) mg/dL AST 50 H (14-36) U/L ALT 29 (0-35) U/L Alkaline Phosphatase 103 (38-126) U/L Troponin I 0.036 H* (0.000-0.034) ng/mL NT-Pro-B Natriuret Pep 2850 (<300) pg/mL Serum Total Protein 7.8 (6.3-8.2) g/dL Albumin 4.0 (3.5-5.0) g/dL Thyroxine (T4) 9.82 (5.53-10.96) ug/dL TSH 3rd Generation 4.470 (0.47-4.68) mIU/L Urine Color (Yellow) Urine Appearance (Clear) Urine pH (4.6-8.0) Ur Specific [place] (1.005-1.030) Urine Protein (Negative) Urine Glucose (UA) (Negative) mg/dL Urine Ketones (Negative) Urine Blood (Negative) Urine Nitrite (Negative) Urine Bilirubin (Negative) Urine Urobilinogen (0.2) mg/dL Ur Leukocyte Esterase (Negative) U Hyaline Cast (Auto) (0-2) /LPF Urine Microscopic RBC (0-5) /HPF Urine Microscopic WBC (0-5) /HPF Ur Epithelial Cells (None Seen) /HPF Urine Bacteria (None Seen) /HPF Urine Culture Reflexed (NO) Monoscreen NEGATIVE (NEGATIVE) Influenza Type A Ag (NEGATIVE) Influenza Type B Ag (NEGATIVE) RSV (PCR) (NEGATIVE) SARS-CoV-2 (PCR) (NEGATIVE) - Radiology Impressions Radiology Exams & Impressions: Radiology Procedures Category Date Time Status CHEST 1 VIEW (PORTABLE) Stat Exams 09/14/23 14:30 Completed Assessment/Plan (1) Pneumonia Current Visit: Yes Status: Acute Assessment & Plan: - As seen on chest XR - rocephin and azithromycin - Decadron 6mg po daily - Pt on baseline 2LNC at noc - CBC 14 - RT eval and treat - IS - BC x2 pending - duonebs Code(s): J18.9 - PNEUMONIA, UNSPECIFIED ORGANISM (2) COVID-19 virus infection Current Visit: Yes Status: Acute Assessment & Plan: - positive test in ER - 6mg decadron daily PO - Has has sxs for > week Covid meds not needed - Tyelnol for fever - Compazine for nausea - IVF Code(s): U07.1 - COVID-19 (3) UTI (urinary tract infection) Current Visit: Yes Status: Acute Assessment & Plan: - UC pending - rocephin IV Code(s): N39.0 - URINARY TRACT INFECTION, SITE NOT SPECIFIED (4) CHRISTOPHE (acute kidney injury) Current Visit: Yes Status: Acute Assessment & Plan: - Creat 1.98, BUN 34, GRF 25.6 - IVF - 2:2 dehydration Code(s): N17.9 - ACUTE KIDNEY FAILURE, UNSPECIFIED (5) Elevated lactic acid level Current Visit: Yes Status: Acute Assessment & Plan: - Lactic on admission2.5- NS @ 250ml/hr started in ER - repeat lactic acid 2.5- 500ml/hr NS bolus ordered - will recheck in 3 hours Code(s): R79.89 - OTHER SPECIFIED ABNORMAL FINDINGS OF BLOOD CHEMISTRY (6) Elevated AST (SGOT) Current Visit: Yes Status: Acute Assessment & Plan: - AST 50- most likely r/t infection Code(s): R74.01 - ELEVATION OF LEVELS OF LIVER TRANSAMINASE LEVELS (7) Smoker Current Visit: Yes Status: Acute Assessment & Plan: - Smokes 1ppd - advised cessation - nicotine patch- pt refuses Code(s): F17.200 - NICOTINE DEPENDENCE, UNSPECIFIED, UNCOMPLICATED (8) Weakness Current Visit: Yes Status: Acute Assessment & Plan: - PT/OT Code(s): R53.1 - WEAKNESS (9) COPD (chronic obstructive pulmonary disease) Current Visit: Yes Status: Chronic Assessment & Plan: - Chronic on 2lNC - baseline room air - RT eval and treat (10) Elevated brain natriuretic peptide (BNP) level Current Visit: Yes Status: Acute Assessment & Plan: - lasix x1 gave in ER - BNP 2850 - Pt has no edema - No hx of CHF - no increased SOB Code(s): R79.89 - OTHER SPECIFIED ABNORMAL FINDINGS OF BLOOD CHEMISTRY (11) Elevated troponin Current Visit: Yes Status: Acute Assessment & Plan: - 1st trop 0.036, 2nd trop normal - denies CP Code(s): R79.89 - OTHER SPECIFIED ABNORMAL FINDINGS OF BLOOD CHEMISTRY (12) Mild dehydration Current Visit: Yes Status: Acute Assessment & Plan: - IVF started - anion gap 17.6 - Compazine for nausea Code(s): E86.0 - DEHYDRATION (13) Hyponatremia Current Visit: No Status: Acute Assessment & Plan: - Mild 133- trend Code(s): E87.1 - HYPO-OSMOLALITY AND HYPONATREMIA (14) GERD (gastroesophageal reflux disease) Current Visit: Yes Status: Acute Assessment & Plan: - continue omeprazole Code(s): K21.9 - GASTRO-ESOPHAGEAL REFLUX DISEASE WITHOUT ESOPHAGITIS (15) HTN (hypertension) Current Visit: Yes Status: Acute Assessment & Plan: - BP stable - hold chlorthalidone and losartan- d/t CHRISTOPHE Code(s): I10 - ESSENTIAL (PRIMARY) HYPERTENSION (16) Hyperlipidemia Current Visit: Yes Status: Acute Assessment & Plan: - continue statin Code(s): E78.5 - HYPERLIPIDEMIA, UNSPECIFIED (17) Hypothyroidism Current Visit: Yes Status: Acute Assessment & Plan: - continue synthroid Code(s): E03.9 - HYPOTHYROIDISM, UNSPECIFIED (18) Depression Current Visit: Yes Status: Acute Assessment & Plan: -Continue prozac VTE: Lovenox PPI: Omeprazole D/C plan: 1-2 days Next of kin: Jackie Garcia [phone] Code status: Code(s): F32.A - DEPRESSION, UNSPECIFIED <KORAISHY,GAVIN - Last Filed: 09/14/23 19:44> History of Present Illness - Chief Complaint History of Present Illness: is a 77 year old female. - Physical Exam Vital Signs: Vital Signs - 24 hr Temp Pulse Resp BP BP Pulse Ox 09/14/23 18:44 65 15 96 09/14/23 18:33 97.2 F 60 12 127/60 92 L 09/14/23 16:30 61 114/39 96 09/14/23 16:17 106/42 96 09/14/23 15:30 131/45 96 09/14/23 15:01 111/47 97 09/14/23 14:31 120/54 94 L 09/14/23 14:01 57 L 18 106/40 97 09/14/23 13:30 56 L 14 105/47 97 09/14/23 13:00 58 L 17 109/50 96 09/14/23 12:13 90 L 09/14/23 12:08 58 L 17 103/50 98 09/14/23 12:07 61 16 97 09/14/23 12:02 62 17 91 L 09/14/23 11:30 64 19 118/46 90 L 09/14/23 11:18 97.6 F 62 20 118/46 92 L Results - Labs Lab/Micro Results: Lab Results-Last 24 Hours 09/14/23 09/14/23 09/14/23 Range/Units 12:13 12:15 12:40 WBC (4.0-10.5) x10^3/uL RBC (4.1-5.4) x10^6/uL Hgb (12.0-16.0) g/dL Hct (35-47) % MCV (78-100) fL MCH (26-32) pg MCHC (32-36) g/dL RDW (11.5-14.0) % Plt Count (150-450) x10^3/uL MPV (7.5-11.0) fL Gran % (36.0-66.0) % Immature Gran % (Auto) (0.00-0.4) % Nucleat RBC Rel Count (0.00-0.1) % Eos # (Auto) (0-0.5) x10^3/uL Immature Gran # (Auto) (0.00-0.03) x10^3u/L Absolute Lymphs (auto) (1.0-4.6) x10^3/uL Absolute Monos (auto) (0.0-1.3) x10^3/uL Absolute Nucleated RBC (0.00-0.01) x10^3u/L Lymphocytes % (24.0-44.0) % Monocytes % (0.0-12.0) % Eosinophils % (0.00-5.0) % Basophils % (0.0-0.4) % Absolute Granulocytes (1.4-6.9) x10^3/uL Basophils # (0-0.4) x10^3/uL Sodium (137-145) mmol/L Potassium (3.5-5.1) mmol/L Chloride (98-107) mmol/L Carbon Dioxide (22-30) mmol/L Anion Gap (5-15) MEQ/L BUN (7-17) mg/dL Creatinine (0.52-1.04) mg/dL Estimated GFR ML/MIN Glucose (74-106) mg/dL Lactic Acid 2.5 H (0.4-2.0) Calcium (8.4-10.2) mg/dL Magnesium (1.6-2.3) mg/dL Total Bilirubin (0.2-1.3) mg/dL AST (14-36) U/L ALT (0-35) U/L Alkaline Phosphatase (38-126) U/L Troponin I (0.000-0.034) ng/mL NT-Pro-B Natriuret Pep (<300) pg/mL Serum Total Protein (6.3-8.2) g/dL Albumin (3.5-5.0) g/dL Thyroxine (T4) (5.53-10.96) ug/dL TSH 3rd Generation (0.47-4.68) mIU/L Urine Color Dark Yellow A (Yellow) Urine Appearance Turbid A (Clear) Urine pH 5.0 (4.6-8.0) Ur Specific [place] 1.015 (1.005-1.030) Urine Protein 30 (Negative) Urine Glucose (UA) Negative (Negative) mg/dL Urine Ketones Trace A (Negative) Urine Blood Negative (Negative) Urine Nitrite Negative (Negative) Urine Bilirubin Moderate A (Negative) Urine Urobilinogen 1.0 A (0.2) mg/dL Ur Leukocyte Esterase Trace A (Negative) U Hyaline Cast (Auto) NONE SEEN (0-2) /LPF Urine Microscopic RBC 3-5 (0-5) /HPF Urine Microscopic WBC 6-10 A (0-5) /HPF Ur Epithelial Cells Many A (None Seen) /HPF Urine Bacteria Many A (None Seen) /HPF Urine Culture Reflexed YES (NO) Monoscreen (NEGATIVE) Influenza Type A Ag NEGATIVE (NEGATIVE) Influenza Type B Ag NEGATIVE (NEGATIVE) RSV (PCR) NEGATIVE (NEGATIVE) SARS-CoV-2 (PCR) POSITIVE A (NEGATIVE) 09/14/23 09/14/23 09/14/23 Range/Units 14:23 16:15 Unknown WBC 14.0 H (4.0-10.5) x10^3/uL RBC 6.03 H (4.1-5.4) x10^6/uL Hgb 15.8 (12.0-16.0) g/dL Hct 50.0 H (35-47) % MCV 82.9 (78-100) fL MCH 26.2 (26-32) pg MCHC 31.6 L (32-36) g/dL RDW 18.6 H (11.5-14.0) % Plt Count 393 (150-450) x10^3/uL MPV 11.9 H (7.5-11.0) fL Gran % 85.1 H (36.0-66.0) % Immature Gran % (Auto) 2.4 H (0.00-0.4) % Nucleat RBC Rel Count 0.0 (0.00-0.1) % Eos # (Auto) 0 (0-0.5) x10^3/uL Immature Gran # (Auto) 0.34 H (0.00-0.03) x10^3u/L Absolute Lymphs (auto) 0.80 L (1.0-4.6) x10^3/uL Absolute Monos (auto) 0.87 (0.0-1.3) x10^3/uL Absolute Nucleated RBC 0.00 (0.00-0.01) x10^3u/L Lymphocytes % 5.7 L (24.0-44.0) % Monocytes % 6.2 (0.0-12.0) % Eosinophils % 0.0 (0.00-5.0) % Basophils % 0.6 (0.0-0.4) % Absolute Granulocytes 11.87 H (1.4-6.9) x10^3/uL Basophils # 0.09 (0-0.4) x10^3/uL Sodium (137-145) mmol/L Potassium (3.5-5.1) mmol/L Chloride (98-107) mmol/L Carbon Dioxide (22-30) mmol/L Anion Gap (5-15) MEQ/L BUN (7-17) mg/dL Creatinine (0.52-1.04) mg/dL Estimated GFR ML/MIN Glucose (74-106) mg/dL Lactic Acid 2.5 H (0.4-2.0) Calcium (8.4-10.2) mg/dL Magnesium (1.6-2.3) mg/dL Total Bilirubin (0.2-1.3) mg/dL AST (14-36) U/L ALT (0-35) U/L Alkaline Phosphatase (38-126) U/L Troponin I 0.019 (0.000-0.034) ng/mL NT-Pro-B Natriuret Pep (<300) pg/mL Serum Total Protein (6.3-8.2) g/dL Albumin (3.5-5.0) g/dL Thyroxine (T4) (5.53-10.96) ug/dL TSH 3rd Generation (0.47-4.68) mIU/L Urine Color (Yellow) Urine Appearance (Clear) Urine pH (4.6-8.0) Ur Specific [place] (1.005-1.030) Urine Protein (Negative) Urine Glucose (UA) (Negative) mg/dL Urine Ketones (Negative) Urine Blood (Negative) Urine Nitrite (Negative) Urine Bilirubin (Negative) Urine Urobilinogen (0.2) mg/dL Ur Leukocyte Esterase (Negative) U Hyaline Cast (Auto) (0-2) /LPF Urine Microscopic RBC (0-5) /HPF Urine Microscopic WBC (0-5) /HPF Ur Epithelial Cells (None Seen) /HPF Urine Bacteria (None Seen) /HPF Urine Culture Reflexed (NO) Monoscreen (NEGATIVE) Influenza Type A Ag (NEGATIVE) Influenza Type B Ag (NEGATIVE) RSV (PCR) (NEGATIVE) SARS-CoV-2 (PCR) (NEGATIVE) 09/14/23 09/14/23 09/14/23 Range/Units Unknown Unknown Unknown WBC (4.0-10.5) x10^3/uL RBC (4.1-5.4) x10^6/uL Hgb (12.0-16.0) g/dL Hct (35-47) % MCV (78-100) fL MCH (26-32) pg MCHC (32-36) g/dL RDW (11.5-14.0) % Plt Count (150-450) x10^3/uL MPV (7.5-11.0) fL Gran % (36.0-66.0) % Immature Gran % (Auto) (0.00-0.4) % Nucleat RBC Rel Count (0.00-0.1) % Eos # (Auto) (0-0.5) x10^3/uL Immature Gran # (Auto) (0.00-0.03) x10^3u/L Absolute Lymphs (auto) (1.0-4.6) x10^3/uL Absolute Monos (auto) (0.0-1.3) x10^3/uL Absolute Nucleated RBC (0.00-0.01) x10^3u/L Lymphocytes % (24.0-44.0) % Monocytes % (0.0-12.0) % Eosinophils % (0.00-5.0) % Basophils % (0.0-0.4) % Absolute Granulocytes (1.4-6.9) x10^3/uL Basophils # (0-0.4) x10^3/uL Sodium 133 L (137-145) mmol/L Potassium 3.5 (3.5-5.1) mmol/L Chloride 93 L (98-107) mmol/L Carbon Dioxide 25 (22-30) mmol/L Anion Gap 17.6 H (5-15) MEQ/L BUN 34 H (7-17) mg/dL Creatinine 1.98 H (0.52-1.04) mg/dL Estimated GFR 25.6 ML/MIN Glucose 124 H (74-106) mg/dL Lactic Acid (0.4-2.0) Calcium 9.6 (8.4-10.2) mg/dL Magnesium 1.7 (1.6-2.3) mg/dL Total Bilirubin 1.20 (0.2-1.3) mg/dL AST 50 H (14-36) U/L ALT 29 (0-35) U/L Alkaline Phosphatase 103 (38-126) U/L Troponin I 0.036 H* (0.000-0.034) ng/mL NT-Pro-B Natriuret Pep 2850 (<300) pg/mL Serum Total Protein 7.8 (6.3-8.2) g/dL Albumin 4.0 (3.5-5.0) g/dL Thyroxine (T4) 9.82 (5.53-10.96) ug/dL TSH 3rd Generation 4.470 (0.47-4.68) mIU/L Urine Color (Yellow) Urine Appearance (Clear) Urine pH (4.6-8.0) Ur Specific [place] (1.005-1.030) Urine Protein (Negative) Urine Glucose (UA) (Negative) mg/dL Urine Ketones (Negative) Urine Blood (Negative) Urine Nitrite (Negative) Urine Bilirubin (Negative) Urine Urobilinogen (0.2) mg/dL Ur Leukocyte Esterase (Negative) U Hyaline Cast (Auto) (0-2) /LPF Urine Microscopic RBC (0-5) /HPF Urine Microscopic WBC (0-5) /HPF Ur Epithelial Cells (None Seen) /HPF Urine Bacteria (None Seen) /HPF Urine Culture Reflexed (NO) Monoscreen NEGATIVE (NEGATIVE) Influenza Type A Ag (NEGATIVE) Influenza Type B Ag (NEGATIVE) RSV (PCR) (NEGATIVE) SARS-CoV-2 (PCR) (NEGATIVE) - Radiology Impressions Radiology Exams & Impressions: Radiology Procedures Category Date Time Status CHEST 1 VIEW (PORTABLE) Stat Exams 09/14/23 14:30 Completed - Other Procedures and Tests Respiratory Therapy 09/14/23 17:23 EKG REPEAT IN AM Oxygen Nasal Cannula 2 lpm 09/14/23 18:25 Incentive Spirometry TID 09/14/23 18:44 Respiratory Therapy Assessment DAILY MOY Encounter - MOY Encounter Attestation MOY Encounter Attestation: "IhavepersonallyseenandexamineZAIRA Bolivar andhavediscussed pertinent aspects of their care with Gladis Staton-Hesterajose agree with the history, physical exam (any modifications based on my personal exam will be noted below), assessment, and plan as outlined in original note. Please see immediately below for my summary of findings and additional assessment and plan along with any meaningful corrections/explanations to the Subjective/Objective portions of the MOY note will be noted." My portion of the encounter took place via telemedicine. -Patient is an active smoker, now presenting with hypoxia in the context of COVID infection. Add dexamethasone. Continue oxygen support. She is vaccinated and out of window for most other treatments. Antibiotics started due to concern for pneumonia on CXR and elevated WBC. Advised strongly regarding smoking cessation. Though she has an elevated BNP, she is not clinically in heart failure (no peripheral or pulm edema). Agree with IVF since she also has CHRISTOPHE.
[2023-09-14] MEDS ORDERED: Sodium Chloride 0.9% 500 ML 500 ML IV ONE (17:20)
[2023-09-14] MEDS ORDERED: Zofran 4 MG/2 ML VIAL IV PRN (17:23)
[2023-09-14] MEDS ORDERED: TYLENOL 325 MG PO PRN (17:23)
[2023-09-14] MEDS ORDERED: Nicoderm CQ 21 MG TOP SCH (17:45)
[2023-09-14] MEDS ORDERED: Compazine 5 MG PO PRN (18:18)
[2023-09-14] MEDS: TYLENOL 325 MG PO PRN (18:19)
[2023-09-14] MEDS: DUONEB 0.5-3 MG/3 ml Neb IH SCH (20:26)
[2023-09-14 21:30] LABS: ALBUMIN 3.2 g/dL (3.5-5.0); ANION GAP 11.9 MEQ/L (5-15); BILIRUBIN,TOTAL 0.8 mg/dL (0.2-1.3); Calcium 8.8 mg/dL (8.4-10.2); Creatinine 1 2.14 mg/dL (0.52-1.04); EST GLOMERULAR FILTRATION RATE 23.3 ML/MIN; Total Protein 6.3 g/dL (6.3-8.2)
[2023-09-14 21:31] LABS: Potassium 3.1 mmol/L (3.5-5.1)
[2023-09-15 05:45] LABS: Absolute Neutrophil Ct (ANC) 7.68 x10^3/uL (1.4-6.9); BASOPHIL % 0.7 % (0.0-0.4); Basophil (Absolute #) 0.07 x10^3/uL (0-0.4); Eosinophil % 0.5 % (0.00-5.0); Eosinophil (Absolute #) 0.05 x10^3/uL (0-0.5); Hematocrit 44.2 % (35-47); Hemoglobin 14.2 g/dL (12.0-16.0); IMMATURE GRAN % 1.1 % (0.00-0.4); Lymphocyte (Absolute #) 0.55 x10^3/uL (1.0-4.6); Lymphocytes % 5.9 % (24.0-44.0); Mean Cell Volume 82.2 fL (78-100); Mean Corpuscular Hemoglobin 26.4 pg (26-32); Mean Corpuscular Hgb Concent. 32.1 g/dL (32-36); Mean Platelet Volume 12.4 fL (7.5-11.0); Monocyte (Absolute #) 0.95 x10^3/uL (0.0-1.3); Monocytes % 10.1 % (0.0-12.0); Neutrophil % 81.7 % (36.0-66.0); Platelet Count 324 x10^3/uL (150-450); Red Blood Count 5.38 x10^6/uL (4.1-5.4); Red Cell Distribution Width 18.5 % (11.5-14.0); White Blood Count 9.4 x10^3/uL (4.0-10.5)
[2023-09-15 06:19] LABS: ALBUMIN 3.3 g/dL (3.5-5.0); ANION GAP 12.6 MEQ/L (5-15); BILIRUBIN,TOTAL 0.9 mg/dL (0.2-1.3); Calcium 8.7 mg/dL (8.4-10.2); Creatinine 1 1.91 mg/dL (0.52-1.04); EST GLOMERULAR FILTRATION RATE 26.7 ML/MIN; Total Protein 6.6 g/dL (6.3-8.2)
[2023-09-15] MEDS ORDERED: DUONEB 0.5-3 MG/3 ml Neb IH ONE (07:04)
[2023-09-15] MEDS ORDERED: Klor Con PO ONE (07:25)
[2023-09-15] MEDS ORDERED: ENOXAPARIN SODIUM SQ SCH ×3 (07:30→10:00)
[2023-09-15] MEDS: DUONEB 0.5-3 MG/3 ml Neb IH SCH ×4 (07:45→19:32)
[2023-09-15] MEDS ORDERED: Decadron 4 MG PO SCH (10:00)
[2023-09-15] MEDS ORDERED: Nicoderm CQ 21 MG TOP SCH (10:00)
[2023-09-15] MEDS ORDERED: Zithromax 500 MG/ 250 ML NaCl Premix 500 MG/250 ML IVPB IV SCH (10:00)
[2023-09-15] MEDS ORDERED: ROCEPHIN 1 Gm-D5w 50 ml Bag** 1 G/50 ML IVPB IV SCH ×2 (10:00)
[2023-09-15] MEDS: TYLENOL 325 MG PO PRN (10:24)
--- NOTE | 2023-09-15 11:48 | PCM.NOTE ---
Date and Time: 09/15/23 1140 Subjective Assessment: 09/14/23 is a 77 year old female with a PMHX of depression, COPD, hyperlipidemia, hypertension, hypothyroidism, arthritis, osteoporosis, chronic anemia and gastroesophageal reflux disease. She is a daily smoker. She was brought into the emergency room by family for 2 weeks of worsening weakness, decreased appetite and unexplained and unintentional weight loss of 10 pounds over the last 1 to 2 weeks. She was positive for COVID in the ER she has had sxs for greater than a week now. UA shows UTI and treated with rocephin. IV fluids started for dehydration and CHRISTOPHE. She was also given lasix as her BNP was 2850. She has no edema or hx of CHF. She is on baseline 2LNC at HS. Lactic acid elevated and 500ml fluid bolus ordered, will recheck repeat LA in 3 hours. Chest XR shows pneumonia- will start steroids and azithromycin. She denies CP, SOB, Abd. pain, N/V/D. 09/15/23 Pt sitting up in a chair today. She is no longer requiring oxygen. She explains she feels much better today. D-Dimer was elevated at 9.31. She is unable to have CT with PE protocol at this time d/t CHRISTOPHE. She is unable to have a VQ scan until next . She has no hx of CKD so when her CHRISTOPHE improves will order a CT with PE protocol. Changed lovenox to heparin d/t CHRISTOPHE, and elevated D-dimer. Na+ 128, and continued CHRISTOPHE- continue IVF. She did have 3 loose stools last night. K+ replaced today. Lactic acid is WNL today. She denies CP, SOB, abd pain, N/V, edema. <GLADIS RUBALCAVA - Last Filed: 09/15/23 11:40> Date and Time: 09/15/232044 <GAVIN PA - Last Filed: 09/15/23 20:46> - Review of Systems Constitutional: No Fever, No Chills Eyes: No Symptoms Ears, Nose, & Throat: No Symptoms Respiratory: No Cough, No Short Of Breath Cardiac: No Chest Pain, No Edema, No Syncope Abdominal/Gastrointestinal: No Abdominal Pain, No Nausea, No Vomiting, No Diarrhea Genitourinary Symptoms: No Dysuria Musculoskeletal: No Back Pain, No Neck Pain Skin: No Rash Neurological: No Dizziness, No Focal Weakness, No Sensory Changes Psychological: No Symptoms Endocrine: No Symptoms Hematologic/Lymphatic: No Symptoms Immunological/Allergic: No Symptoms <GLADIS RUBALCAVA - Last Filed: 09/15/23 11:40> Objective Exam General Appearance: no apparent distress, alert Neurologic Exam: alert, oriented x 3, cooperative, normal mood/affect, nml cerebellar function, sensation nml, No motor deficits Skin Exam: normal color, warm, dry Eye Exam: PERRL, EOMI, eyes nml inspection Ears, Nose, Throat Exam: normal ENT inspection, pharynx normal, moist mucous membranes Neck Exam: normal inspection, non-tender, supple, full range of motion Respiratory Exam: normal breath sounds, lungs clear, diminished breath sounds (BLLL), No respiratory distress Cardiovascular Exam: regular rate/rhythm, normal heart sounds Gastrointestinal/Abdomen Exam: soft, No tenderness, No mass Extremity Exam: normal inspection, normal range of motion Back Exam: normal inspection, normal range of motion, No CVA tenderness, No vertebral tenderness Pelvic Exam: deferred Rectal Exam: deferred <GLADIS RUBALCAVA - Last Filed: 09/15/23 11:40> OBJECTIVE DATA Vital Signs: Vital Signs - 24 hr Temp Pulse Resp BP BP Pulse Ox 09/15/23 11:17 76 18 93 L 09/15/23 08:00 97.8 F 81 20 127/60 09/15/23 07:51 72 18 93 L 09/15/23 03:59 97.8 F 78 17 132/60 96 09/14/23 23:47 97.9 F 70 19 88/44 96 09/14/23 20:26 68 16 95 09/14/23 19:51 97.2 F 65 15 127/60 96 09/14/23 18:44 65 15 96 09/14/23 18:33 97.2 F 60 12 127/60 92 L 09/14/23 16:30 61 114/39 96 09/14/23 16:17 106/42 96 09/14/23 15:30 131/45 96 09/14/23 15:01 111/47 97 09/14/23 14:31 120/54 94 L 09/14/23 14:01 57 L 18 106/40 97 09/14/23 13:30 56 L 14 105/47 97 09/14/23 13:00 58 L 17 109/50 96 09/14/23 12:13 90 L 09/14/23 12:08 58 L 17 103/50 98 09/14/23 12:07 61 16 97 09/14/23 12:02 62 17 91 L Pain Assessment - Last Documented Pain Intensity 6 Pain Scale Used 0-10 Pain Scale Intake and Output: Intake & Output 09/12/23 09/13/23 09/14/23 09/15/23 11:59 11:59 11:59 11:59 Intake Total 1320 Output Total 605 Balance 715 Weight 93.7 kg 89.5 kg Lab Results: Lab Results-Last 24 Hours 09/14/23 09/14/23 09/14/23 Range/Units 12:13 12:15 12:40 WBC (4.0-10.5) x10^3/uL RBC (4.1-5.4) x10^6/uL Hgb (12.0-16.0) g/dL Hct (35-47) % MCV (78-100) fL MCH (26-32) pg MCHC (32-36) g/dL RDW (11.5-14.0) % Plt Count (150-450) x10^3/uL MPV (7.5-11.0) fL Gran % (36.0-66.0) % Immature Gran % (Auto) (0.00-0.4) % Nucleat RBC Rel Count (0.00-0.1) % Eos # (Auto) (0-0.5) x10^3/uL Immature Gran # (Auto) (0.00-0.03) x10^3u/L Absolute Lymphs (auto) (1.0-4.6) x10^3/uL Absolute Monos (auto) (0.0-1.3) x10^3/uL Absolute Nucleated RBC (0.00-0.01) x10^3u/L Lymphocytes % (24.0-44.0) % Monocytes % (0.0-12.0) % Eosinophils % (0.00-5.0) % Basophils % (0.0-0.4) % Absolute Granulocytes (1.4-6.9) x10^3/uL Basophils # (0-0.4) x10^3/uL D-Dimer (0.0-0.50) mg/L Sodium (137-145) mmol/L Potassium (3.5-5.1) mmol/L Chloride (98-107) mmol/L Carbon Dioxide (22-30) mmol/L Anion Gap (5-15) MEQ/L BUN (7-17) mg/dL Creatinine (0.52-1.04) mg/dL Estimated GFR ML/MIN Glucose (74-106) mg/dL Lactic Acid 2.5 H (0.4-2.0) Calcium (8.4-10.2) mg/dL Magnesium (1.6-2.3) mg/dL Total Bilirubin (0.2-1.3) mg/dL AST (14-36) U/L ALT (0-35) U/L Alkaline Phosphatase (38-126) U/L Troponin I (0.000-0.034) ng/mL NT-Pro-B Natriuret Pep (<300) pg/mL Serum Total Protein (6.3-8.2) g/dL Albumin (3.5-5.0) g/dL Thyroxine (T4) (5.53-10.96) ug/dL TSH 3rd Generation (0.47-4.68) mIU/L Urine Color Dark Yellow A (Yellow) Urine Appearance Turbid A (Clear) Urine pH 5.0 (4.6-8.0) Ur Specific [place] 1.015 (1.005-1.030) Urine Protein 30 (Negative) Urine Glucose (UA) Negative (Negative) mg/dL Urine Ketones Trace A (Negative) Urine Blood Negative (Negative) Urine Nitrite Negative (Negative) Urine Bilirubin Moderate A (Negative) Urine Urobilinogen 1.0 A (0.2) mg/dL Ur Leukocyte Esterase Trace A (Negative) U Hyaline Cast (Auto) NONE SEEN (0-2) /LPF Urine Microscopic RBC 3-5 (0-5) /HPF Urine Microscopic WBC 6-10 A (0-5) /HPF Ur Epithelial Cells Many A (None Seen) /HPF Urine Bacteria Many A (None Seen) /HPF Urine Culture Reflexed YES (NO) Monoscreen (NEGATIVE) Influenza Type A Ag NEGATIVE (NEGATIVE) Influenza Type B Ag NEGATIVE (NEGATIVE) RSV (PCR) NEGATIVE (NEGATIVE) SARS-CoV-2 (PCR) POSITIVE A (NEGATIVE) 09/14/23 09/14/23 09/14/23 Range/Units 14:23 16:15 21:10 WBC (4.0-10.5) x10^3/uL RBC (4.1-5.4) x10^6/uL Hgb (12.0-16.0) g/dL Hct (35-47) % MCV (78-100) fL MCH (26-32) pg MCHC (32-36) g/dL RDW (11.5-14.0) % Plt Count (150-450) x10^3/uL MPV (7.5-11.0) fL Gran % (36.0-66.0) % Immature Gran % (Auto) (0.00-0.4) % Nucleat RBC Rel Count (0.00-0.1) % Eos # (Auto) (0-0.5) x10^3/uL Immature Gran # (Auto) (0.00-0.03) x10^3u/L Absolute Lymphs (auto) (1.0-4.6) x10^3/uL Absolute Monos (auto) (0.0-1.3) x10^3/uL Absolute Nucleated RBC (0.00-0.01) x10^3u/L Lymphocytes % (24.0-44.0) % Monocytes % (0.0-12.0) % Eosinophils % (0.00-5.0) % Basophils % (0.0-0.4) % Absolute Granulocytes (1.4-6.9) x10^3/uL Basophils # (0-0.4) x10^3/uL D-Dimer (0.0-0.50) mg/L Sodium (137-145) mmol/L Potassium (3.5-5.1) mmol/L Chloride (98-107) mmol/L Carbon Dioxide (22-30) mmol/L Anion Gap (5-15) MEQ/L BUN (7-17) mg/dL Creatinine (0.52-1.04) mg/dL Estimated GFR ML/MIN Glucose (74-106) mg/dL Lactic Acid 2.5 H (0.4-2.0) Calcium (8.4-10.2) mg/dL Magnesium (1.6-2.3) mg/dL Total Bilirubin (0.2-1.3) mg/dL AST (14-36) U/L ALT (0-35) U/L Alkaline Phosphatase (38-126) U/L Troponin I 0.019 0.016 (0.000-0.034) ng/mL NT-Pro-B Natriuret Pep (<300) pg/mL Serum Total Protein (6.3-8.2) g/dL Albumin (3.5-5.0) g/dL Thyroxine (T4) (5.53-10.96) ug/dL TSH 3rd Generation (0.47-4.68) mIU/L Urine Color (Yellow) Urine Appearance (Clear) Urine pH (4.6-8.0) Ur Specific [place] (1.005-1.030) Urine Protein (Negative) Urine Glucose (UA) (Negative) mg/dL Urine Ketones (Negative) Urine Blood (Negative) Urine Nitrite (Negative) Urine Bilirubin (Negative) Urine Urobilinogen (0.2) mg/dL Ur Leukocyte Esterase (Negative) U Hyaline Cast (Auto) (0-2) /LPF Urine Microscopic RBC (0-5) /HPF Urine Microscopic WBC (0-5) /HPF Ur Epithelial Cells (None Seen) /HPF Urine Bacteria (None Seen) /HPF Urine Culture Reflexed (NO) Monoscreen (NEGATIVE) Influenza Type A Ag (NEGATIVE) Influenza Type B Ag (NEGATIVE) RSV (PCR) (NEGATIVE) SARS-CoV-2 (PCR) (NEGATIVE) 09/14/23 09/14/23 09/14/23 Range/Units 21:10 21:10 21:45 WBC (4.0-10.5) x10^3/uL RBC (4.1-5.4) x10^6/uL Hgb (12.0-16.0) g/dL Hct (35-47) % MCV (78-100) fL MCH (26-32) pg MCHC (32-36) g/dL RDW (11.5-14.0) % Plt Count (150-450) x10^3/uL MPV (7.5-11.0) fL Gran % (36.0-66.0) % Immature Gran % (Auto) (0.00-0.4) % Nucleat RBC Rel Count (0.00-0.1) % Eos # (Auto) (0-0.5) x10^3/uL Immature Gran # (Auto) (0.00-0.03) x10^3u/L Absolute Lymphs (auto) (1.0-4.6) x10^3/uL Absolute Monos (auto) (0.0-1.3) x10^3/uL Absolute Nucleated RBC (0.00-0.01) x10^3u/L Lymphocytes % (24.0-44.0) % Monocytes % (0.0-12.0) % Eosinophils % (0.00-5.0) % Basophils % (0.0-0.4) % Absolute Granulocytes (1.4-6.9) x10^3/uL Basophils # (0-0.4) x10^3/uL D-Dimer 9.31 H* (0.0-0.50) mg/L Sodium 131 L (137-145) mmol/L Potassium 3.1 L (3.5-5.1) mmol/L Chloride 97 L (98-107) mmol/L Carbon Dioxide 25 (22-30) mmol/L Anion Gap 11.9 (5-15) MEQ/L BUN 40 H (7-17) mg/dL Creatinine 2.14 H (0.52-1.04) mg/dL Estimated GFR 23.3 ML/MIN Glucose 118 H (74-106) mg/dL Lactic Acid 1.8 (0.4-2.0) Calcium 8.8 (8.4-10.2) mg/dL Magnesium (1.6-2.3) mg/dL Total Bilirubin 0.80 (0.2-1.3) mg/dL AST 40 H (14-36) U/L ALT 25 (0-35) U/L Alkaline Phosphatase 78 (38-126) U/L Troponin I (0.000-0.034) ng/mL NT-Pro-B Natriuret Pep (<300) pg/mL Serum Total Protein 6.3 (6.3-8.2) g/dL Albumin 3.2 L (3.5-5.0) g/dL Thyroxine (T4) (5.53-10.96) ug/dL TSH 3rd Generation (0.47-4.68) mIU/L Urine Color (Yellow) Urine Appearance (Clear) Urine pH (4.6-8.0) Ur Specific [place] (1.005-1.030) Urine Protein (Negative) Urine Glucose (UA) (Negative) mg/dL Urine Ketones (Negative) Urine Blood (Negative) Urine Nitrite (Negative) Urine Bilirubin (Negative) Urine Urobilinogen (0.2) mg/dL Ur Leukocyte Esterase (Negative) U Hyaline Cast (Auto) (0-2) /LPF Urine Microscopic RBC (0-5) /HPF Urine Microscopic WBC (0-5) /HPF Ur Epithelial Cells (None Seen) /HPF Urine Bacteria (None Seen) /HPF Urine Culture Reflexed (NO) Monoscreen (NEGATIVE) Influenza Type A Ag (NEGATIVE) Influenza Type B Ag (NEGATIVE) RSV (PCR) (NEGATIVE) SARS-CoV-2 (PCR) (NEGATIVE) 09/14/23 09/14/23 09/14/23 Range/Units Unknown Unknown Unknown WBC 14.0 H (4.0-10.5) x10^3/uL RBC 6.03 H (4.1-5.4) x10^6/uL Hgb 15.8 (12.0-16.0) g/dL Hct 50.0 H (35-47) % MCV 82.9 (78-100) fL MCH 26.2 (26-32) pg MCHC 31.6 L (32-36) g/dL RDW 18.6 H (11.5-14.0) % Plt Count 393 (150-450) x10^3/uL MPV 11.9 H (7.5-11.0) fL Gran % 85.1 H (36.0-66.0) % Immature Gran % (Auto) 2.4 H (0.00-0.4) % Nucleat RBC Rel Count 0.0 (0.00-0.1) % Eos # (Auto) 0 (0-0.5) x10^3/uL Immature Gran # (Auto) 0.34 H (0.00-0.03) x10^3u/L Absolute Lymphs (auto) 0.80 L (1.0-4.6) x10^3/uL Absolute Monos (auto) 0.87 (0.0-1.3) x10^3/uL Absolute Nucleated RBC 0.00 (0.00-0.01) x10^3u/L Lymphocytes % 5.7 L (24.0-44.0) % Monocytes % 6.2 (0.0-12.0) % Eosinophils % 0.0 (0.00-5.0) % Basophils % 0.6 (0.0-0.4) % Absolute Granulocytes 11.87 H (1.4-6.9) x10^3/uL Basophils # 0.09 (0-0.4) x10^3/uL D-Dimer (0.0-0.50) mg/L Sodium 133 L (137-145) mmol/L Potassium 3.5 (3.5-5.1) mmol/L Chloride 93 L (98-107) mmol/L Carbon Dioxide 25 (22-30) mmol/L Anion Gap 17.6 H (5-15) MEQ/L BUN 34 H (7-17) mg/dL Creatinine 1.98 H (0.52-1.04) mg/dL Estimated GFR 25.6 ML/MIN Glucose 124 H (74-106) mg/dL Lactic Acid (0.4-2.0) Calcium 9.6 (8.4-10.2) mg/dL Magnesium 1.7 (1.6-2.3) mg/dL Total Bilirubin 1.20 (0.2-1.3) mg/dL AST 50 H (14-36) U/L ALT 29 (0-35) U/L Alkaline Phosphatase 103 (38-126) U/L Troponin I 0.036 H* (0.000-0.034) ng/mL NT-Pro-B Natriuret Pep 2850 (<300) pg/mL Serum Total Protein 7.8 (6.3-8.2) g/dL Albumin 4.0 (3.5-5.0) g/dL Thyroxine (T4) 9.82 (5.53-10.96) ug/dL TSH 3rd Generation 4.470 (0.47-4.68) mIU/L Urine Color (Yellow) Urine Appearance (Clear) Urine pH (4.6-8.0) Ur Specific [place] (1.005-1.030) Urine Protein (Negative) Urine Glucose (UA) (Negative) mg/dL Urine Ketones (Negative) Urine Blood (Negative) Urine Nitrite (Negative) Urine Bilirubin (Negative) Urine Urobilinogen (0.2) mg/dL Ur Leukocyte Esterase (Negative) U Hyaline Cast (Auto) (0-2) /LPF Urine Microscopic RBC (0-5) /HPF Urine Microscopic WBC (0-5) /HPF Ur Epithelial Cells (None Seen) /HPF Urine Bacteria (None Seen) /HPF Urine Culture Reflexed (NO) Monoscreen (NEGATIVE) Influenza Type A Ag (NEGATIVE) Influenza Type B Ag (NEGATIVE) RSV (PCR) (NEGATIVE) SARS-CoV-2 (PCR) (NEGATIVE) 09/14/23 09/15/23 09/15/23 Range/Units Unknown 05:20 05:20 WBC 9.4 (4.0-10.5) x10^3/uL RBC 5.38 (4.1-5.4) x10^6/uL Hgb 14.2 (12.0-16.0) g/dL Hct 44.2 (35-47) % MCV 82.2 (78-100) fL MCH 26.4 (26-32) pg MCHC 32.1 (32-36) g/dL RDW 18.5 H (11.5-14.0) % Plt Count 324 (150-450) x10^3/uL MPV 12.4 H (7.5-11.0) fL Gran % 81.7 H (36.0-66.0) % Immature Gran % (Auto) 1.1 H (0.00-0.4) % Nucleat RBC Rel Count 0.0 (0.00-0.1) % Eos # (Auto) 0.05 (0-0.5) x10^3/uL Immature Gran # (Auto) 0.10 H (0.00-0.03) x10^3u/L Absolute Lymphs (auto) 0.55 L (1.0-4.6) x10^3/uL Absolute Monos (auto) 0.95 (0.0-1.3) x10^3/uL Absolute Nucleated RBC 0.00 (0.00-0.01) x10^3u/L Lymphocytes % 5.9 L (24.0-44.0) % Monocytes % 10.1 (0.0-12.0) % Eosinophils % 0.5 (0.00-5.0) % Basophils % 0.7 (0.0-0.4) % Absolute Granulocytes 7.68 H (1.4-6.9) x10^3/uL Basophils # 0.07 (0-0.4) x10^3/uL D-Dimer (0.0-0.50) mg/L Sodium 128 L (137-145) mmol/L Potassium 3.0 L* (3.5-5.1) mmol/L Chloride 97 L (98-107) mmol/L Carbon Dioxide 21 L (22-30) mmol/L Anion Gap 12.6 (5-15) MEQ/L BUN 41 H (7-17) mg/dL Creatinine 1.91 H (0.52-1.04) mg/dL Estimated GFR 26.7 ML/MIN Glucose 120 H (74-106) mg/dL Lactic Acid (0.4-2.0) Calcium 8.7 (8.4-10.2) mg/dL Magnesium (1.6-2.3) mg/dL Total Bilirubin 0.90 (0.2-1.3) mg/dL AST 42 H (14-36) U/L ALT 26 (0-35) U/L Alkaline Phosphatase 90 (38-126) U/L Troponin I (0.000-0.034) ng/mL NT-Pro-B Natriuret Pep 1270 (<300) pg/mL Serum Total Protein 6.6 (6.3-8.2) g/dL Albumin 3.3 L (3.5-5.0) g/dL Thyroxine (T4) (5.53-10.96) ug/dL TSH 3rd Generation (0.47-4.68) mIU/L Urine Color (Yellow) Urine Appearance (Clear) Urine pH (4.6-8.0) Ur Specific [place] (1.005-1.030) Urine Protein (Negative) Urine Glucose (UA) (Negative) mg/dL Urine Ketones (Negative) Urine Blood (Negative) Urine Nitrite (Negative) Urine Bilirubin (Negative) Urine Urobilinogen (0.2) mg/dL Ur Leukocyte Esterase (Negative) U Hyaline Cast (Auto) (0-2) /LPF Urine Microscopic RBC (0-5) /HPF Urine Microscopic WBC (0-5) /HPF Ur Epithelial Cells (None Seen) /HPF Urine Bacteria (None Seen) /HPF Urine Culture Reflexed (NO) Monoscreen NEGATIVE (NEGATIVE) Influenza Type A Ag (NEGATIVE) Influenza Type B Ag (NEGATIVE) RSV (PCR) (NEGATIVE) SARS-CoV-2 (PCR) (NEGATIVE) 09/15/23 Range/Units 06:24 WBC (4.0-10.5) x10^3/uL RBC (4.1-5.4) x10^6/uL Hgb (12.0-16.0) g/dL Hct (35-47) % MCV (78-100) fL MCH (26-32) pg MCHC (32-36) g/dL RDW (11.5-14.0) % Plt Count (150-450) x10^3/uL MPV (7.5-11.0) fL Gran % (36.0-66.0) % Immature Gran % (Auto) (0.00-0.4) % Nucleat RBC Rel Count (0.00-0.1) % Eos # (Auto) (0-0.5) x10^3/uL Immature Gran # (Auto) (0.00-0.03) x10^3u/L Absolute Lymphs (auto) (1.0-4.6) x10^3/uL Absolute Monos (auto) (0.0-1.3) x10^3/uL Absolute Nucleated RBC (0.00-0.01) x10^3u/L Lymphocytes % (24.0-44.0) % Monocytes % (0.0-12.0) % Eosinophils % (0.00-5.0) % Basophils % (0.0-0.4) % Absolute Granulocytes (1.4-6.9) x10^3/uL Basophils # (0-0.4) x10^3/uL D-Dimer (0.0-0.50) mg/L Sodium (137-145) mmol/L Potassium (3.5-5.1) mmol/L Chloride (98-107) mmol/L Carbon Dioxide (22-30) mmol/L Anion Gap (5-15) MEQ/L BUN (7-17) mg/dL Creatinine (0.52-1.04) mg/dL Estimated GFR ML/MIN Glucose (74-106) mg/dL Lactic Acid (0.4-2.0) Calcium (8.4-10.2) mg/dL Magnesium 1.6 (1.6-2.3) mg/dL Total Bilirubin (0.2-1.3) mg/dL AST (14-36) U/L ALT (0-35) U/L Alkaline Phosphatase (38-126) U/L Troponin I (0.000-0.034) ng/mL NT-Pro-B Natriuret Pep (<300) pg/mL Serum Total Protein (6.3-8.2) g/dL Albumin (3.5-5.0) g/dL Thyroxine (T4) (5.53-10.96) ug/dL TSH 3rd Generation (0.47-4.68) mIU/L Urine Color (Yellow) Urine Appearance (Clear) Urine pH (4.6-8.0) Ur Specific [place] (1.005-1.030) Urine Protein (Negative) Urine Glucose (UA) (Negative) mg/dL Urine Ketones (Negative) Urine Blood (Negative) Urine Nitrite (Negative) Urine Bilirubin (Negative) Urine Urobilinogen (0.2) mg/dL Ur Leukocyte Esterase (Negative) U Hyaline Cast (Auto) (0-2) /LPF Urine Microscopic RBC (0-5) /HPF Urine Microscopic WBC (0-5) /HPF Ur Epithelial Cells (None Seen) /HPF Urine Bacteria (None Seen) /HPF Urine Culture Reflexed (NO) Monoscreen (NEGATIVE) Influenza Type A Ag (NEGATIVE) Influenza Type B Ag (NEGATIVE) RSV (PCR) (NEGATIVE) SARS-CoV-2 (PCR) (NEGATIVE) Radiology Exams: Radiology Procedures Category Date Time Status CHEST 1 VIEW (PORTABLE) Stat Exams 09/14/23 14:30 Completed PULMONARY PERF VENTILATION [NUCMED] Urgent Exams 09/15/23 06:54 Ordered Multi-Disciplinary Progress Notes: Multi-Disciplinary Progress Notes 09/15/23 07:37 Pharmacy Note by Ludwig,Seth Lovenox changed to once daily per renal dosing policy. Estimated crcl is 23ml/min based on creat of 1.9. Initialized on 09/15/23 07:37 - END OF NOTE <GLADIS RUBALCAVA - Last Filed: 09/15/23 11:40> Vital Signs: Vital Signs - 24 hr Temp Pulse Resp BP Pulse Ox 09/15/23 20:00 97.9 F 68 18 148/67 95 09/15/23 19:32 63 16 96 09/15/23 16:00 97.2 F 62 12 122/57 94 L 09/15/23 12:00 96.0 F 66 19 134/58 93 L 09/15/23 11:17 76 18 93 L 09/15/23 08:00 97.8 F 81 20 127/60 09/15/23 07:51 72 18 93 L 09/15/23 03:59 97.8 F 78 17 132/60 96 09/14/23 23:47 97.9 F 70 19 88/44 96 Pain Assessment - Last Documented Pain Intensity 0 Pain Scale Used 0-10 Pain Scale Intake and Output: Intake & Output 09/13/23 09/14/23 09/15/23 09/16/23 11:59 11:59 11:59 11:59 Intake Total 1320 400 Output Total 605 800 Balance 715 -400 Weight 93.7 kg 89.5 kg Lab Results: Lab Results-Last 24 Hours 09/14/23 09/14/23 09/14/23 Range/Units 21:10 21:10 21:10 WBC (4.0-10.5) x10^3/uL RBC (4.1-5.4) x10^6/uL Hgb (12.0-16.0) g/dL Hct (35-47) % MCV (78-100) fL MCH (26-32) pg MCHC (32-36) g/dL RDW (11.5-14.0) % Plt Count (150-450) x10^3/uL MPV (7.5-11.0) fL Gran % (36.0-66.0) % Immature Gran % (Auto) (0.00-0.4) % Nucleat RBC Rel Count (0.00-0.1) % Eos # (Auto) (0-0.5) x10^3/uL Immature Gran # (Auto) (0.00-0.03) x10^3u/L Absolute Lymphs (auto) (1.0-4.6) x10^3/uL Absolute Monos (auto) (0.0-1.3) x10^3/uL Absolute Nucleated RBC (0.00-0.01) x10^3u/L Lymphocytes % (24.0-44.0) % Monocytes % (0.0-12.0) % Eosinophils % (0.00-5.0) % Basophils % (0.0-0.4) % Absolute Granulocytes (1.4-6.9) x10^3/uL Basophils # (0-0.4) x10^3/uL D-Dimer 9.31 H* (0.0-0.50) mg/L Sodium 131 L (137-145) mmol/L Potassium 3.1 L (3.5-5.1) mmol/L Chloride 97 L (98-107) mmol/L Carbon Dioxide 25 (22-30) mmol/L Anion Gap 11.9 (5-15) MEQ/L BUN 40 H (7-17) mg/dL Creatinine 2.14 H (0.52-1.04) mg/dL Estimated GFR 23.3 ML/MIN Glucose 118 H (74-106) mg/dL Lactic Acid (0.4-2.0) Calcium 8.8 (8.4-10.2) mg/dL Magnesium (1.6-2.3) mg/dL Total Bilirubin 0.80 (0.2-1.3) mg/dL AST 40 H (14-36) U/L ALT 25 (0-35) U/L Alkaline Phosphatase 78 (38-126) U/L Troponin I 0.016 (0.000-0.034) ng/mL NT-Pro-B Natriuret Pep (<300) pg/mL Serum Total Protein 6.3 (6.3-8.2) g/dL Albumin 3.2 L (3.5-5.0) g/dL 12/09/15/23 09/15/23 Range/Units 21:45 05:20 05:20 WBC 9.4 (4.0-10.5) x10^3/uL RBC 5.38 (4.1-5.4) x10^6/uL Hgb 14.2 (12.0-16.0) g/dL Hct 44.2 (35-47) % MCV 82.2 (78-100) fL MCH 26.4 (26-32) pg MCHC 32.1 (32-36) g/dL RDW 18.5 H (11.5-14.0) % Plt Count 324 (150-450) x10^3/uL MPV 12.4 H (7.5-11.0) fL Gran % 81.7 H (36.0-66.0) % Immature Gran % (Auto) 1.1 H (0.00-0.4) % Nucleat RBC Rel Count 0.0 (0.00-0.1) % Eos # (Auto) 0.05 (0-0.5) x10^3/uL Immature Gran # (Auto) 0.10 H (0.00-0.03) x10^3u/L Absolute Lymphs (auto) 0.55 L (1.0-4.6) x10^3/uL Absolute Monos (auto) 0.95 (0.0-1.3) x10^3/uL Absolute Nucleated RBC 0.00 (0.00-0.01) x10^3u/L Lymphocytes % 5.9 L (24.0-44.0) % Monocytes % 10.1 (0.0-12.0) % Eosinophils % 0.5 (0.00-5.0) % Basophils % 0.7 (0.0-0.4) % Absolute Granulocytes 7.68 H (1.4-6.9) x10^3/uL Basophils # 0.07 (0-0.4) x10^3/uL D-Dimer (0.0-0.50) mg/L Sodium 128 L (137-145) mmol/L Potassium 3.0 L* (3.5-5.1) mmol/L Chloride 97 L (98-107) mmol/L Carbon Dioxide 21 L (22-30) mmol/L Anion Gap 12.6 (5-15) MEQ/L BUN 41 H (7-17) mg/dL Creatinine 1.91 H (0.52-1.04) mg/dL Estimated GFR 26.7 ML/MIN Glucose 120 H (74-106) mg/dL Lactic Acid 1.8 (0.4-2.0) Calcium 8.7 (8.4-10.2) mg/dL Magnesium (1.6-2.3) mg/dL Total Bilirubin 0.90 (0.2-1.3) mg/dL AST 42 H (14-36) U/L ALT 26 (0-35) U/L Alkaline Phosphatase 90 (38-126) U/L Troponin I (0.000-0.034) ng/mL NT-Pro-B Natriuret Pep 1270 (<300) pg/mL Serum Total Protein 6.6 (6.3-8.2) g/dL Albumin 3.3 L (3.5-5.0) g/dL 09/15/23 Range/Units 06:24 WBC (4.0-10.5) x10^3/uL RBC (4.1-5.4) x10^6/uL Hgb (12.0-16.0) g/dL Hct (35-47) % MCV (78-100) fL MCH (26-32) pg MCHC (32-36) g/dL RDW (11.5-14.0) % Plt Count (150-450) x10^3/uL MPV (7.5-11.0) fL Gran % (36.0-66.0) % Immature Gran % (Auto) (0.00-0.4) % Nucleat RBC Rel Count (0.00-0.1) % Eos # (Auto) (0-0.5) x10^3/uL Immature Gran # (Auto) (0.00-0.03) x10^3u/L Absolute Lymphs (auto) (1.0-4.6) x10^3/uL Absolute Monos (auto) (0.0-1.3) x10^3/uL Absolute Nucleated RBC (0.00-0.01) x10^3u/L Lymphocytes % (24.0-44.0) % Monocytes % (0.0-12.0) % Eosinophils % (0.00-5.0) % Basophils % (0.0-0.4) % Absolute Granulocytes (1.4-6.9) x10^3/uL Basophils # (0-0.4) x10^3/uL D-Dimer (0.0-0.50) mg/L Sodium (137-145) mmol/L Potassium (3.5-5.1) mmol/L Chloride (98-107) mmol/L Carbon Dioxide (22-30) mmol/L Anion Gap (5-15) MEQ/L BUN (7-17) mg/dL Creatinine (0.52-1.04) mg/dL Estimated GFR ML/MIN Glucose (74-106) mg/dL Lactic Acid (0.4-2.0) Calcium (8.4-10.2) mg/dL Magnesium 1.6 (1.6-2.3) mg/dL Total Bilirubin (0.2-1.3) mg/dL AST (14-36) U/L ALT (0-35) U/L Alkaline Phosphatase (38-126) U/L Troponin I (0.000-0.034) ng/mL NT-Pro-B Natriuret Pep (<300) pg/mL Serum Total Protein (6.3-8.2) g/dL Albumin (3.5-5.0) g/dL Radiology Exams: Radiology Procedures Category Date Time Status CHEST 1 VIEW (PORTABLE) Stat Exams 09/14/23 14:30 Completed PULMONARY PERF VENTILATION [NUCMED] Urgent Exams 09/15/23 06:54 Ordered Multi-Disciplinary Progress Notes: Multi-Disciplinary Progress Notes 09/15/23 07:37 Pharmacy Note by Seth Munroe Lovenox changed to once daily per renal dosing policy. Estimated crcl is 23ml/min based on creat of 1.9. Initialized on 09/15/23 07:37 - END OF NOTE <GAVIN PA - Last Filed: 09/15/23 20:46> Assessment/Plan (1) Pneumonia Current Visit: Yes Status: Acute Code(s): J18.9 - PNEUMONIA, UNSPECIFIED ORGANISM (2) COVID-19 virus infection Current Visit: Yes Status: Acute Code(s): U07.1 - COVID-19 (3) UTI (urinary tract infection) Current Visit: Yes Status: Acute Code(s): N39.0 - URINARY TRACT INFECTION, SITE NOT SPECIFIED (4) CHRISTOPHE (acute kidney injury) Current Visit: Yes Status: Acute Code(s): N17.9 - ACUTE KIDNEY FAILURE, UNSPECIFIED (5) Elevated lactic acid level Current Visit: Yes Status: Acute Code(s): R79.89 - OTHER SPECIFIED ABNORMAL FINDINGS OF BLOOD CHEMISTRY (6) Elevated AST (SGOT) Current Visit: Yes Status: Acute Code(s): R74.01 - ELEVATION OF LEVELS OF LIVER TRANSAMINASE LEVELS (7) Smoker Current Visit: Yes Status: Acute Code(s): F17.200 - NICOTINE DEPENDENCE, UNSPECIFIED, UNCOMPLICATED (8) Weakness Current Visit: Yes Status: Acute Code(s): R53.1 - WEAKNESS (9) COPD (chronic obstructive pulmonary disease) Current Visit: Yes Status: Chronic (10) Elevated brain natriuretic peptide (BNP) level Current Visit: Yes Status: Acute Code(s): R79.89 - OTHER SPECIFIED ABNORMAL FINDINGS OF BLOOD CHEMISTRY (11) Elevated troponin Current Visit: Yes Status: Acute Code(s): R79.89 - OTHER SPECIFIED ABNORMAL FINDINGS OF BLOOD CHEMISTRY (12) Mild dehydration Current Visit: Yes Status: Acute Code(s): E86.0 - DEHYDRATION (13) Hyponatremia Current Visit: No Status: Acute Code(s): E87.1 - HYPO-OSMOLALITY AND HYPONATREMIA (14) GERD (gastroesophageal reflux disease) Current Visit: Yes Status: Acute Code(s): K21.9 - GASTRO-ESOPHAGEAL REFLUX DISEASE WITHOUT ESOPHAGITIS (15) HTN (hypertension) Current Visit: Yes Status: Acute Code(s): I10 - ESSENTIAL (PRIMARY) HYPERTENSION (16) Hyperlipidemia Current Visit: Yes Status: Acute Code(s): E78.5 - HYPERLIPIDEMIA, UNSPECIFIED (17) Hypothyroidism Current Visit: Yes Status: Acute Code(s): E03.9 - HYPOTHYROIDISM, UNSPECIFIED (18) Depression Current Visit: Yes Status: Acute Code(s): F32.A - DEPRESSION, UNSPECIFIED (19) Hypokalemia Current Visit: Yes Status: Acute Assessment & Plan: (1) Pneumonia Current Visit: Yes Status: Acute Assessment & Plan: - As seen on chest XR - rocephin and azithromycin - Decadron 6mg po daily - Pt on baseline 2LNC at noc - CBC 14 - RT eval and treat - IS - BC x2 pending - duonebs 09/15 - WBC WNL - On BL O2 at night only Code(s): J18.9 - PNEUMONIA, UNSPECIFIED ORGANISM (2) COVID-19 virus infection Current Visit: Yes Status: Acute Assessment & Plan: - positive test in ER - 6mg decadron daily PO - Has has sxs for > week Covid meds not needed - Tylenol for fever - Compazine for nausea - IVF Code(s): U07.1 - COVID-19 (3) UTI (urinary tract infection) Current Visit: Yes Status: Acute Assessment & Plan: - UC pending - rocephin IV 09/15 - UC negative Code(s): N39.0 - URINARY TRACT INFECTION, SITE NOT SPECIFIED (4) CHRISTOPHE (acute kidney injury) Current Visit: Yes Status: Acute Assessment & Plan: - Creat 1.98, BUN 34, GRF 25.6 - IVF - 2:2 dehydration 09/15 - Slowly improving- labs reviewed - Cont IVF Code(s): N17.9 - ACUTE KIDNEY FAILURE, UNSPECIFIED (5) Elevated lactic acid level Current Visit: Yes Status: Acute Assessment & Plan: - Lactic on admission2.5- NS @ 250ml/hr started in ER - repeat lactic acid 2.5- 500ml/hr NS bolus ordered - will recheck in 3 hours 09/15 - resolved Code(s): R79.89 - OTHER SPECIFIED ABNORMAL FINDINGS OF BLOOD CHEMISTRY (6) Elevated AST (SGOT) Current Visit: Yes Status: Acute Assessment & Plan: - AST 50- most likely r/t infection 09/15 - improving 42 - denies abd pain Code(s): R74.01 - ELEVATION OF LEVELS OF LIVER TRANSAMINASE LEVELS (7) Smoker Current Visit: Yes Status: Acute Assessment & Plan: - Smokes 1ppd - advised cessation - nicotine patch- pt refuses Code(s): F17.200 - NICOTINE DEPENDENCE, UNSPECIFIED, UNCOMPLICATED (8) Weakness Current Visit: Yes Status: Acute Assessment & Plan: - PT/OT Code(s): R53.1 - WEAKNESS (9) COPD (chronic obstructive pulmonary disease) Current Visit: Yes Status: Chronic Assessment & Plan: - Chronic - on 2LNC at HS only - RT eval and treat (10) Elevated brain natriuretic peptide (BNP) level Current Visit: Yes Status: Acute Assessment & Plan: - lasix x1 gave in ER - BNP 2850 - Pt has no edema - No hx of CHF - no increased SOB 09/15 - improved BNP Code(s): R79.89 - OTHER SPECIFIED ABNORMAL FINDINGS OF BLOOD CHEMISTRY (11) Elevated troponin Current Visit: Yes Status: Acute Assessment & Plan: - 1st trop 0.036, 2nd trop normal, 3rd normal - denies CP - EKG reviewed - Tele Code(s): R79.89 - OTHER SPECIFIED ABNORMAL FINDINGS OF BLOOD CHEMISTRY (12) Mild dehydration Current Visit: Yes Status: Acute Assessment & Plan: - IVF started - anion gap 17.6 - Compazine for nausea 09/15 - anion gap WNL Code(s): E86.0 - DEHYDRATION (13) Hyponatremia Current Visit: No Status: Acute Assessment & Plan: - Mild 133- trend 09/15 - 128- cont IV fluids - r/t hypovolemia Code(s): E87.1 - HYPO-OSMOLALITY AND HYPONATREMIA (14) GERD (gastroesophageal reflux disease) Current Visit: Yes Status: Acute Assessment & Plan: - continue omeprazole Code(s): K21.9 - GASTRO-ESOPHAGEAL REFLUX DISEASE WITHOUT ESOPHAGITIS (15) HTN (hypertension) Current Visit: Yes Status: Acute Assessment & Plan: - BP stable - hold chlorthalidone and losartan- d/t CHRISTOPHE Code(s): I10 - ESSENTIAL (PRIMARY) HYPERTENSION (16) Hyperlipidemia Current Visit: Yes Status: Acute Assessment & Plan: - continue statin Code(s): E78.5 - HYPERLIPIDEMIA, UNSPECIFIED (17) Hypothyroidism Current Visit: Yes Status: Acute Assessment & Plan: - continue synthroid Code(s): E03.9 - HYPOTHYROIDISM, UNSPECIFIED (18) Depression Current Visit: Yes Status: Acute Assessment & Plan: -Continue prozac 19. Hypokalemia E87.6 - K+ 3.0 replaced - trend VTE: Lovenox PPI: Omeprazole D/C plan: 1-2 days Next of kin: Jackie Garcia [phone] Code status: Code(s): E87.6 - HYPOKALEMIA <CORINNE-KEARNEY,GLADIS A. - Last Filed: 09/15/23 11:40> MOY Encounter - MOY Encounter Attestation MOY Encounter Attestation: "IhavepersonallyseenandexamineRemyGAILLORENE,ZAIRA FLOREZ andhavediscussed pertinent aspects of their care with Gladis Townsend agree with the history, physical exam (any modifications based on my personal exam will be noted below), assessment, and plan as outlined in original note. Please see immediately below for my summary of findings and additional assessment and plan along with any meaningful corrections/explanations to the Subjective/Objective portions of the MOY note will be noted." My portion of the encounter took place via telemedicine. -Patient now off oxygen and feels better but has slow improvement in creatinine and sodium lower today at 128. Would monitor another day. Continue IVF <GAVIN PA - Last Filed: 09/15/23 20:46>
[2023-09-15] MEDS ORDERED: HEPARIN 5000 UNITS/0.5 ML (HIGH RISK MED) SQ SCH (14:00)
[2023-09-15] MEDS: Sodium Chloride 0.9% 1000 ML 1,000 ML IV SCH (16:11)
[2023-09-15] MEDS: HEPARIN 5000 UNITS/0.5 ML (HIGH RISK MED) SQ SCH (22:47)
[2023-09-16] MEDS: HEPARIN 5000 UNITS/0.5 ML (HIGH RISK MED) SQ SCH (05:37)
[2023-09-16 06:11] LABS: Hematocrit 45.1 % (35-47); Hemoglobin 14.6 g/dL (12.0-16.0); Mean Cell Volume 82.6 fL (78-100); Mean Corpuscular Hemoglobin 26.7 pg (26-32); Mean Corpuscular Hgb Concent. 32.4 g/dL (32-36); Mean Platelet Volume 12.2 fL (7.5-11.0); Platelet Count 336 x10^3/uL (150-450); Red Blood Count 5.46 x10^6/uL (4.1-5.4); Red Cell Distribution Width 18.1 % (11.5-14.0); White Blood Count 10.5 x10^3/uL (4.0-10.5)
[2023-09-16 06:28] LABS: ALBUMIN 3.3 g/dL (3.5-5.0); ANION GAP 7.9 MEQ/L (5-15); BILIRUBIN,TOTAL 0.6 mg/dL (0.2-1.3); Calcium 9.3 mg/dL (8.4-10.2); Creatinine 1 1.25 mg/dL (0.52-1.04); EST GLOMERULAR FILTRATION RATE 44.4 ML/MIN; Potassium 3.4 mmol/L (3.5-5.1); Total Protein 6.7 g/dL (6.3-8.2)
[2023-09-16] MEDS ORDERED: DUONEB 0.5-3 MG/3 ml Neb IH PRN (07:07)
[2023-09-16] MEDS ORDERED: Klor Con PO ONE (08:00)
--- NOTE | 2023-09-16 08:25 | PCM.NOTE ---
Date and Time: 09/16/23821 Subjective Assessment: 09/14/23 is a 77 year old female with a PMHX of depression, COPD, hyperlipidemia, hypertension, hypothyroidism, arthritis, osteoporosis, chronic anemia and gastroesophageal reflux disease. She is a daily smoker. She was brought into the emergency room by family for 2 weeks of worsening weakness, decreased appetite and unexplained and unintentional weight loss of 10 pounds over the last 1 to 2 weeks. She was positive for COVID in the ER she has had sxs for greater than a week now. UA shows UTI and treated with rocephin. IV fluids started for dehydration and CHRISTOPHE. She was also given lasix as her BNP was 2850. She has no edema or hx of CHF. She is on baseline 2LNC at HS. Lactic acid elevated and 500ml fluid bolus ordered, will recheck repeat LA in 3 hours. Chest XR shows pneumonia- will start steroids and azithromycin. She denies CP, SOB, Abd. pain, N/V/D. 09/15/23 Pt sitting up in a chair today. She is no longer requiring oxygen. She explains she feels much better today. D-Dimer was elevated at 9.31. She is unable to have CT with PE protocol at this time d/t CHRISTOPHE. She is unable to have a VQ scan until next . She has no hx of CKD so when her CHRISTOPHE improves will order a CT with PE protocol. Changed lovenox to heparin d/t CHRISTOPHE, and elevated D-dimer. Na+ 128, and continued CHRISTOPHE- continue IVF. She did have 3 loose stools last night. K+ replaced today. Lactic acid is WNL today. She denies CP, SOB, abd pain, N/V, edema. 09/16/23 Pt resting in bed. She reports she is feeling much better. She would like to go home as tomorrow is [place] and her [birth year]. Discussed her labs and the need for further evaluation of elevated D-dimer. Potassium replaced. Continue IVF, CHRISTOPHE improving OBJECTIVE DATA Vital Signs: Vital Signs - 24 hr Temp Pulse Resp BP Pulse Ox 09/16/23 07:05 60 16 94 L 09/16/23 04:00 97.5 F 62 17 140/89 96 09/15/23 23:21 98.1 F 64 18 142/66 98 09/15/23 20:00 97.9 F 68 18 148/67 95 09/15/23 19:32 63 16 96 09/15/23 16:00 97.2 F 62 12 122/57 94 L 09/15/23 12:00 96.0 F 66 19 134/58 93 L 09/15/23 11:17 76 18 93 L Pain Assessment - Last Documented Pain Intensity 0 Pain Scale Used 0-10 Pain Scale Intake and Output: Intake & Output 09/13/23 09/14/23 09/15/23 09/16/23 11:59 11:59 11:59 11:59 Intake Total 1320 880 Output Total 605 800 Balance 715 80 Weight 93.7 kg 89.5 kg Lab Results: Lab Results-Last 24 Hours 09/16/23 09/16/23 Range/Units 05:18 05:18 WBC 10.5 (4.0-10.5) x10^3/uL RBC 5.46 H (4.1-5.4) x10^6/uL Hgb 14.6 (12.0-16.0) g/dL Hct 45.1 (35-47) % MCV 82.6 (78-100) fL MCH 26.7 (26-32) pg MCHC 32.4 (32-36) g/dL RDW 18.1 H (11.5-14.0) % Plt Count 336 (150-450) x10^3/uL MPV 12.2 H (7.5-11.0) fL Sodium 135 L D (137-145) mmol/L Potassium 3.4 L (3.5-5.1) mmol/L Chloride 102 (98-107) mmol/L Carbon Dioxide 28 (22-30) mmol/L Anion Gap 7.9 (5-15) MEQ/L BUN 41 H (7-17) mg/dL Creatinine 1.25 H (0.52-1.04) mg/dL Estimated GFR 44.4 ML/MIN Glucose 115 H (74-106) mg/dL Calcium 9.3 (8.4-10.2) mg/dL Total Bilirubin 0.60 (0.2-1.3) mg/dL AST 34 (14-36) U/L ALT 27 (0-35) U/L Alkaline Phosphatase 97 (38-126) U/L Serum Total Protein 6.7 (6.3-8.2) g/dL Albumin 3.3 L (3.5-5.0) g/dL Radiology Exams: Radiology Procedures Category Date Time Status CHEST 1 VIEW (PORTABLE) Stat Exams 09/14/23 14:30 Completed PULMONARY PERF VENTILATION [NUCMED] Urgent Exams 09/15/23 06:54 Ordered Assessment/Plan (1) Pneumonia Current Visit: Yes Status: Acute Code(s): J18.9 - PNEUMONIA, UNSPECIFIED ORGANISM (2) COVID-19 virus infection Current Visit: Yes Status: Acute Code(s): U07.1 - COVID-19 (3) UTI (urinary tract infection) Current Visit: Yes Status: Acute Code(s): N39.0 - URINARY TRACT INFECTION, SITE NOT SPECIFIED (4) CHRISTOPHE (acute kidney injury) Current Visit: Yes Status: Acute Code(s): N17.9 - ACUTE KIDNEY FAILURE, UNSPECIFIED (5) Elevated lactic acid level Current Visit: Yes Status: Acute Code(s): R79.89 - OTHER SPECIFIED ABNORMAL FINDINGS OF BLOOD CHEMISTRY (6) Elevated AST (SGOT) Current Visit: Yes Status: Acute Code(s): R74.01 - ELEVATION OF LEVELS OF LIVER TRANSAMINASE LEVELS (7) Smoker Current Visit: Yes Status: Acute Code(s): F17.200 - NICOTINE DEPENDENCE, UNSPECIFIED, UNCOMPLICATED (8) Weakness Current Visit: Yes Status: Acute Code(s): R53.1 - WEAKNESS (9) COPD (chronic obstructive pulmonary disease) Current Visit: Yes Status: Chronic (10) Elevated brain natriuretic peptide (BNP) level Current Visit: Yes Status: Acute Code(s): R79.89 - OTHER SPECIFIED ABNORMAL FINDINGS OF BLOOD CHEMISTRY (11) Elevated troponin Current Visit: Yes Status: Acute Code(s): R79.89 - OTHER SPECIFIED ABNORMAL FINDINGS OF BLOOD CHEMISTRY (12) Mild dehydration Current Visit: Yes Status: Acute Code(s): E86.0 - DEHYDRATION (13) Hyponatremia Current Visit: No Status: Acute Code(s): E87.1 - HYPO-OSMOLALITY AND HYPONATREMIA (14) GERD (gastroesophageal reflux disease) Current Visit: Yes Status: Acute Code(s): K21.9 - GASTRO-ESOPHAGEAL REFLUX DISEASE WITHOUT ESOPHAGITIS (15) HTN (hypertension) Current Visit: Yes Status: Acute Code(s): I10 - ESSENTIAL (PRIMARY) HYPERTENSION (16) Hyperlipidemia Current Visit: Yes Status: Acute Code(s): E78.5 - HYPERLIPIDEMIA, UNSPECIFIED (17) Hypothyroidism Current Visit: Yes Status: Acute Code(s): E03.9 - HYPOTHYROIDISM, UNSPECIFIED (18) Depression Current Visit: Yes Status: Acute Code(s): F32.A - DEPRESSION, UNSPECIFIED (19) Hypokalemia Current Visit: Yes Status: Acute Code(s): E87.6 - HYPOKALEMIA
[2023-09-16 08:26] VITALS: BP 153/70; PULSE 61; RESP 17; TEMP 96.9; O2SAT 93
--- NOTE | 2023-09-16 09:55 | PCM.DS ---
Discharge Summary Date of Admission: 09/14/23 17:06 Date of Discharge: 09/16/23 Admitting Physician: GAVIN PA MD Primary Care Provider: ZAN JOHNS <LGADIS RUBALCAVA - Last Filed: 09/16/23 09:46> Date of Admission: 09/14/23 17:06 Date of Discharge: 09/16/23 Admitting Physician: GAVIN PA MD Primary Care Provider: ZAN JOHNS <GAVIN PA - Last Filed: 09/16/23 17:18> Allergies <GLADIS RUBALCAVA - Last Filed: 09/16/23 09:46> <GAVIN PA - Last Filed: 09/16/23 17:18> Allergies No Known Drug Allergies Allergy (Verified 09/14/23 11:37) Hospital Summary - Hospital Course Hospital Course: 09/14/23 is a 77 year old female with a PMHX of depression, COPD, hyperlipidemia, hypertension, hypothyroidism, arthritis, osteoporosis, chronic anemia and gastroesophageal reflux disease. She is a daily smoker. She was brought into the emergency room by family for 2 weeks of worsening weakness, decreased appetite and unexplained and unintentional weight loss of 10 pounds over the last 1 to 2 weeks. She was positive for COVID in the ER she has had sxs for greater than a week now. UA shows UTI and treated with rocephin. IV fluids started for dehydration and CHRISTOPHE. She was also given lasix as her BNP was 2850. She has no edema or hx of CHF. She is on baseline 2LNC at HS. Lactic acid elevated and 500ml fluid bolus ordered, will recheck repeat LA in 3 hours. Chest XR shows pneumonia- will start steroids and azithromycin. She denies CP, SOB, Abd. pain, N/V/D. 09/15/23 Pt sitting up in a chair today. She is no longer requiring oxygen. She explains she feels much better today. D-Dimer was elevated at 9.31. She is unable to have CT with PE protocol at this time d/t CHRISTOPHE. She is unable to have a VQ scan until next . She has no hx of CKD so when her CHRISTOPHE improves will order a CT with PE protocol. Changed lovenox to heparin d/t CHRISTOPHE, and elevated D-dimer. Na+ 128, and continued CHRISTOPHE- continue IVF. She did have 3 loose stools last night. K+ replaced today. Lactic acid is WNL today. She denies CP, SOB, abd pain, N/V, edema. 09/16/23 Pt resting in bed. She reports she is feeling much better. She would like to go home as tomorrow is [place] and her birthday. Discussed her labs and the need for further evaluation of elevated D-dimer. Potassium replaced. Continue PO intake, CHRISTOPHE improving. Will allow pt to d/c as she has no SOB, no CP, no leg pain. She is walking around the room without any concerns. She will need to f/u with PCP for BMP and d-dimer labs. Can schedule CT with PE protocol OP with Dr. Johns if needed. - Vitals & Intake/Output Vital Signs: Vital Signs Temperature 96.9 F 09/16/23 08:20 Pulse Rate 61 09/16/23 08:20 Respiratory Rate 17 09/16/23 08:20 Blood Pressure 153/70 09/16/23 08:20 O2 Sat by Pulse Oximetry 93 L 09/16/23 08:20 Intake & Output: Intake & Output 09/13/23 09/14/23 09/15/23 09/16/23 11:59 11:59 11:59 11:59 Intake Total 1320 1560 Output Total 605 800 Balance 715 760 Weight 93.7 kg 89.5 kg - Lab Result Diagrams: 09/16/23 05:18 09/16/23 05:18 Lab Results-Last 24 Hrs: Lab Results-Last 24 Hours 09/16/23 09/16/23 Range/Units 05:18 05:18 WBC 10.5 (4.0-10.5) x10^3/uL RBC 5.46 H (4.1-5.4) x10^6/uL Hgb 14.6 (12.0-16.0) g/dL Hct 45.1 (35-47) % MCV 82.6 (78-100) fL MCH 26.7 (26-32) pg MCHC 32.4 (32-36) g/dL RDW 18.1 H (11.5-14.0) % Plt Count 336 (150-450) x10^3/uL MPV 12.2 H (7.5-11.0) fL Sodium 135 L D (137-145) mmol/L Potassium 3.4 L (3.5-5.1) mmol/L Chloride 102 (98-107) mmol/L Carbon Dioxide 28 (22-30) mmol/L Anion Gap 7.9 (5-15) MEQ/L BUN 41 H (7-17) mg/dL Creatinine 1.25 H (0.52-1.04) mg/dL Estimated GFR 44.4 ML/MIN Glucose 115 H (74-106) mg/dL Calcium 9.3 (8.4-10.2) mg/dL Total Bilirubin 0.60 (0.2-1.3) mg/dL AST 34 (14-36) U/L ALT 27 (0-35) U/L Alkaline Phosphatase 97 (38-126) U/L Serum Total Protein 6.7 (6.3-8.2) g/dL Albumin 3.3 L (3.5-5.0) g/dL Micro Results-Entire Visit: Microbiology 09/14/23 12:55 Blood Culture - Preliminary Blood 09/14/23 12:39 Blood Culture - Preliminary Blood 09/14/23 12:13 Urine Culture - Preliminary Clean Catch Midstream NO GROWTH TO DATE - Radiology Exams Ordered Rad Exams-Entire Visit: Radiology Procedures Category Date Time Status CHEST 1 VIEW (PORTABLE) Stat Exams 09/14/23 14:30 Completed PULMONARY PERF VENTILATION [NUCMED] Urgent Exams 09/15/23 06:54 Ordered - Procedures and Test Procedures and Tests throughout Hospitalization: Therapy Orders & Screens 09/14/23 17:23 EKG REPEAT IN AM Comment: Oxygen Nasal Cannula 2 lpm Comment: Respiratory Therapy Consult ONCE Comment: Reason For Exam: 09/14/23 17:34 PT Eval & Treat (MD Order) ONCE Reason for Eval:: weakness Diagnosis: COVID OT Eval and Treat (MD Order) ROUTINE Comment: Physician Instructions: Reason For Exam: Diagnosis: COVID 09/14/23 18:25 Incentive Spirometry TID Comment: Diagnosis: COVID 09/14/23 18:44 Respiratory Therapy Assessment DAILY Comment: Diagnosis: COVID <GLADIS RUBALCAVA - Last Filed: 09/16/23 09:46> - Vitals & Intake/Output Vital Signs: Vital Signs Temperature 96.9 F 09/16/23 08:20 Pulse Rate 61 09/16/23 08:20 Respiratory Rate 17 09/16/23 08:20 Blood Pressure 153/70 09/16/23 08:20 O2 Sat by Pulse Oximetry 93 L 09/16/23 08:20 Intake & Output: Intake & Output 09/14/23 09/15/23 09/16/23 09/17/23 11:59 11:59 11:59 11:59 Intake Total 1320 1560 Output Total 605 800 Balance 715 760 Weight 93.7 kg 89.5 kg - Lab Result Diagrams: 09/16/23 05:18 09/16/23 05:18 Lab Results-Last 24 Hrs: Lab Results-Last 24 Hours 09/16/23 09/16/23 Range/Units 05:18 05:18 WBC 10.5 (4.0-10.5) x10^3/uL RBC 5.46 H (4.1-5.4) x10^6/uL Hgb 14.6 (12.0-16.0) g/dL Hct 45.1 (35-47) % MCV 82.6 (78-100) fL MCH 26.7 (26-32) pg MCHC 32.4 (32-36) g/dL RDW 18.1 H (11.5-14.0) % Plt Count 336 (150-450) x10^3/uL MPV 12.2 H (7.5-11.0) fL Sodium 135 L D (137-145) mmol/L Potassium 3.4 L (3.5-5.1) mmol/L Chloride 102 (98-107) mmol/L Carbon Dioxide 28 (22-30) mmol/L Anion Gap 7.9 (5-15) MEQ/L BUN 41 H (7-17) mg/dL Creatinine 1.25 H (0.52-1.04) mg/dL Estimated GFR 44.4 ML/MIN Glucose 115 H (74-106) mg/dL Calcium 9.3 (8.4-10.2) mg/dL Total Bilirubin 0.60 (0.2-1.3) mg/dL AST 34 (14-36) U/L ALT 27 (0-35) U/L Alkaline Phosphatase 97 (38-126) U/L Serum Total Protein 6.7 (6.3-8.2) g/dL Albumin 3.3 L (3.5-5.0) g/dL Micro Results-Entire Visit: Microbiology 09/14/23 12:13 Urine Culture - Final Clean Catch Midstream NO GROWTH 09/14/23 12:55 Blood Culture - Preliminary Blood 09/14/23 12:39 Blood Culture - Preliminary Blood - Radiology Exams Ordered Rad Exams-Entire Visit: Radiology Procedures Category Date Time Status PULMONARY PERF VENTILATION [NUCMED] Urgent Exams 09/15/23 06:54 Ordered - Procedures and Test Procedures and Tests throughout Hospitalization: Therapy Orders & Screens 09/14/23 17:23 EKG REPEAT IN AM Comment: Oxygen Nasal Cannula 2 lpm Comment: Respiratory Therapy Consult ONCE Comment: Reason For Exam: 09/14/23 17:34 PT Eval & Treat (MD Order) ONCE Reason for Eval:: weakness Diagnosis: COVID OT Eval and Treat (MD Order) ROUTINE Comment: Physician Instructions: Reason For Exam: Diagnosis: COVID 09/14/23 18:25 Incentive Spirometry TID Comment: Diagnosis: COVID 09/14/23 18:44 Respiratory Therapy Assessment DAILY Comment: Diagnosis: COVID <THIERNOGAVIN - Last Filed: 09/16/23 17:18> Discharge Exam General Appearance: no apparent distress, alert Neurologic Exam: alert, oriented x 3, cooperative, normal mood/affect, nml cerebellar function, sensation nml, No motor deficits Eye Exam: PERRL, EOMI, eyes nml inspection Ears, Nose, Throat Exam: normal ENT inspection, pharynx normal, moist mucous membranes Neck Exam: normal inspection, non-tender, supple, full range of motion Respiratory Exam: normal breath sounds, lungs clear, No respiratory distress Cardiovascular Exam: regular rate/rhythm, normal heart sounds Gastrointestinal/Abdomen Exam: soft, No tenderness, No mass Pelvic Exam: deferred Rectal Exam: deferred Back Exam: normal inspection, normal range of motion, No CVA tenderness, No vertebral tenderness Extremity Exam: normal inspection, normal range of motion Skin Exam: normal color, warm, dry <GLADIS RUBALCAVA - Last Filed: 09/16/23 09:46> Final Diagnosis/Problem List - Final Discharge Diagnosis/Problem (1) Pneumonia Status: Acute Code(s): J18.9 - PNEUMONIA, UNSPECIFIED ORGANISM (2) COVID-19 virus infection Status: Acute Code(s): U07.1 - COVID-19 (3) UTI (urinary tract infection) Status: Acute Code(s): N39.0 - URINARY TRACT INFECTION, SITE NOT SPECIFIED (4) CHRISTPOHE (acute kidney injury) Status: Acute Code(s): N17.9 - ACUTE KIDNEY FAILURE, UNSPECIFIED (5) Elevated lactic acid level Status: Acute Code(s): R79.89 - OTHER SPECIFIED ABNORMAL FINDINGS OF BLOOD CHEMISTRY (6) Elevated AST (SGOT) Status: Acute Code(s): R74.01 - ELEVATION OF LEVELS OF LIVER TRANSAMINASE LEVELS (7) Smoker Status: Acute Code(s): F17.200 - NICOTINE DEPENDENCE, UNSPECIFIED, UNCOMPLICATED (8) Weakness Status: Acute Code(s): R53.1 - WEAKNESS (9) COPD (chronic obstructive pulmonary disease) Status: Chronic (10) Elevated brain natriuretic peptide (BNP) level Status: Acute Code(s): R79.89 - OTHER SPECIFIED ABNORMAL FINDINGS OF BLOOD ANITA INGRID (11) Elevated troponin Status: Acute Code(s): R79.89 - OTHER SPECIFIED ABNORMAL FINDINGS OF BLOOD CHEMISTRY (12) Mild dehydration Status: Acute Code(s): E86.0 - DEHYDRATION (13) Hyponatremia Status: Acute Code(s): E87.1 - HYPO-OSMOLALITY AND HYPONATREMIA (14) GERD (gastroesophageal reflux disease) Status: Acute Code(s): K21.9 - GASTRO-ESOPHAGEAL REFLUX DISEASE WITHOUT ESOPHAGITIS (15) HTN (hypertension) Status: Acute Code(s): I10 - ESSENTIAL (PRIMARY) HYPERTENSION (16) Hyperlipidemia Status: Acute Code(s): E78.5 - HYPERLIPIDEMIA, UNSPECIFIED (17) Hypothyroidism Status: Acute Code(s): E03.9 - HYPOTHYROIDISM, UNSPECIFIED (18) Depression Status: Acute Code(s): F32.A - DEPRESSION, UNSPECIFIED (19) Hypokalemia Status: Acute Assessment & Plan: 1) Pneumonia Current Visit: Yes Status: Acute Assessment & Plan: - As seen on chest XR - rocephin and azithromycin - Decadron 6mg po daily - Pt on baseline 2LNC at noc - CBC 14 - RT eval and treat - IS - BC x2 pending - duonebs 09/15 - WBC WNL - On BL O2 at night only Code(s): J18.9 - PNEUMONIA, UNSPECIFIED ORGANISM (2) COVID-19 virus infection Current Visit: Yes Status: Acute Assessment & Plan: - positive test in ER - 6mg decadron daily PO - Has has sxs for > week Covid meds not needed - Tylenol for fever - Compazine for nausea - IVF 09/16 - Stop steroids Code(s): U07.1 - COVID-19 (3) UTI (urinary tract infection) Current Visit: Yes Status: Acute Assessment & Plan: - UC pending - rocephin IV 09/15 - UC negative Code(s): N39.0 - URINARY TRACT INFECTION, SITE NOT SPECIFIED (4) CHRISTOPHE (acute kidney injury) Current Visit: Yes Status: Acute Assessment & Plan: - Creat 1.98, BUN 34, GRF 25.6 - IVF - 2:2 dehydration 09/15 - Slowly improving- labs reviewed - Cont IVF 09/16 - improving creat 1.25, BUN 41, GFR 44.4 - baseline is normal no CKD hx - F/u with PCP for repeat labs - continue to hold BP meds until f/u with PCP Code(s): N17.9 - ACUTE KIDNEY FAILURE, UNSPECIFIED (5) Elevated lactic acid level Current Visit: Yes Status: Acute Assessment & Plan: - Lactic on admission2.5- NS @ 250ml/hr started in ER - repeat lactic acid 2.5- 500ml/hr NS bolus ordered - will recheck in 3 hours 09/15 - resolved Code(s): R79.89 - OTHER SPECIFIED ABNORMAL FINDINGS OF BLOOD CHEMISTRY (6) Elevated AST (SGOT) Current Visit: Yes Status: Acute Assessment & Plan: - AST 50- most likely r/t infection 09/15 - improving 42 - denies abd pain 09/16 - resolved Code(s): R74.01 - ELEVATION OF LEVELS OF LIVER TRANSAMINASE LEVELS (7) Smoker Current Visit: Yes Status: Acute Assessment & Plan: - Smokes 1ppd - advised cessation - nicotine patch- pt refuses Code(s): F17.200 - NICOTINE DEPENDENCE, UNSPECIFIED, UNCOMPLICATED (8) Weakness Current Visit: Yes Status: Acute Assessment & Plan: - PT/OT 09/16 - resolved Code(s): R53.1 - WEAKNESS (9) COPD (chronic obstructive pulmonary disease) Current Visit: Yes Status: Chronic Assessment & Plan: - Chronic - on 2LNC at HS only - RT eval and treat (10) Elevated brain natriuretic peptide (BNP) level Current Visit: Yes Status: Acute Assessment & Plan: - lasix x1 gave in ER - BNP 2850 - Pt has no edema - No hx of CHF - no increased SOB 09/15 - improved BNP Code(s): R79.89 - OTHER SPECIFIED ABNORMAL FINDINGS OF BLOOD CHEMISTRY (11) Elevated troponin Current Visit: Yes Status: Acute Assessment & Plan: - 1st trop 0.036, 2nd trop normal, 3rd normal - denies CP - EKG reviewed - Tele Code(s): R79.89 - OTHER SPECIFIED ABNORMAL FINDINGS OF BLOOD CHEMISTRY (12) Mild dehydration Current Visit: Yes Status: Acute Assessment & Plan: - IVF started - anion gap 17.6 - Compazine for nausea 09/15 - anion gap WNL Code(s): E86.0 - DEHYDRATION (13) Hyponatremia Current Visit: No Status: Acute Assessment & Plan: - Mild 133- trend 09/15 - 128- cont IV fluids - r/t hypovolemia 09/16 - Na+ 135- improved Code(s): E87.1 - HYPO-OSMOLALITY AND HYPONATREMIA (14) GERD (gastroesophageal reflux disease) Current Visit: Yes Status: Acute Assessment & Plan: - continue omeprazole Code(s): K21.9 - GASTRO-ESOPHAGEAL REFLUX DISEASE WITHOUT ESOPHAGITIS (15) HTN (hypertension) Current Visit: Yes Status: Acute Assessment & Plan: - BP stable - hold chlorthalidone and losartan- d/t CHRISTOPHE Code(s): I10 - ESSENTIAL (PRIMARY) HYPERTENSION (16) Hyperlipidemia Current Visit: Yes Status: Acute Assessment & Plan: - continue statin Code(s): E78.5 - HYPERLIPIDEMIA, UNSPECIFIED (17) Hypothyroidism Current Visit: Yes Status: Acute Assessment & Plan: - continue synthroid Code(s): E03.9 - HYPOTHYROIDISM, UNSPECIFIED (18) Depression Current Visit: Yes Status: Acute Assessment & Plan: -Continue prozac 19. Hypokalemia E87.6 - K+ 3.0 replaced - trend 09/16 - K+ 3.4 replaced Code(s): E87.6 - HYPOKALEMIA <CORINNE-KEARNEY,GLADIS A. - Last Filed: 09/16/23 09:46> - Discharge Discharge Date: 09/16/23 <GLADIS RUBALCAVA - Last Filed: 09/16/23 09:46> <GAVIN PA - Last Filed: 09/16/23 17:18> - Discharge Disposition: Home, Self-Care Condition: Good Prescriptions: New Potassium Chloride Tab* [Klor Con] 20 meq PO BID 3 Days #10 tab Azithromycin [Azithromycin 250 mg Pack] 250 mg PO DAILY 4 Days #4 tablet Continue Ergocalciferol (Vitamin D2) [Vitamin D2] 50,000 unit PO DAILY Alendronate Sodium 70 mg [Fosamax 70 MG] 70 mg PO Q7D@0600 Simvastatin 40 mg PO DAILY Omeprazole 20 mg PO DAILY Nifedipine [Procardia Xl] 30 mg PO DAILY Losartan Potassium [Cozaar] 100 mg PO DAILY Levothyroxine Sodium 88 mcg PO DAILY Fluoxetine HCl [Prozac] 40 mg PO DAILY Cyanocobalamin (Vitamin B-12) [Vitamin B-12] 1,000 mcg PO DAILY Chlorthalidone 25 mg PO DAILY Albuterol Common Canister [Ventolin Common Canister] 2 puff IH Q4H PRN PRN #2 units PRN Reason: Shortness Of Breath/Wheezing Magnesium Citrate and Oxide [Magnesium] 250 mg PO DAILY Ferrous Sulfate [Ferosul] 1 tab PO DAILY Aspirin EC 81 mg [Ecotrin 81 mg] 81 mg PO DAILY #0 Instructions: Azithromycin (Systemic), Dehydration, Adult (DC) Additional Instructions: Hold Chlorthalidone and Losartan until you follow up with PCP for lab recheck. If ok with PCP then you can restart these. Follow up with PCP for BMP and repeat D-Dimer, will need to schedule Chest CT with PE protocol outpatient if acute kidney injury has resolved. Continue to drink fluids and eat well to stay hydrated. Follow up with: ZAN JOHNS MD [Primary Care Provider] - MOY Encounter - MOY Encounter Attestation MOY Encounter Attestation: "ZAIRA Lugo andhavediscussed pertinent aspects of their care with Gladis Rubalcava and agree with the history, physical exam (any modifications based on my personal exam will be noted below), assessment, and plan as outlined in original note. Please see immediately below for my summary of findings and additional assessment and plan along with any meaningful corrections/explanations to the Subjective/Objective portions of the MOY note will be noted." My portion of the encounter took place via telemedicine. -Patient is feeling much better, on room air without dyspnea. Elevated D dimer due to COVID. CT angio to evaluation for possible asymptomatic PE could not be performed due to elevated creatinine (trending down but not at at baseline). It can be done in the outpatient setting since patient has no hypoxia, dyspnea or tachycardia. Advised to follow up with PCP within a week. <GAVIN PA - Last Filed: 09/16/23 17:18>
[2023-09-16] MEDS: Sodium Chloride 0.9% 1000 ML 1,000 ML IV SCH (10:38)
== END 2023-09-16 10:30 | disposition home or self-care (01) ==
LOC: ED 11:17 → MED SURG 17:06
PROVIDERS: ADMIT Internal Medicine; ATTEND Internal Medicine
DX: J18.9 Pneumonia, unspecified organism (principal); U07.1 COVID-19; N39.0 Urinary tract infection, site not specified; N17.9 Acute kidney failure, unspecified; R79.89 Other specified abnormal findings of blood chemistry; R74.01 Elevation of levels of liver transaminase levels; F17.200 Nicotine dependence, unspecified, uncomplicated; R53.1 Weakness; J44.9 Chronic obstructive pulmonary disease, unspecified; E86.0 Dehydration; E87.1 Hypo-osmolality and hyponatremia; K21.9 Gastro-esophageal reflux disease without esophagitis; I10 Essential (primary) hypertension; E78.5 Hyperlipidemia, unspecified; E03.9 Hypothyroidism, unspecified; F32.A Depression, unspecified; E87.6 Hypokalemia; D64.9 Anemia, unspecified; Z79.899 Other long term (current) drug therapy; Z20.828 Contact with and (suspected) exposure to other viral communicable diseases
CPT/HCPCS: 0241U; 36000; 36415; 71045; 80053; 81001; 83605; 83735; 83880; 84436; 84443; 84484; 85025; 85027; 85379; 86308; 87040; 87086; 93005; 93268; 94640; 94760; 94762; 96360; 96365; 96374; 99285; J0456; J0696; J1644; J1650; J1940; Q3014; A9270-GY; G0378

== ENCOUNTER 2024-01-16 05:41 | Observation (INO) | payer MEDICARE ==
[2024-01-16] MEDS ORDERED: TYLENOL 325 MG ONE (06:27)
[2024-01-16] MEDS ORDERED: ROCEPHIN 2 GM/100 ML NACL 2 GM/100 ML IVPB IV ONE (06:27)
--- NOTE | 2024-01-16 06:27 | ERPHSYRPT ---
- History of Present Illness Time Seen by Provider: 01/16/24 06:10 Source: patient Exam Limitations: no limitations Patient Subjective Stated Complaint: cough x 3-4 days, increase in shortness of breath this am Triage Nursing Assessment: pt presents to ED via SCAT 1, pt alert and oriented x3, skin pink, hot to touch, and diaphoretic, pt transferred to bed via sheet pull by ems staff and nursing staff, pt c/o cough x 3-4 and increase in shortnes s of breath around 0500, wheezes heard expiratory bilaterally, pt has hx of COPD, pt was 89%-90% on RA so placed on 2 L NC, pt wears 2 L at nighttime Physician History: 78-year-old female with a history of COPD presents to our ED via EMS for evaluation of cough and shortness of breath. Cough is dry nonproductive. Patient had Solu-Medrol and albuterol en route. Upon arrival to our ED patient was observed to be in mild respiratory distress. Patient was hypoxic at 89% on room air. Wheezing observed. Patient utilizes oxygen at night 2 L as needed. Patient was febrile at 103. Symptoms started at approximately 5 AM. Symptoms have been constant. Symptoms are moderate in intensity. Symptoms worse with activity. Symptoms improved with rest and with application of oxygen. No active chest pain. Patient otherwise feels well. She voices no other complaints or concerns at this time. Portions of this note were created with voice recognition technology. There may be grammatical, spelling, punctuation or sound alike errors Timing/Duration: day(s) (3 days) Activities at Onset: none Severity of Dyspnea-Max: moderate Severity of Dyspnea-Current: mild Possible Cause: occasional episodes Modifying Factors: Improves With: activity Associated Symptoms: cough Allergies/Adverse Reactions: No Known Drug Allergies Allergy (Verified 01/16/24 05:54) Home Medications: Alendronate Sodium 70 mg [Fosamax 70 MG] 70 mg PO Q7D@0600 02/09/22 [History] Chlorthalidone 25 mg PO DAILY 02/09/22 [History] Levothyroxine Sodium 88 mcg PO DAILY 02/09/22 [History] Nifedipine [Procardia Xl] 30 mg PO DAILY 02/09/22 [History] Omeprazole 20 mg PO DAILY 02/09/22 [History] Simvastatin 40 mg PO HS 02/09/22 [History] Magnesium Glycinate 400 mg PO DAILY 01/16/24 [History] Hx Tetanus, Diphtheria Vaccination/Date Given: Yes Hx Influenza Vaccination/Date Given: Yes Hx Pneumococcal Vaccination/Date Given: Yes Immunizations Up to Date: Yes Travel Risk - International Travel Have you traveled outside of the country in past 3 weeks: No - Emerging Infectious Disease Are you exhibiting symptoms associated with any current EIDs: Yes Symptoms: Cough: New Onset, Shortness of Breath - Review of Systems Constitutional: No Symptoms, No Fever, No Chills Eyes: No Symptoms Ears, Nose, & Throat: No Symptoms Respiratory: No Symptoms, No Cough, No Dyspnea Cardiac: No Symptoms, No Chest Pain, No Edema, No Syncope Abdominal/Gastrointestinal: No Symptoms, No Abdominal Pain, No Nausea, No Vomiting, No Diarrhea Genitourinary Symptoms: No Symptoms, No Dysuria Musculoskeletal: No Symptoms, No Back Pain, No Neck Pain Skin: No Symptoms, No Rash Neurological: No Symptoms, No Dizziness, No Focal Weakness, No Sensory Changes Psychological: No Symptoms Endocrine: No Symptoms Hematologic/Lymphatic: No Symptoms Immunological/Allergic: No Symptoms All Other Systems: Reviewed and Negative - Past Medical History Pertinent Past Medical History: Yes Neurological History: No Pertinent History ENT History: No Pertinent History Cardiac History: High Cholesterol, Hypertension Respiratory History: COPD Endocrine Medical History: Hypothyroidism Musculoskeletal History: Arthritis, Osteoporosis GI Medical History: Gallbladder Disease History: No Pertinent History Psycho-Social History: No Pertinent History Female Reproductive Disorders: No Pertinent History - Past Surgical History Past Surgical History: Yes Neuro Surgical History: No Pertinent History Cardiac: No Pertinent History Respiratory: No Pertinent History Gastrointestinal: Cholecystectomy Genitourinary: No Pertinent History Musculoskeletal: No Pertinent History Female Surgical History: No Pertinent History Other Surgical History: upper and lower scopes - Social History Smoking Status: Current every day smoker How long have you smoked: 50 + years Exposure to second hand smoke: Yes Drug Use: none Patient Lives Alone: No - Nursing Vital Signs Nursing Vital Signs: Initial Vital Signs Temperature 103.2 F 01/16/24 05:54 Pulse Rate 102 H 01/16/24 05:54 Respiratory Rate 01/16/24 05:54 Blood Pressure 128/62 01/16/24 05:54 O2 Sat by Pulse Oximetry 92 L 01/16/24 05:54 Pain Scale Pain Intensity 0 - Physical Exam General Appearance: no apparent distress, alert Eye Exam: PERRL/EOMI Ears, Nose, Throat Exam: hearing grossly normal, normal ENT inspection, normal pharynx Neck Exam: normal inspection, supple, full range of motion Respiratory Exam: diminished breath sounds, wheezing Cardiovascular/Chest Exam: normal heart sounds, regular rate/rhythm Abdominal/Gastrointestinal Exam: soft, No tenderness, No distention, No mass Extremity Exam: non-tender, normal range of motion, normal inspection, no calf tenderness, no pedal edema Neurologic Exam: alert, oriented x 3, cooperative, homicide detective II-XII nml as tested, sensation nml, No motor deficits Skin Exam: normal color, warm, No dry Lymphatic Exam: No adenopathy SpO2 Interpretation: normal SpO2: 92 O2 Delivery: Room Air - Course Nursing assessment & vital signs reviewed: Yes EKG Interpreted by Me: RATE (102), Sinus Tach, NORMAL AXIS, NORMAL INTERVALS Ordered Tests: Active Orders 24 hr Category Date Time Status Teacher Of The Sight Impaired STAT Care 01/16/24 06:18 Active EKG-ER Only STAT Care 01/16/24 06:18 Active IV Insertion STAT Care 01/16/24 06:18 Active Pulse Oximetry (ED) STAT Care 01/16/24 06:18 Active BLOOD CULTURE Stat Lab 01/16/24 06:30 Received CBC W DIFF Stat Lab 01/16/24 06:37 Completed CMP Stat Lab 01/16/24 06:37 Received D-DIMER QUANTITATIVE Stat Lab 01/16/24 06:30 Received Lactic Acid Stat Lab 01/16/24 06:47 Completed NT PRO BNPII Stat Lab 01/16/24 06:37 Received TROPONIN Stat Lab 01/16/24 06:37 Received UA W/RFX UR CULTURE Stat Lab 01/16/24 06:18 Ordered Medication Summary Generic Name Dose Route Start Last Admin Trade Name Freq PRN Reason Stop Dose Admin Azithromycin 500 mg in 250 mls @ 250 mls/hr 01/16/24 06:20 Zithromax 500 Mg/ 250 Ml Nacl Premix IV 01/16/24 07:19 STAT STA Discontinued Medications Generic Name Dose Route Start Last Admin Trade Name Freq PRN Reason Stop Dose Admin Acetaminophen 975 mg 01/16/24 06:18 01/16/24 06:30 Acetaminophen 325 Mg Tablet PO 01/16/24 06:19 975 mg STAT STA Administration Acetaminophen Confirm 01/16/24 06:27 Acetaminophen 325 Mg Tablet Administered 01/16/24 06:28 Dose 975 mg .ROUTE .STK-MED ONE Albuterol/Ipratropium 3 ml 01/16/24 06:19 01/16/24 06:29 Ipratropium/Albuterol Sulfate 3 Ml Ampul.Neb IH 01/16/24 06:20 Not Given STAT ONE Methylprednisolone Sodium 0 mg 01/16/24 06:19 01/16/24 06:28 Succinate 125 mg/ Sterile IV 01/16/24 06:20 Not Given Water 2 ml STAT ONE Ceftriaxone Sodium 2 gm in 100 mls @ 200 mls/hr 01/16/24 06:20 01/16/24 06:35 Rocephin 2 Gm/100 Ml Nacl IV 01/16/24 06:49 200 mls/hr STAT ONE 200 mls/hr Administration Ceftriaxone Sodium Confirm 01/16/24 06:27 Rocephin 2 Gm/100 Ml Nacl Administered 01/16/24 06:28 Dose 2 gm in 100 mls @ ud IV .STK-MED ONE Lab/Rad Data: Laboratory Result Diagrams 01/16/24 06:37 Laboratory Results 01/16/24 01/16/24 Range/Units 06:47 06:37 WBC 9.0 (4.0-10.5) x10^3/uL RBC 4.81 (4.1-5.4) x10^6/uL Hgb 13.5 (12.0-16.0) g/dL Hct 41.9 (35-47) % MCV 87.1 (78-100) fL MCH 28.1 (26-32) pg MCHC 32.2 (32-36) g/dL RDW 21.5 H (11.5-14.0) % Plt Count 270 (150-450) x10^3/uL MPV 11.3 H (7.5-11.0) fL Gran % 83.6 H (36.0-66.0) % Immature Gran % (Auto) 1.2 H (0.00-0.4) % Nucleat RBC Rel Count 0.0 (0.00-0.1) % Eos # (Auto) 0 (0-0.5) x10^3/uL Immature Gran # (Auto) 0.11 H (0.00-0.03) x10^3u/L Absolute Lymphs (auto) 0.99 L (1.0-4.6) x10^3/uL Absolute Monos (auto) 0.35 (0.0-1.3) x10^3/uL Absolute Nucleated RBC 0.00 (0.00-0.01) x10^3u/L Lymphocytes % 11.0 L (24.0-44.0) % Monocytes % 3.9 (0.0-12.0) % Eosinophils % 0.0 (0.00-5.0) % Basophils % 0.3 (0.0-0.4) % Absolute Granulocytes 7.54 H (1.4-6.9) x10^3/uL Basophils # 0.03 (0-0.4) x10^3/uL Lactic Acid 1.4 (0.4-2.0) - Progress Progress: improved Air Movement: good Progress Note: It is currently the change of shift. Results pending. Patient endorsed to [facility] physician Dr. Lagos for final disposition. However at this point it appears we will be admitting patient for further evaluation and treatment. Complexity problem addressed is moderate acute complicated No critical care time Complex of data reviewed and analyzed is extensive. Test ordered test reviewed results analyzed and correlated clinically with history and physical exam. We will be speaking to hospitalist for admission and management. Risk of complication and or risk of morbidity/mortality of patient management is high. Patient will be hospitalized for further evaluation and treatment. Vital stable. Antipyretic administered. Results pending. Plan of care estab lished for shared decision making. No social determinants of health present to impede follow-up. Portions of this note were created with voice recognition technology. There may be grammatical, spelling, punctuation or sound alike errors 01/16/24 06:53 Blood Culture(s) Obtained: Yes Antibiotics given: Yes Counseled pt/family regarding: lab results, diagnosis, rad results - Departure Departure Disposition: Observation Clinical Impression: COPD exacerbation, Hypoxia, Fever Condition: Stable Critical Care Time: No Referrals: ZAN RENEE MD [Primary Care Provider] - Follow up/PCP as directed Instructions: Chronic Obstructive Pulmonary Disease
[2024-01-16] MEDS: solu-MEDROL 125 MG, Sterile H2O 10 ml 2 ML IV ONE (06:28)
[2024-01-16] MEDS: DUONEB 0.5-3 MG/3 ml Neb IH ONE (06:29)
[2024-01-16] MEDS: TYLENOL 325 MG PO STA (06:30)
[2024-01-16] MEDS: ROCEPHIN 2 GM/100 ML NACL 2 GM/100 ML IVPB IV ONE (06:35)
[2024-01-16 06:43] LABS: Absolute Neutrophil Ct (ANC) 7.54 x10^3/uL (1.4-6.9); BASOPHIL % 0.3 % (0.0-0.4); Basophil (Absolute #) 0.03 x10^3/uL (0-0.4); Eosinophil (Absolute #) 0 x10^3/uL (0-0.5); Hematocrit 41.9 % (35-47); Hemoglobin 13.5 g/dL (12.0-16.0); IMMATURE GRAN # 0.11 x10^3u/L (0.00-0.03); IMMATURE GRAN % 1.2 % (0.00-0.4); Lymphocyte (Absolute #) 0.99 x10^3/uL (1.0-4.6); Mean Cell Volume 87.1 fL (78-100); Mean Corpuscular Hemoglobin 28.1 pg (26-32); Mean Corpuscular Hgb Concent. 32.2 g/dL (32-36); Mean Platelet Volume 11.3 fL (7.5-11.0); Monocyte (Absolute #) 0.35 x10^3/uL (0.0-1.3); Monocytes % 3.9 % (0.0-12.0); Neutrophil % 83.6 % (36.0-66.0); Platelet Count 270 x10^3/uL (150-450); Red Blood Count 4.81 x10^6/uL (4.1-5.4); Red Cell Distribution Width 21.5 % (11.5-14.0)
[2024-01-16 06:59] LABS: ALBUMIN 3.4 g/dL (3.5-5.0); ANION GAP 13.3 MEQ/L (5-15); BILIRUBIN,TOTAL 1.2 mg/dL (0.2-1.3); Calcium 8.6 mg/dL (8.4-10.2); Creatinine 1 0.88 mg/dL (0.52-1.04); EST GLOMERULAR FILTRATION RATE 67.2 ML/MIN; Potassium 3.9 mmol/L (3.5-5.1); Total Protein 6.6 g/dL (6.3-8.2)
[2024-01-16] MEDS ORDERED: Zithromax 500 MG/ 250 ML NaCl Premix 500 MG/250 ML IVPB IV ONE (07:00)
[2024-01-16] MEDS: Zithromax 500 MG/ 250 ML NaCl Premix 500 MG/250 ML IVPB IV STA (07:03)
[2024-01-16 07:20] LABS: INFLUENZA A NEGATIVE (NEGATIVE); INFLUENZA B NEGATIVE (NEGATIVE); RESPIRATORY SYNCTIAL VIRUS NEGATIVE (NEGATIVE); SARS-CoV-2 Xpert Express NEGATIVE (NEGATIVE)
[2024-01-16 07:31] LABS: TROPONIN 0.056 ng/mL (0.000-0.033)
[2024-01-16 08:14] LABS: Appearance Turbid (Clear); Bacteria Few /HPF (None Seen); Bilirubin Small (Negative); Blood Negative (Negative); Epithelial Cells Moderate /HPF (None Seen); Glucose, Urine Negative (Negative); Ketones Trace (Negative); Leukocyte Esterase Trace (Negative); Nitrite Negative (Negative); Protein,Urine Dip 100 (Negative); RBC 0-2 /HPF (0-5); Specific Gravity 1.025 (1.005-1.030); WBC 0-2 /HPF (0-5)
[2024-01-16 08:15] LABS: ADD URINE CULTURE? YES (NO); Hyaline Casts 20-50 /LPF (0-2)
--- NOTE | 2024-01-16 08:38 | XRAY ---
Indication: Short of breath, fatigue, fever, and chills. Multiple contiguous axial images obtained through the chest using 80 cc Isovue 370 contrast and PE protocol. Comparison: None Good opacification pulmonary arteries to include the lobar and segmental branches. No pulmonary embolus. Heart not enlarged. Aorta is mildly arteriosclerotic without aneurysm/dissection. Small mediastinal and tiny right hilar calcified nodes. No pathologic mediastinal/hilar lymphadenopathy. Lungs demonstrate mild diffuse pulmonary emphysema and minimal bibasilar dependent atelectasis. No suspicious pulmonary mass/nodule, infiltrate, or effusion. Bony thorax intact. Limited upper abdomen demonstrate fatty liver, 15 cm splenomegaly, and previous CT proven 3.3 x 4.2 cm left adrenal adenoma. Impression: 1. Negative pulmonary embolus. No acute cardiopulmonary abnormalities. 2. Incidental pulmonary emphysema, arteriosclerotic disease, fatty liver, splenomegaly, left adrenal adenoma, and old granulomatous disease.
--- NOTE | 2024-01-16 12:14 | PCM.HP ---
History of Present Illness - Chief Complaint Chief Complaint: COPD EXACERBATION, HYPOXIA, FEVER, ELEVATED TROPONINS Date: 01/16/24 History of Present Illness: is a 78 year old female with PMHX of hyperlipidemia, HTn, COPD, hypothyroidism, OA, and daily 1ppd smoker. She wears 2lNC baseline at [facility]. She reports she was to have an appointment with hematology today for further evaluation of a blood disorder. Pt presents to ED via ambulance today. She reports cough x 3-4 days without production, increase in shortness of breath this am. She has also had associated sweating and chills x3 days. In ER O2 89%- 90% on RA so placed on 2 L NC- O2 improved to 93% Patient had Solu-Medrol and albuterol en route. Patient was febrile at 103 ojn arrival. Symptoms started at approximately 5 AM. Symptoms have been constant. Symptoms are moderate in intensity. Symptoms worse with activity. Symptoms improved with rest and with application of oxygen. No active chest pain. Patient otherwise feels well. She voices no other complaints or concerns at this time. She received steroids, antibiotics, and breathing treatments in ER. Will continue this same plan of care. She reports she is already feeling much better. - Review of Systems Constitutional: Fever, Chills Eyes: No Symptoms Ears, Nose, & Throat: No Symptoms Respiratory: Cough, Short Of Breath Cardiac: No Chest Pain, No Edema, No Syncope Abdominal/Gastrointestinal: No Abdominal Pain, No Nausea, No Vomiting, No Diarrhea Genitourinary Symptoms: No Dysuria Musculoskeletal: No Back Pain, No Neck Pain Skin: No Rash Neurological: No Dizziness, No Focal Weakness, No Sensory Changes Psychological: No Symptoms Endocrine: No Symptoms Hematologic/Lymphatic: No Symptoms Immunological/Allergic: No Symptoms Medications & Allergies Home Medications: Home Medication List Alendronate Sodium 70 mg [Fosamax 70 MG] 70 mg PO WEEKLY 02/09/22 [History Confirmed 01/16/24] Chlorthalidone 25 mg PO DAILY 02/09/22 [History Confirmed 01/16/24] Levothyroxine Sodium 88 mcg PO DAILY 02/09/22 [History Confirmed 01/16/24] Nifedipine [Procardia Xl] 30 mg PO DAILY 02/09/22 [History Confirmed 01/16/24] Simvastatin 40 mg PO HS 02/09/22 [History Confirmed 01/16/24] Aspirin EC 81 mg [Ecotrin 81 mg] 81 mg PO DAILY #0 02/07/23 [Rx Confirmed 01/16/24] Cholecalciferol (Vitamin D3) [Vitamin D3] 25 mcg PO DAILY 01/16/24 [History Confirmed 01/16/24] Magnesium Glycinate 400 mg PO DAILY 01/16/24 [History Confirmed 01/16/24] Potassium Chloride 99 mg PO DAILY 01/16/24 [History Confirmed 01/16/24] Allergies/Adverse Reactions: Allergies Allergy/AdvReac Type Severity Reaction Status Date / Time No Known Drug Allergies Allergy Verified 01/16/24 05:54 - Past Medical History Past Medical History: Yes Neurological History: No Pertinent History ENT History: No Pertinent History Cardiac History: High Cholesterol, Hypertension Respiratory History: COPD Endocrine Medical History: Hypothyroidism Musculoskelatal History: Arthritis, Osteoporosis GI Medical History: No Pertinent History History: No Pertinent History Pyscho-Social History: No Pertinent History Reproductive Disorders: No Pertinent History - Past Surgical History Past Surgical History: Yes Neuro Surgical History: No Pertinent History Cardiac History: No Pertinent History Respiratory Surgery: No Pertinent History GI Surgical History: Cholecystectomy Genitourinary Surgical Hx: No Pertinent History Musculskeletal Surgical Hx: No Pertinent History Female Surgical History: No Pertinent History Other Surgical History: upper and lower scopes - Social History Smoking Status: Current every day smoker How long have you smoked: 60 YEARS Exposure to second hand smoke: Yes Alcohol: None Drug Use: none - Social Determinants of Health Will the patient participate in the screening: Yes Do you worry about a steady place to live?: No Do you have any problems with any of the following?: No known problems In the past 12 months,have you had to go without utilities?: No Have you or anyone in your house had to go without enough: No Transportation Issues: No Has anyone in your support network made you feel unsafe?: No Does the patient want assistance with any of the above?: No - Physical Exam Vital Signs: Vital Signs - 24 hr Temp Pulse Resp BP BP Pulse Ox 01/16/24 10:25 96.1 F 74 22 131/62 93 L 01/16/24 10:21 99 01/16/24 08:30 77 21 141/66 91 L 01/16/24 08:00 81 25 H 142/62 92 L 01/16/24 07:47 98.5 F 80 19 133/62 95 01/16/24 07:46 82 13 133/62 01/16/24 07:10 82 26 H 135/71 92 L 01/16/24 06:56 92 L 01/16/24 06:27 28 H 93 L 01/16/24 06:18 92 L 01/16/24 06:00 86 22 122/45 93 L 01/16/24 05:54 103.2 F 102 H 24 128/62 92 L General Appearance: no apparent distress, alert Neurologic Exam: alert, oriented x 3, cooperative, normal mood/affect, nml cerebellar function, nml station & gait, sensation nml, No motor deficits Eye Exam: PERRL/EOMI, eyes nml inspection Ears, Nose, Throat Exam: normal ENT inspection, TMs normal, pharynx normal, moist mucous membranes Neck Exam: normal inspection, non-tender, supple, full range of motion Respiratory Exam: normal breath sounds, lungs clear, crackles/rales (BLLL), No respiratory distress Cardiovascular Exam: regular rate/rhythm, normal heart sounds, normal peripheral pulses Gastrointestinal/Abdomen Exam: soft, normal bowel sounds, No tenderness, No mass Back Exam: normal inspection, normal range of motion, No CVA tenderness, No vertebral tenderness Extremity Exam: normal inspection, normal range of motion, pelvis stable Skin Exam: normal color, warm, dry, No rash Lymphatic Exam: No adenopathy Results - Labs Lab/Micro Results: Lab Results-Last 24 Hours 01/16/24 01/16/24 01/16/24 Range/Units 06:30 06:37 06:37 WBC 9.0 (4.0-10.5) x10^3/uL RBC 4.81 (4.1-5.4) x10^6/uL Hgb 13.5 (12.0-16.0) g/dL Hct 41.9 (35-47) % MCV 87.1 (78-100) fL MCH 28.1 (26-32) pg MCHC 32.2 (32-36) g/dL RDW 21.5 H (11.5-14.0) % Plt Count 270 (150-450) x10^3/uL MPV 11.3 H (7.5-11.0) fL Gran % 83.6 H (36.0-66.0) % Immature Gran % (Auto) 1.2 H (0.00-0.4) % Nucleat RBC Rel Count 0.0 (0.00-0.1) % Eos # (Auto) 0 (0-0.5) x10^3/uL Immature Gran # (Auto) 0.11 H (0.00-0.03) x10^3u/L Absolute Lymphs (auto) 0.99 L (1.0-4.6) x10^3/uL Absolute Monos (auto) 0.35 (0.0-1.3) x10^3/uL Absolute Nucleated RBC 0.00 (0.00-0.01) x10^3u/L Lymphocytes % 11.0 L (24.0-44.0) % Monocytes % 3.9 (0.0-12.0) % Eosinophils % 0.0 (0.00-5.0) % Basophils % 0.3 (0.0-0.4) % Absolute Granulocytes 7.54 H (1.4-6.9) x10^3/uL Basophils # 0.03 (0-0.4) x10^3/uL D-Dimer 6.31 H* (0.0-0.50) mg/L Sodium 132 L (135-145) mmol/L Potassium 3.9 (3.5-5.1) mmol/L Chloride 102 (98-107) mmol/L Carbon Dioxide 21 L (22-30) mmol/L Anion Gap 13.3 (5-15) MEQ/L BUN 22 H (7-17) mg/dL Creatinine 0.88 (0.52-1.04) mg/dL Estimated GFR 67.2 ML/MIN Glucose 167 H (74-106) mg/dL Lactic Acid (0.4-2.0) Calcium 8.6 (8.4-10.2) mg/dL Total Bilirubin 1.20 (0.2-1.3) mg/dL AST 50 H (14-36) U/L ALT 26 (0-35) U/L Alkaline Phosphatase 80 (38-126) U/L Troponin I (0.000-0.033) ng/mL NT-Pro-B Natriuret Pep (<300) pg/mL Serum Total Protein 6.6 (6.3-8.2) g/dL Albumin 3.4 L (3.5-5.0) g/dL Urine Color (Yellow) Urine Appearance (Clear) Urine pH (4.6-8.0) Ur Specific Mascot (1.005-1.030) Urine Protein (Negative) Urine Glucose (UA) (Negative) mg/dL Urine Ketones (Negative) Urine Blood (Negative) Urine Nitrite (Negative) Urine Bilirubin (Negative) Urine Urobilinogen (0.2) mg/dL Ur Leukocyte Esterase (Negative) U Hyaline Cast (Auto) (0-2) /LPF Urine Microscopic RBC (0-5) /HPF Urine Microscopic WBC (0-5) /HPF Ur Epithelial Cells (None Seen) /HPF Urine Bacteria (None Seen) /HPF Urine Culture Reflexed (NO) Influenza Type A Ag (NEGATIVE) Influenza Type B Ag (NEGATIVE) RSV (PCR) (NEGATIVE) SARS-CoV-2 (PCR) (NEGATIVE) 01/16/24 01/16/24 01/16/24 Range/Units 06:37 06:37 06:47 WBC (4.0-10.5) x10^3/uL RBC (4.1-5.4) x10^6/uL Hgb (12.0-16.0) g/dL Hct (35-47) % MCV (78-100) fL MCH (26-32) pg MCHC (32-36) g/dL RDW (11.5-14.0) % Plt Count (150-450) x10^3/uL MPV (7.5-11.0) fL Gran % (36.0-66.0) % Immature Gran % (Auto) (0.00-0.4) % Nucleat RBC Rel Count (0.00-0.1) % Eos # (Auto) (0-0.5) x10^3/uL Immature Gran # (Auto) (0.00-0.03) x10^3u/L Absolute Lymphs (auto) (1.0-4.6) x10^3/uL Absolute Monos (auto) (0.0-1.3) x10^3/uL Absolute Nucleated RBC (0.00-0.01) x10^3u/L Lymphocytes % (24.0-44.0) % Monocytes % (0.0-12.0) % Eosinophils % (0.00-5.0) % Basophils % (0.0-0.4) % Absolute Granulocytes (1.4-6.9) x10^3/uL Basophils # (0-0.4) x10^3/uL D-Dimer (0.0-0.50) mg/L Sodium (135-145) mmol/L Potassium (3.5-5.1) mmol/L Chloride (98-107) mmol/L Carbon Dioxide (22-30) mmol/L Anion Gap (5-15) MEQ/L BUN (7-17) mg/dL Creatinine (0.52-1.04) mg/dL Estimated GFR ML/MIN Glucose (74-106) mg/dL Lactic Acid 1.4 (0.4-2.0) Calcium (8.4-10.2) mg/dL Total Bilirubin (0.2-1.3) mg/dL AST (14-36) U/L ALT (0-35) U/L Alkaline Phosphatase (38-126) U/L Troponin I 0.056 H* (0.000-0.033) ng/mL NT-Pro-B Natriuret Pep 1010 (<300) pg/mL Serum Total Protein (6.3-8.2) g/dL Albumin (3.5-5.0) g/dL Urine Color (Yellow) Urine Appearance (Clear) Urine pH (4.6-8.0) Ur Specific [place] (1.005-1.030) Urine Protein (Negative) Urine Glucose (UA) (Negative) mg/dL Urine Ketones (Negative) Urine Blood (Negative) Urine Nitrite (Negative) Urine Bilirubin (Negative) Urine Urobilinogen (0.2) mg/dL Ur Leukocyte Esterase (Negative) U Hyaline Cast (Auto) (0-2) /LPF Urine Microscopic RBC (0-5) /HPF Urine Microscopic WBC (0-5) /HPF Ur Epithelial Cells (None Seen) /HPF Urine Bacteria (None Seen) /HPF Urine Culture Reflexed (NO) Influenza Type A Ag NEGATIVE (NEGATIVE) Influenza Type B Ag NEGATIVE (NEGATIVE) RSV (PCR) NEGATIVE (NEGATIVE) SARS-CoV-2 (PCR) NEGATIVE (NEGATIVE) 01/16/24 Range/Units 07:30 WBC (4.0-10.5) x10^3/uL RBC (4.1-5.4) x10^6/uL Hgb (12.0-16.0) g/dL Hct (35-47) % MCV (78-100) fL MCH (26-32) pg MCHC (32-36) g/dL RDW (11.5-14.0) % Plt Count (150-450) x10^3/uL MPV (7.5-11.0) fL Gran % (36.0-66.0) % Immature Gran % (Auto) (0.00-0.4) % Nucleat RBC Rel Count (0.00-0.1) % Eos # (Auto) (0-0.5) x10^3/uL Immature Gran # (Auto) (0.00-0.03) x10^3u/L Absolute Lymphs (auto) (1.0-4.6) x10^3/uL Absolute Monos (auto) (0.0-1.3) x10^3/uL Absolute Nucleated RBC (0.00-0.01) x10^3u/L Lymphocytes % (24.0-44.0) % Monocytes % (0.0-12.0) % Eosinophils % (0.00-5.0) % Basophils % (0.0-0.4) % Absolute Granulocytes (1.4-6.9) x10^3/uL Basophils # (0-0.4) x10^3/uL D-Dimer (0.0-0.50) mg/L Sodium (135-145) mmol/L Potassium (3.5-5.1) mmol/L Chloride (98-107) mmol/L Carbon Dioxide (22-30) mmol/L Anion Gap (5-15) MEQ/L BUN (7-17) mg/dL Creatinine (0.52-1.04) mg/dL Estimated GFR ML/MIN Glucose (74-106) mg/dL Lactic Acid (0.4-2.0) Calcium (8.4-10.2) mg/dL Total Bilirubin (0.2-1.3) mg/dL AST (14-36) U/L ALT (0-35) U/L Alkaline Phosphatase (38-126) U/L Troponin I (0.000-0.033) ng/mL NT-Pro-B Natriuret Pep (<300) pg/mL Serum Total Protein (6.3-8.2) g/dL Albumin (3.5-5.0) g/dL Urine Color Dark Yellow A (Yellow) Urine Appearance Turbid A (Clear) Urine pH 5.0 (4.6-8.0) Ur Specific [place] 1.025 (1.005-1.030) Urine Protein 100 A (Negative) Urine Glucose (UA) Negative (Negative) mg/dL Urine Ketones Trace A (Negative) Urine Blood Negative (Negative) Urine Nitrite Negative (Negative) Urine Bilirubin Small A (Negative) Urine Urobilinogen 1.0 A (0.2) mg/dL Ur Leukocyte Esterase Trace A (Negative) U Hyaline Cast (Auto) 20-50 (0-2) /LPF Urine Microscopic RBC 0-2 (0-5) /HPF Urine Microscopic WBC 0-2 (0-5) /HPF Ur Epithelial Cells Moderate A (None Seen) /HPF Urine Bacteria Few A (None Seen) /HPF Urine Culture Reflexed YES (NO) Influenza Type A Ag (NEGATIVE) Influenza Type B Ag (NEGATIVE) RSV (PCR) (NEGATIVE) SARS-CoV-2 (PCR) (NEGATIVE) - Radiology Impressions Radiology Exams & Impressions: Radiology Procedures Category Date Time Status CHEST WITH CONTRAST [CT] Stat Exams 01/16/24 07:09 Completed - Other Procedures and Tests Respiratory Therapy 01/16/24 10:21 Oxygen Nasal Cannula 2 lpm Respiratory Therapy Consult ONCE 01/16/24 10:56 RT Screen per Nursing Assess ONCE Smoking Cessation Education ONCE Assessment/Plan (1) COPD exacerbation Current Visit: Yes Status: Acute Assessment & Plan: - antibiotics, steroids, duonebs, advair - RT eval and treat - On 2lNC 93%, Baseline 2LNC at night. - See CTA results below Code(s): J44.1 - CHRONIC OBSTRUCTIVE PULMONARY DISEASE W (ACUTE) EXACERBATION (2) Elevated d-dimer Current Visit: Yes Status: Acute Assessment & Plan: - D-Dimer 6.31 - Ct chest Impression: 1. Negative pulmonary embolus. No acute cardiopulmonary abnormalities. 2. Incidental pulmonary emphysema, arteriosclerotic disease, fatty liver, splenomegaly, left adrenal adenoma, and old granulomatous disease. Code(s): R79.89 - OTHER SPECIFIED ABNORMAL FINDINGS OF BLOOD CHEMISTRY (3) Hyponatremia Current Visit: Yes Status: Acute Assessment & Plan: - Mild NA= 132- trend Code(s): E87.1 - HYPO-OSMOLALITY AND HYPONATREMIA (4) Elevated troponin Current Visit: Yes Status: Acute Assessment & Plan: - Trop 0.056, 0.067- trend - demand ischemia - ekg - tele Code(s): R79.89 - OTHER SPECIFIED ABNORMAL FINDINGS OF BLOOD CHEMISTRY (5) UTI (urinary tract infection) Current Visit: Yes Status: Acute Assessment & Plan: - IV antibiotics - UC pending Code(s): N39.0 - URINARY TRACT INFECTION, SITE NOT SPECIFIED (6) Class 1 obesity with body mass index (BMI) of 33.0 to 33.9 in adult Current Visit: Yes Status: Chronic Assessment & Plan: - advised diet and exercise control Code(s): E66.9 - OBESITY, UNSPECIFIED; Z68.33 - BODY MASS INDEX [BMI] 33.0-33.9, ADULT (7) HTN (hypertension) Current Visit: Yes Status: Chronic Assessment & Plan: - stable continue home meds Code(s): I10 - ESSENTIAL (PRIMARY) HYPERTENSION (8) Smoker Current Visit: Yes Status: Chronic Assessment & Plan: - advised cessation - nicotine patch Code(s): F17.200 - NICOTINE DEPENDENCE, UNSPECIFIED, UNCOMPLICATED (9) Hypothyroidism Current Visit: Yes Status: Chronic Assessment & Plan: - continue synthroid - TSH in AM VTE: Lovenox Next of KIN: Jackie Garcia [phone] D/C plan: 1-2 days Code status: SCO/DNR Code(s): E03.9 - HYPOTHYROIDISM, UNSPECIFIED
[2024-01-16] MEDS ORDERED: MEDICATION INTERVENTION MC SCH (12:45)
[2024-01-16] MEDS: CHLORTHALIDONE PO SCH (13:46)
[2024-01-16] MEDS: SYNTHROID 88 MCG PO SCH (13:46)
[2024-01-16] MEDS: MAG-OX 400 PO SCH (13:46)
[2024-01-16] MEDS: ECOTRIN 81 MG PO SCH (13:46)
[2024-01-16] MEDS: VITAMIN D PO SCH (13:46)
[2024-01-16] MEDS: Adalat CC 30 MG TABLET PO SCH (13:46)
[2024-01-16] MEDS: Nicoderm CQ 21 MG TOP SCH (13:47)
[2024-01-16] MEDS: ENOXAPARIN SODIUM SQ SCH (13:47)
[2024-01-16] MEDS: DUONEB 0.5-3 MG/3 ml Neb IH SCH (14:23)
[2024-01-16] MEDS: Advair Hfa 230/21 Mcg COMMON CANISTER IH SCH (18:38)
[2024-01-16] MEDS: ZOCOR 20MG PO SCH (21:17)
[2024-01-16] MEDS: solu-MEDROL 20 MG, Sterile H2O 10 ml 1 ML IV SCH (21:17)
[2024-01-17 04:46] LABS: Hematocrit 44.2 % (35-47); Mean Cell Volume 86.3 fL (78-100); Mean Corpuscular Hemoglobin 27.3 pg (26-32); Mean Corpuscular Hgb Concent. 31.7 g/dL (32-36); Mean Platelet Volume 11.4 fL (7.5-11.0); Platelet Count 280 x10^3/uL (150-450); Red Blood Count 5.12 x10^6/uL (4.1-5.4); Red Cell Distribution Width 21.5 % (11.5-14.0); White Blood Count 10.6 x10^3/uL (4.0-10.5)
[2024-01-17 06:05] LABS: ALBUMIN 3.4 g/dL (3.5-5.0); ANION GAP 11.3 MEQ/L (5-15); BILIRUBIN,TOTAL 0.7 mg/dL (0.2-1.3); Calcium 9.5 mg/dL (8.4-10.2); Creatinine 1 0.78 mg/dL (0.52-1.04); EST GLOMERULAR FILTRATION RATE 77.7 ML/MIN; Potassium 3.8 mmol/L (3.5-5.1); TSH, 3RD Generation 0.515 mIU/L (0.470-4.680); Total Protein 6.7 g/dL (6.3-8.2)
[2024-01-17] MEDS: Fosamax 70 MG PO SCH (06:06)
[2024-01-17 06:54] VITALS: RESP 16
[2024-01-17] MEDS: ROCEPHIN 1 GM / 100 ML NaCl 1 GM/100 ML IVPB IV SCH (07:07)
[2024-01-17 08:00] VITALS: BP 129/88; PULSE 75; TEMP 96.8; O2SAT 99
[2024-01-17] MEDS: Zithromax 500 MG/ 250 ML NaCl Premix 500 MG/250 ML IVPB IV SCH (09:07)
--- NOTE | 2024-01-17 09:13 | PCM.DS ---
Discharge Summary Date of Admission: 01/16/24 10:15 Date of Discharge: 01/17/24 Admitting Physician: HEIDY BERNAL MD Primary Care Provider: ZAN RENEE Allergies Allergies No Known Drug Allergies Allergy (Verified 01/16/24 05:54) Hospital Summary - Hospital Course Hospital Course: 01/16/24 is a 78 year old female with PMHX of hyperlipidemia, HTn, COPD, hypothyroidism, OA, and daily 1ppd smoker. She wears 2lNC baseline at [facility]. She r eports she was to have an appointment with hematology today for further evaluation of a blood disorder. Pt presents to ED via ambulance today. She reports cough x 3-4 days without production, increase in shortness of breath this am. She has also had associated sweating and chills x3 days. In ER O2 89%- 90% on RA so placed on 2 L NC- O2 improved to 93% Patient had Solu-Medrol and albuterol en route. Patient was febrile at 103 ojn arrival. Symptoms started at approximately 5 AM. Symptoms have been constant. Symptoms are moderate in intensity. Symptoms worse with activity. Symptoms improved with rest and with application of oxygen. No active chest pain. Patient otherwise feels well. Sh e voices no other complaints or concerns at this time. She received steroids, antibiotics, and breathing treatments in ER. Will continue this same plan of care. She reports she is already feeling much better. 01/17/24 Pt siting up in bed. She is no longer requiring oxygen- O2 97%. She states she normally only uses at night when needed. She is feeling much better and would like to go home today as it is her son's birthday and he is coming over to see her today. She d Will continue OP antibiotics and steroids. She does not want a f/u Op appointment with pulmonology and would like to discuss with Dr. Renee. She refused smoking cessation information and states she is not going to stop at her age. She denies CP, SOB, abd. pain, N/V/D. - Vitals & Intake/Output Vital Signs: Vital Signs Temperature 96.8 F 01/17/24 07:59 Pulse Rate 75 01/17/24 07:59 Respiratory Rate 16 01/17/24 07:59 Blood Pressure 129/88 04/25/24 07:59 O2 Sat by Pulse Oximetry 99 01/17/24 07:59 Intake & Output: Intake & Output 01/14/24 01/15/24 01/16/24 01/17/24 11:59 11:59 11:59 11:59 Intake Total 1760 Output Total 600 Balance 1160 Weight 91.3 kg - Lab Result Diagrams: 01/17/24 04:41 01/17/24 04:41 Lab Results-Last 24 Hrs: Lab Results-Last 24 Hours 01/16/24 01/16/24 01/16/24 Range/Units 06:30 11:30 15:17 WBC (4.0-10.5) x10^3/uL RBC (4.1-5.4) x10^6/uL Hgb (12.0-16.0) g/dL Hct (35-47) % MCV (78-100) fL MCH (26-32) pg MCHC (32-36) g/dL RDW (11.5-14.0) % Plt Count (150-450) x10^3/uL MPV (7.5-11.0) fL D-Dimer 6.31 H* (0.0-0.50) mg/L Sodium (135-145) mmol/L Potassium (3.5-5.1) mmol/L Chloride (98-107) mmol/L Carbon Dioxide (22-30) mmol/L Anion Gap (5-15) MEQ/L BUN (7-17) mg/dL Creatinine (0.52-1.04) mg/dL Estimated GFR ML/MIN Glucose (74-106) mg/dL Calcium (8.4-10.2) mg/dL Magnesium (1.6-2.3) mg/dL Total Bilirubin (0.2-1.3) mg/dL AST (14-36) U/L ALT (0-35) U/L Alkaline Phosphatase (38-126) U/L Troponin I 0.067 H* 0.039 H* (0.000-0.033) ng/mL Serum Total Protein (6.3-8.2) g/dL Albumin (3.5-5.0) g/dL TSH 3rd Generation (0.470-4.680) mIU/L 01/17/24 01/17/24 Range/Units 04:41 04:41 WBC 10.6 H (4.0-10.5) x10^3/uL RBC 5.12 (4.1-5.4) x10^6/uL Hgb 14.0 (12.0-16.0) g/dL Hct 44.2 (35-47) % MCV 86.3 (78-100) fL MCH 27.3 (26-32) pg MCHC 31.7 L (32-36) g/dL RDW 21.5 H (11.5-14.0) % Plt Count 280 (150-450) x10^3/uL MPV 11.4 H (7.5-11.0) fL D-Dimer (0.0-0.50) mg/L Sodium 138 (135-145) mmol/L Potassium 3.8 (3.5-5.1) mmol/L Chloride 103 (98-107) mmol/L Carbon Dioxide 27 (22-30) mmol/L Anion Gap 11.3 (5-15) MEQ/L BUN 26 H (7-17) mg/dL Creatinine 0.78 (0.52-1.04) mg/dL Estimated GFR 77.7 ML/MIN Glucose 190 H (74-106) mg/dL Calcium 9.5 (8.4-10.2) mg/dL Magnesium 2.0 (1.6-2.3) mg/dL Total Bilirubin 0.70 (0.2-1.3) mg/dL AST 55 H (14-36) U/L ALT 29 (0-35) U/L Alkaline Phosphatase 75 (38-126) U/L Troponin I (0.000-0.033) ng/mL Serum Total Protein 6.7 (6.3-8.2) g/dL Albumin 3.4 L (3.5-5.0) g/dL TSH 3rd Generation 0.515 (0.470-4.680) mIU/L Micro Results-Entire Visit: Microbiology 01/16/24 07:30 Urine Culture - Preliminary Urine, Void <10K NORMAL SKIN JAY PROBABLE SKIN CONTAMINANT - Radiology Exams Ordered Rad Exams-Entire Visit: Radiology Procedures Category Date Time Status CHEST WITH CONTRAST [CT] Stat Exams 01/16/24 07:09 Completed - Procedures and Test Procedures and Tests throughout Hospitalization: Therapy Orders & Screens 01/16/24 10:21 Oxygen Nasal Cannula 2 lpm Comment: Respiratory Therapy Consult ONCE Comment: Reason For Exam: 01/16/24 10:56 RT Screen per Nursing Assess ONCE Comment: Protocol Order Physician Instructions: Greater than 3 points order RT Admission Screen Reason For Exam: Triggered on Admission Diagnosis: COPD EXACERBATION, HYPOXIA, FEVER, ELEVATED TROPONINS Diagnosis: COPD EXACERBATION, HYPOXIA, FEVER, ELEVATED TROPONINS Pneumonia: No Home O2: Yes: HS PRN Asthma: No CHF: No Home CPAP/BIPAP: No Home Nebs/MDI: Yes Total Points: 10 Smoking Cessation Education ONCE Comment: Diagnosis: COPD EXACERBATION, HYPOXIA, FEVER, ELEVATED TROPONINS Smoking Status: Current every day smoker How long have you smoked: 60 YEARS Have you smoked in the past 12 months: Yes Approximately how many cigarettes per day: 1 PACK Do you dip or chew tobacco: No 01/16/24 12:23 Respiratory MDI BID Comment: Diagnosis: COPD EXACERBATION, HYPOXIA, FEVER, ELEVATED TROPONINS 01/16/24 12:25 RT Miscellaneous Order ROUTINE Comment: Physician Instructions: Reason For Exam: eval and treat Diagnosis: COPD EXACERBATION, HYPOXIA, FEVER, ELEVATED TROPONINS Discharge Exam General Appearance: no apparent distress, alert Neurologic Exam: alert, oriented x 3, cooperative, normal mood/affect, nml cerebellar function, sensation nml, No motor deficits Eye Exam: PERRL, EOMI, eyes nml inspection Ears, Nose, Throat Exam: normal ENT inspection, pharynx normal, moist mucous membranes Neck Exam: normal inspection, non-tender, supple, full range of motion Respiratory Exam: normal breath sounds, lungs clear, crackles/rales (RLL), No respiratory distress Cardiovascular Exam: regular rate/rhythm, normal heart sounds Gastrointestinal/Abdomen Exam: soft, No tenderness, No mass Pelvic Exam: deferred Rectal Exam: deferred Back Exam: normal inspection, normal range of motion, No CVA tenderness, No vertebral tenderness Extremity Exam: normal inspection, normal range of motion Skin Exam: normal color, warm, dry Final Diagnosis/Problem List - Final Discharge Diagnosis/Problem (1) COPD exacerbation Current Visit: Yes Status: Acute Code(s): J44.1 - CHRONIC OBSTRUCTIVE PULMONARY DISEASE W (ACUTE) EXACERBATION (2) Elevated d-dimer Current Visit: Yes Status: Acute Code(s): R79.89 - OTHER SPECIFIED ABNORMAL FINDINGS OF BLOOD CHEMISTRY (3) Hyponatremia Current Visit: Yes Status: Acute Code(s): E87.1 - HYPO-OSMOLALITY AND HYPONATREMIA (4) Elevated troponin Current Visit: Yes Status: Acute Code(s): R79.89 - OTHER SPECIFIED ABNORMAL FINDINGS OF BLOOD CHEMISTRY (5) UTI (urinary tract infection) Current Visit: Yes Status: Acute Code(s): N39.0 - URINARY TRACT INFECTION, SITE NOT SPECIFIED (6) Class 1 obesity with body mass index (BMI) of 33.0 to 33.9 in adult Current Visit: Yes Status: Chronic Code(s): E66.9 - OBESITY, UNSPECIFIED; Z68.33 - BODY MASS INDEX [BMI] 33.0-33.9, ADULT (7) HTN (hypertension) Current Visit: Yes Status: Chronic Code(s): I10 - ESSENTIAL (PRIMARY) HYPERTENSION (8) Smoker Current Visit: Yes Status: Chronic Code(s): F17.200 - NICOTINE DEPENDENCE, UNSPECIFIED, UNCOMPLICATED (9) Hypothyroidism Current Visit: Yes Status: Chronic Assessment & Plan: 1) COPD exacerbation Current Visit: Yes Status: Acute Assessment & Plan: - antibiotics, steroids, duonebs, advair - RT eval and treat - On 2lNC 93%, Baseline 2LNC at night. - See CTA results below 01/16 - RA - 97% today - Continue OP antibiotics and steroids Code(s): J44.1 - CHRONIC OBSTRUCTIVE PULMONARY DISEASE W (ACUTE) EXACERBATION (2) Elevated d-dimer Current Visit: Yes Status: Acute Assessment & Plan: - D-Dimer 6.31 - Ct chest Impression: 1. Negative pulmonary embolus. No acute cardiopulmonary abnormalities. 2. Incidental pulmonary emphysema, arteriosclerotic disease, fatty liver, splenomegaly, left adrenal adenoma, and old granulomatous disease. Code(s): R79.89 - OTHER SPECIFIED ABNORMAL FINDINGS OF BLOOD CHEMISTRY (3) Hyponatremia Current Visit: Yes Status: Acute Assessment & Plan: - Mild NA= 132- trend 01/16 - resolved Code(s): E87.1 - HYPO-OSMOLALITY AND HYPONATREMIA (4) Elevated troponin Current Visit: Yes Status: Acute Assessment & Plan: - Trop 0.056, 0.067- trend - demand ischemia - ekg - tele 01/16 - trop trended down Code(s): R79.89 - OTHER SPECIFIED ABNORMAL FINDINGS OF BLOOD CHEMISTRY (5) UTI (urinary tract infection) Current Visit: Yes Status: Acute Assessment & Plan: - IV antibiotics - UC pending 01/16 - UC shows skin contamination Code(s): N39.0 - URINARY TRACT INFECTION, SITE NOT SPECIFIED (6) Class 1 obesity with body mass index (BMI) of 33.0 to 33.9 in adult Current Visit: Yes Status: Chronic Assessment & Plan: - advised diet and exercise control Code(s): E66.9 - OBESITY, UNSPECIFIED; Z68.33 - BODY MASS INDEX [BMI] 33.0-33.9, ADULT (7) HTN (hypertension) Current Visit: Yes Status: Chronic Assessment & Plan: - stable continue home meds Code(s): I10 - ESSENTIAL (PRIMARY) HYPERTENSION (8) Smoker Current Visit: Yes Status: Chronic Assessment & Plan: - advised cessation - nicotine patch 01/16 - refused cessation and nicotine patch - refused referral to pulmonology for findings of pulmonary emphysema on CT Code(s): F17.200 - NICOTINE DEPENDENCE, UNSPECIFIED, UNCOMPLICATED (9) Hypothyroidism Current Visit: Yes Status: Chronic Assessment & Plan: - continue synthroid - TSH - 0.515 Code(s): E03.9 - HYPOTHYROIDISM, UNSPECIFIED - Discharge Discharge Date: 01/17/24 Disposition: Home, Self-Care Condition: Stable Prescriptions: Continue Alendronate Sodium 70 mg [Fosamax 70 MG] 70 mg PO WEEKLY Simvastatin 40 mg PO HS Nifedipine [Procardia Xl] 30 mg PO DAILY Levothyroxine Sodium 88 mcg PO DAILY Chlorthalidone 25 mg PO DAILY Aspirin EC 81 mg [Ecotrin 81 mg] 81 mg PO DAILY #0 Magnesium Glycinate 400 mg PO DAILY Cholecalciferol (Vitamin D3) [Vitamin D3] 25 mcg PO DAILY Potassium Chloride 99 mg PO DAILY Follow up with: DALE VASQUEZ [ACTIVE STAFF] - ZAN RENEE MD [Primary Care Provider] - 01/25/24 2:15 pm
[2024-01-17] MEDS ORDERED: NON-FORMULARY ITEM (Potassium Chloride [Potassium Chloride] 10 MEQ Tab.Er.Prt) PO SCH (10:00)
[2024-01-17] MEDS: Zithromax 250 MG TABLET PO ONE (10:02)
== END 2024-01-17 10:24 | disposition home or self-care (01) ==
LOC: ED 05:41 → MED SURG 10:15
PROVIDERS: ADMIT Internal Medicine; ATTEND Internal Medicine
DX: J44.1 Chronic obstructive pulmonary disease with (acute) exacerbation (principal); R79.89 Other specified abnormal findings of blood chemistry; E87.1 Hypo-osmolality and hyponatremia; N39.0 Urinary tract infection, site not specified; E66.9 Obesity, unspecified; Z68.33 Body mass index [BMI] 33.0-33.9, adult; I10 Essential (primary) hypertension; F17.200 Nicotine dependence, unspecified, uncomplicated; E03.9 Hypothyroidism, unspecified; E78.5 Hyperlipidemia, unspecified; Z79.899 Other long term (current) drug therapy; Z11.52 Encounter for screening for COVID-19
CPT/HCPCS: 0241U; 36000; 36415; 71260; 80053; 81001; 83605; 83735; 83880; 84443; 84484; 85025; 85027; 85379; 87040; 87086; 93005; 93041; 93268; 94640; 94760; 94762; 96365; 96367; 99285; G0378; Q3014; J0456; J0696; J1650; J2919; A9270-GY

== ENCOUNTER 2024-01-18 21:13 | Observation (INO) | payer MEDICARE ==
--- NOTE | 2024-01-18 21:58 | ERPHSYRPT ---
- History of Present Illness Time Seen by Provider: 01/18/24 21:34 Source: patient, family Exam Limitations: no limitations Patient Subjective Stated Complaint: C/O Fever that "started again tonight.". Patient states she was just discharged from the hospital yesterday with antibiotics for COPD exacerbation. Indicates that fever became higher after tylenol administration this evening. Triage Nursing Assessment: Patient ambulated back to ER without difficulties. Face is flushed. Skin is hot to touch. She is alert and oriented. SOB is noted with exertion but not at rest. T 102.6 Physician History: 78 years old female with history of COPD, tobacco abuse, chronic respiratory failure on 2 L oxygen as needed was recently admitted for COPD exacerbation and was discharged 2 days ago on antibiotics presented in the ER with fever for the last 3 hours with a Tmax of 103. Patient has taken 1000 mg Tylenol almost 2 hours ago and currently has a fever of 102. Patient reports coughing up a little more than before thick white sputum. Has shortness of breath at her baseline which is not much worse than usual. Having aches and pains all over. Denies any known sick contact. Denies any chest pain or palpitations. Allergies/Adverse Reactions: No Known Drug Allergies Allergy (Verified 01/18/24 21:40) Home Medications: Alendronate Sodium 70 mg [Fosamax 70 MG] 70 mg PO WEEKLY 02/09/22 [History] Chlorthalidone 25 mg PO DAILY 02/09/22 [History] Levothyroxine Sodium 88 mcg PO DAILY 02/09/22 [History] Nifedipine [Procardia Xl] 30 mg PO DAILY 02/09/22 [History] Simvastatin 40 mg PO HS 02/09/22 [History] Cholecalciferol (Vitamin D3) [Vitamin D3] 25 mcg PO DAILY 01/16/24 [History] Magnesium Glycinate 400 mg PO DAILY 01/16/24 [History] Potassium Chloride 99 mg PO DAILY 01/16/24 [History] Hx Tetanus, Diphtheria Vaccination/Date Given: Yes Hx Influenza Vaccination/Date Given: Yes Hx Pneumococcal Vaccination/Date Given: Yes Immunizations Up to Date: Yes Travel Risk - International Travel Have you traveled outside of the country in past 3 weeks: No - Emerging Infectious Disease Are you exhibiting symptoms associated with any current EIDs: Yes Symptoms: Cough: New Onset, Fever, Headaches/Body Aches/, Shortness of Breath - Review of Systems Constitutional: Fever, Chills, Fatigue, Weakness Eyes: No Symptoms, Foreign Body Sensation Respiratory: Cough, Dyspnea, Wheezing Cardiac: No Symptoms Abdominal/Gastrointestinal: No Symptoms Genitourinary Symptoms: No Symptoms Musculoskeletal: Myalgias Skin: No Symptoms Neurological: No Symptoms Psychological: No Symptoms Hematologic/Lymphatic: No Symptoms Immunological/Allergic: No Symptoms - Past Medical History Pertinent Past Medical History: Yes Neurological History: No Pertinent History ENT History: No Pertinent History Cardiac History: High Cholesterol, Hypertension Respiratory History: COPD Endocrine Medical History: Hypothyroidism Musculoskeletal History: Arthritis, Osteoporosis GI Medical History: Gallbladder Disease History: No Pertinent History Psycho-Social History: No Pertinent History Female Reproductive Disorders: No Pertinent History - Past Surgical History Past Surgical History: Yes Neuro Surgical History: No Pertinent History Cardiac: No Pertinent History Respiratory: No Pertinent History Gastrointestinal: Cholecystectomy Genitourinary: No Pertinent History Musculoskeletal: No Pertinent History Female Surgical History: No Pertinent History Other Surgical History: upper and lower scopes - Social History Smoking Status: Current every day smoker How long have you smoked: 60 YEARS Exposure to second hand smoke: Yes Drug Use: none Patient Lives Alone: No - Nursing Vital Signs Nursing Vital Signs: Initial Vital Signs Temperature 102.6 F 01/18/24 21:35 Pulse Rate 101 H 01/18/24 21:35 Respiratory Rate 22 01/18/24 21:35 Blood Pressure 167/69 01/18/24 21:35 O2 Sat by Pulse Oximetry 93 L 01/18/24 21:35 Pain Scale Pain Intensity 0 - Physical Exam General Appearance: no apparent distress, alert Eye Exam: PERRL/EOMI Ears, Nose, Throat Exam: hearing grossly normal, normal ENT inspection, normal pharynx Neck Exam: normal inspection, non-tender, supple, full range of motion Respiratory Exam: rhonchi, wheezing Cardiovascular/Chest Exam: normal heart sounds, regular rate/rhythm Abdominal/Gastrointestinal Exam: soft, normal bowel sounds, No tenderness Extremity Exam: non-tender, normal range of motion Neurologic Exam: alert, oriented x 3, cooperative, telecommunications engineer II-XII nml as tested Skin Exam: normal color SpO2 Interpretation: normal SpO2: 93 O2 Delivery: Room Air Ordered Tests: Active Orders 24 hr Category Date Time Status Silk Trimmer STAT Care 01/18/24 21:55 Active Oxygen-ED Only Nasal Cannula 2 lpm Care 01/18/24 21:55 Active CHEST 1 VIEW (PORTABLE) Stat Exams 01/18/24 21:55 Taken BLOOD CULTURE Stat Lab 01/18/24 22:10 Received CBC W DIFF Stat Lab 01/18/24 22:08 Completed CMP Stat Lab 01/18/24 22:08 Completed Lactic Acid Stat Lab 01/18/24 22:17 Completed MAGNESIUM Stat Lab 01/18/24 22:08 Completed NT PRO BNPII Stat Lab 01/18/24 22:08 Completed PROCALCITONIN Stat Lab 01/18/24 22:08 Completed Respiratory Nebulizer STAT RT 01/18/24 22:20 Completed Respiratory Therapy Assessment DAILY RT 01/18/24 22:21 Active Medication Summary Generic Name Dose Route Start Last Admin Trade Name Freq PRN Reason Stop Dose Admin Piperacillin Sod/Tazobactam 100 mls @ 200 mls/hr 01/18/24 23:09 Sod 3.375 gm/ Sodium Chloride IV 01/18/24 23:38 STAT ONE Magnesium Sulfate/Dextrose 100 mls @ 100 mls/hr 01/18/24 23:15 01/18/24 23:15 Magnesium 1 Gm / 100 Ml D5w IV 01/19/24 01:14 100 mls/hr Q1H BLUE Administration Discontinued Medications Generic Name Dose Route Start Last Admin Trade Name Freq PRN Reason Stop Dose Admin Albuterol/Ipratropium 3 ml 01/18/24 21:55 01/18/24 22:08 Ipratropium/Albuterol Sulfate 3 Ml Ampul.Neb IH 01/18/24 21:56 3 ml STAT ONE Administration Albuterol/Ipratropium Confirm 01/18/24 21:59 Ipratropium/Albuterol Sulfate 3 Ml Ampul.Neb Administered 01/18/24 22:00 Dose 3 ml IH .STK-MED ONE Ketorolac Tromethamine 15 mg 01/18/24 21:55 01/18/24 22:11 Ketorolac Tromethamine 30 Mg/Ml Inj IV 01/18/24 21:56 15 mg STAT ONE Administration Ketorolac Tromethamine Confirm 01/18/24 22:07 Ketorolac Tromethamine 30 Mg/Ml Inj Administered 01/18/24 22:08 Dose 30 mg .ROUTE .STK-MED ONE Lab/Rad Data: Laboratory Result Diagrams 01/18/24 22:08 01/18/24 22:08 Laboratory Results 01/18/24 01/18/24 01/18/24 Range/Units 22:17 22:08 22:08 WBC (4.0-10.5) x10^3/uL RBC (4.1-5.4) x10^6/uL Hgb (12.0-16.0) g/dL Hct (35-47) % MCV (78-100) fL MCH (26-32) pg MCHC (32-36) g/dL RDW (11.5-14.0) % Plt Count (150-450) x10^3/uL MPV (7.5-11.0) fL Gran % (36.0-66.0) % Immature Gran % (Auto) (0.00-0.4) % Nucleat RBC Rel Count (0.00-0.1) % Eos # (Auto) (0-0.5) x10^3/uL Immature Gran # (Auto) (0.00-0.03) x10^3u/L Absolute Lymphs (auto) (1.0-4.6) x10^3/uL Absolute Monos (auto) (0.0-1.3) x10^3/uL Absolute Nucleated RBC (0.00-0.01) x10^3u/L Lymphocytes % (24.0-44.0) % Monocytes % (0.0-12.0) % Eosinophils % (0.00-5.0) % Basophils % (0.0-0.4) % Absolute Granulocytes (1.4-6.9) x10^3/uL Basophils # (0-0.4) x10^3/uL Sodium (135-145) mmol/L Potassium (3.5-5.1) mmol/L Chloride (98-107) mmol/L Carbon Dioxide (22-30) mmol/L Anion Gap (5-15) MEQ/L BUN (7-17) mg/dL Creatinine (0.52-1.04) mg/dL Estimated GFR ML/MIN Glucose (74-106) mg/dL Lactic Acid 2.0 (0.4-2.0) Calcium (8.4-10.2) mg/dL Magnesium (1.6-2.3) mg/dL Total Bilirubin (0.2-1.3) mg/dL AST (14-36) U/L ALT (0-35) U/L Alkaline Phosphatase (38-126) U/L NT-Pro-B Natriuret Pep (<300) pg/mL Serum Total Protein (6.3-8.2) g/dL Albumin (3.5-5.0) g/dL Procalcitonin 0.675 H (0.030-0.080) ng/mL Influenza Type A Ag NEGATIVE (NEGATIVE) Influenza Type B Ag NEGATIVE (NEGATIVE) RSV (PCR) NEGATIVE (NEGATIVE) SARS-CoV-2 (PCR) NEGATIVE (NEGATIVE) 01/18/24 01/18/24 01/18/24 Range/Units 22:08 22:08 22:08 WBC 12.8 H (4.0-10.5) x10^3/uL RBC 4.99 (4.1-5.4) x10^6/uL Hgb 14.0 (12.0-16.0) g/dL Hct 43.0 (35-47) % MCV 86.2 (78-100) fL MCH 28.1 (26-32) pg MCHC 32.6 (32-36) g/dL RDW 21.8 H (11.5-14.0) % Plt Count 341 (150-450) x10^3/uL MPV 11.2 H (7.5-11.0) fL Gran % 89.7 H (36.0-66.0) % Immature Gran % (Auto) 1.6 H (0.00-0.4) % Nucleat RBC Rel Count 0.0 (0.00-0.1) % Eos # (Auto) 0.02 (0-0.5) x10^3/uL Immature Gran # (Auto) 0.20 H (0.00-0.03) x10^3u/L Absolute Lymphs (auto) 0.37 L (1.0-4.6) x10^3/uL Absolute Monos (auto) 0.69 (0.0-1.3) x10^3/uL Absolute Nucleated RBC 0.00 (0.00-0.01) x10^3u/L Lymphocytes % 2.9 L (24.0-44.0) % Monocytes % 5.4 (0.0-12.0) % Eosinophils % 0.2 (0.00-5.0) % Basophils % 0.2 (0.0-0.4) % Absolute Granulocytes 11.48 H (1.4-6.9) x10^3/uL Basophils # 0.03 (0-0.4) x10^3/uL Sodium 136 (135-145) mmol/L Potassium 3.7 (3.5-5.1) mmol/L Chloride 103 (98-107) mmol/L Carbon Dioxide 24 (22-30) mmol/L Anion Gap 12.0 (5-15) MEQ/L BUN 24 H (7-17) mg/dL Creatinine 0.82 (0.52-1.04) mg/dL Estimated GFR 73.2 ML/MIN Glucose 118 H (74-106) mg/dL Lactic Acid (0.4-2.0) Calcium 9.2 (8.4-10.2) mg/dL Magnesium 1.4 L (1.6-2.3) mg/dL Total Bilirubin 0.70 (0.2-1.3) mg/dL AST 44 H (14-36) U/L ALT 31 (0-35) U/L Alkaline Phosphatase 74 (38-126) U/L NT-Pro-B Natriuret Pep 846 (<300) pg/mL Serum Total Protein 6.6 (6.3-8.2) g/dL Albumin 3.5 (3.5-5.0) g/dL Procalcitonin (0.030-0.080) ng/mL Influenza Type A Ag (NEGATIVE) Influenza Type B Ag (NEGATIVE) RSV (PCR) (NEGATIVE) SARS-CoV-2 (PCR) (NEGATIVE) - Progress Progress: improved Air Movement: fair Progress Note: 01/18/24 23:27 78 years old is evaluated for worsening cough and fever despite being on Levaquin from recent discharge. Patient is satting around 90% on room air, placed on 2 L oxygen, given DuoNeb, feeling better on reevaluation. She is also given Toradol for fever as patient has already taken 1000 mg of Tylenol. Workup showed white count of 12, lactate of 2.0 and Pro-Ross 0.6. Chest x-ray showed right-sided pneumonia reviewed by me, official report is pending. Patient is given a dose of Zosyn as patient has already taken Rocephin and Zithromax and Levaquin. I believe patient would benefit with readmission frequent nebs. Discussed with Dr. Lees patient is being admitted. I have shared the results of workup with patient and family and plan of admission which they understand and agree. Blood Culture(s) Obtained: Yes Antibiotics given: Yes Discussed with Dr.: Other (Dr. Anders) Will see patient in: hospital (observation) Counseled pt/family regarding: lab results, diagnosis, rad results, smoking cessation Medical Desision Making - Independent Historian Additional History obtained from: Child - Discussion of managment Care discussed with:: hospitalist (Dr. Anders [phone]) Reviewed:: Test results Agreed on:: Treatment plan Will see patient: in hospital - Diagnostic Testing Diagnostic test were ordered, analyzed, and reviewed by me: Yes Radiological Interpretation: Interpreted by me, Reviewed by me - Risk of complications The pt has a high risk of morbidity or mortality based on: Decision regarding hospitilization or escalation of hosp level of care - Departure Departure Disposition: Observation Clinical Impression: Pneumonia, Acute exacerbation of chronic obstructive airways disease Condition: Stable Critical Care Time: No Referrals: ZAN RENEE MD [Primary Care Provider] - Follow up/PCP as directed Instructions: Chronic Obstructive Pulmonary Disease
[2024-01-18] MEDS ORDERED: DUONEB 0.5-3 MG/3 ml Neb IH ONE (21:59)
[2024-01-18] MEDS ORDERED: TORAdol 30 mg Injection ONE (22:07)
[2024-01-18] MEDS: DUONEB 0.5-3 MG/3 ml Neb IH ONE (22:08)
[2024-01-18] MEDS: TORAdol 30 mg Injection IV ONE (22:11)
[2024-01-18 22:19] LABS: Absolute Neutrophil Ct (ANC) 11.48 x10^3/uL (1.4-6.9); BASOPHIL % 0.2 % (0.0-0.4); Basophil (Absolute #) 0.03 x10^3/uL (0-0.4); Eosinophil % 0.2 % (0.00-5.0); Eosinophil (Absolute #) 0.02 x10^3/uL (0-0.5); IMMATURE GRAN % 1.6 % (0.00-0.4); Lymphocyte (Absolute #) 0.37 x10^3/uL (1.0-4.6); Lymphocytes % 2.9 % (24.0-44.0); Mean Cell Volume 86.2 fL (78-100); Mean Corpuscular Hemoglobin 28.1 pg (26-32); Mean Corpuscular Hgb Concent. 32.6 g/dL (32-36); Mean Platelet Volume 11.2 fL (7.5-11.0); Monocyte (Absolute #) 0.69 x10^3/uL (0.0-1.3); Monocytes % 5.4 % (0.0-12.0); Neutrophil % 89.7 % (36.0-66.0); Platelet Count 341 x10^3/uL (150-450); Red Blood Count 4.99 x10^6/uL (4.1-5.4); Red Cell Distribution Width 21.8 % (11.5-14.0); White Blood Count 12.8 x10^3/uL (4.0-10.5)
[2024-01-18 22:33] LABS: ALBUMIN 3.5 g/dL (3.5-5.0); BILIRUBIN,TOTAL 0.7 mg/dL (0.2-1.3); Calcium 9.2 mg/dL (8.4-10.2); Creatinine 1 0.82 mg/dL (0.52-1.04); EST GLOMERULAR FILTRATION RATE 73.2 ML/MIN; MAGNESIUM 1.4 mg/dL (1.6-2.3); Potassium 3.7 mmol/L (3.5-5.1); Total Protein 6.6 g/dL (6.3-8.2)
[2024-01-18 22:55] LABS: INFLUENZA A NEGATIVE (NEGATIVE); INFLUENZA B NEGATIVE (NEGATIVE); RESPIRATORY SYNCTIAL VIRUS NEGATIVE (NEGATIVE); SARS-CoV-2 Xpert Express NEGATIVE (NEGATIVE)
[2024-01-18] MEDS: Magnesium 1 Gm / 100 Ml D5W*** 100 ML IV SCH (23:15)
[2024-01-18] MEDS ORDERED: PIPERACILLIN/TAZOBACTAM IV ONE (23:56)
[2024-01-18] MEDS ORDERED: Sodium Chloride 100ML MINI-BAG PLUS 100 ML IV ONE (23:56)
[2024-01-19 00:02] LABS: Slide Review 1 YES
[2024-01-19] MEDS: PIPERACILLIN/TAZOBACTAM 3.375 GM in Sodium Chloride 100ML MINI-BAG PLUS 100 ML IV ONE (00:19)
--- NOTE | 2024-01-19 01:19 | PCM.HP ---
History of Present Illness - Chief Complaint Chief Complaint: pneumonia, acute COPD exacerbation Date: 01/19/24 History of Present Illness: Ms. Moore is a 78 year-old female with HTN, HLD, COPD, chronic hyopxemic respiratory failure on 2L NC at home, and hypothyroidism who presents with continued shortness of breath and fevers. She was admitted 01/15-01/16 for a COPD exacerbation, at which time she had clear chest imaging thus prompting discharge with oral steroids and oral levaquin to be completed as an outpatient. She was afebrile when she was discharged but now returns with recurrent fevers, persistent cough, and persistent shortness of breath. Upon arrival to [place], her laboratory data was remarkable for hypomagnesemia while chest XR revealed increased haziness in the bases. On my examination, she is comfortable on 2L oxygen denying any current fevers, chills, nausea, vomiting, diarrhea, syncope, presyncope, visual changes, orthopnea, PND, odynophagia, dysphagia, chest pain, belly pain, dysuria, hematuria, melena, hematochezia, or neurological changes. All other systems were reviewed and were negative. - Review of Systems Constitutional: Other ( PER HPI) Medications & Allergies Home Medications: Home Medication List Alendronate Sodium 70 mg [Fosamax 70 MG] 70 mg PO WEEKLY 02/09/22 [History Confirmed 01/18/24] Chlorthalidone 25 mg PO DAILY 02/09/22 [History Confirmed 01/18/24] Levothyroxine Sodium 88 mcg PO DAILY 02/09/22 [History Confirmed 01/18/24] Nifedipine [Procardia Xl] 30 mg PO DAILY 02/09/22 [History Confirmed 01/18/24] Simvastatin 40 mg PO HS 02/09/22 [History Confirmed 01/18/24] Aspirin EC 81 mg [Ecotrin 81 mg] 81 mg PO DAILY #0 02/07/23 [Rx Confirmed 01/18/24] Cholecalciferol (Vitamin D3) [Vitamin D3] 25 mcg PO DAILY 01/16/24 [History Confirmed 01/18/24] Magnesium Glycinate 400 mg PO DAILY 01/16/24 [History Confirmed 01/18/24] Potassium Chloride 99 mg PO DAILY 01/16/24 [History Confirmed 01/18/24] Levofloxacin [Levofloxacin 500 MG Tablet] 500 mg PO DAILY 7 Days #7 tablet 01/17/24 [Rx Confirmed 01/18/24] Prednisone 20 mg [Deltasone 20 mg] 20 mg PO BID 5 Days #10 tablet 01/17/24 [Rx Confirmed 01/18/24] Allergies/Adverse Reactions: Allergies Allergy/AdvReac Type Severity Reaction Status Date / Time No Known Drug Allergies Allergy Verified 01/18/24 21:40 - Past Medical History Past Medical History: Yes Neurological History: No Pertinent History ENT History: No Pertinent History Cardiac History: High Cholesterol, Hypertension Respiratory History: COPD Endocrine Medical History: Hypothyroidism Musculoskelatal History: Arthritis, Osteoporosis GI Medical History: Gallbladder Disease History: No Pertinent History Pyscho-Social History: No Pertinent History Reproductive Disorders: No Pertinent History - Past Surgical History Past Surgical History: Yes Neuro Surgical History: No Pertinent History Cardiac History: No Pertinent History Respiratory Surgery: No Pertinent History GI Surgical History: Cholecystectomy Genitourinary Surgical Hx: No Pertinent History Musculskeletal Surgical Hx: No Pertinent History Female Surgical History: No Pertinent History Other Surgical History: upper and lower scopes Significant Family History: no pertinent family hx - Social History Smoking Status: Current every day smoker How long have you smoked: 60 YEARS Exposure to second hand smoke: Yes Alcohol: None Drug Use: none - Social Determinants of Health Will the patient participate in the screening: Yes Do you worry about a steady place to live?: No Do you have any problems with any of the following?: No known problems In the past 12 months,have you had to go without utilities?: No Have you or anyone in your house had to go without enough: No Transportation Issues: No Has anyone in your support network made you feel unsafe?: No Does the patient want assistance with any of the above?: No - Physical Exam Vital Signs: Vital Signs - 24 hr Temp Pulse Resp BP BP Pulse Ox 01/19/24 00:43 98.0 F 94 H 17 135/60 94 L 01/19/24 00:00 79 17 144/56 93 L 01/18/24 23:59 94 L 01/18/24 23:36 96.9 F 01/18/24 23:32 93 L 01/18/24 23:30 79 21 127/48 92 L 01/18/24 23:04 84 26 H 126/65 92 L 01/18/24 23:03 85 18 93 L 01/18/24 23:00 86 23 92 L 01/18/24 22:50 89 24 89 L 01/18/24 22:40 91 H 17 91 L 01/18/24 22:30 90 18 90 L 01/18/24 22:20 93 H 21 90 L 01/18/24 22:10 89 20 96 01/18/24 21:36 90 15 167/69 94 L 01/18/24 21:35 102.6 F 101 H 22 167/69 93 L General Appearance: no apparent distress, alert Neurologic Exam: alert, oriented x 3, cooperative, normal mood/affect, nml cerebellar function, nml station & gait, sensation nml, No motor deficits Eye Exam: PERRL/EOMI, eyes nml inspection Ears, Nose, Throat Exam: normal ENT inspection, TMs normal, pharynx normal, moist mucous membranes Neck Exam: normal inspection, non-tender, supple, full range of motion Respiratory Exam: normal breath sounds, lungs clear, No respiratory distress Cardiovascular Exam: regular rate/rhythm, normal heart sounds, normal peripheral pulses Gastrointestinal/Abdomen Exam: soft, normal bowel sounds, No tenderness, No mass Back Exam: normal inspection, normal range of motion, No CVA tenderness, No vertebral tenderness Extremity Exam: normal inspection, normal range of motion, pelvis stable Skin Exam: normal color, warm, dry, No rash Lymphatic Exam: No adenopathy Results - Labs Lab/Micro Results: Lab Results-Last 24 Hours 01/18/24 01/18/24 01/18/24 Range/Units 22:08 22:08 22:08 WBC 12.8 H (4.0-10.5) x10^3/uL RBC 4.99 (4.1-5.4) x10^6/uL Hgb 14.0 (12.0-16.0) g/dL Hct 43.0 (35-47) % MCV 86.2 (78-100) fL MCH 28.1 (26-32) pg MCHC 32.6 (32-36) g/dL RDW 21.8 H (11.5-14.0) % Plt Count 341 (150-450) x10^3/uL MPV 11.2 H (7.5-11.0) fL Gran % 89.7 H (36.0-66.0) % Immature Gran % (Auto) 1.6 H (0.00-0.4) % Nucleat RBC Rel Count 0.0 (0.00-0.1) % Eos # (Auto) 0.02 (0-0.5) x10^3/uL Immature Gran # (Auto) 0.20 H (0.00-0.03) x10^3u/L Absolute Lymphs (auto) 0.37 L (1.0-4.6) x10^3/uL Absolute Monos (auto) 0.69 (0.0-1.3) x10^3/uL Absolute Nucleated RBC 0.00 (0.00-0.01) x10^3u/L Lymphocytes % 2.9 L (24.0-44.0) % Monocytes % 5.4 (0.0-12.0) % Eosinophils % 0.2 (0.00-5.0) % Basophils % 0.2 (0.0-0.4) % Absolute Granulocytes 11.48 H (1.4-6.9) x10^3/uL Basophils # 0.03 (0-0.4) x10^3/uL Sodium 136 (135-145) mmol/L Potassium 3.7 (3.5-5.1) mmol/L Chloride 103 (98-107) mmol/L Carbon Dioxide 24 (22-30) mmol/L Anion Gap 12.0 (5-15) MEQ/L BUN 24 H (7-17) mg/dL Creatinine 0.82 (0.52-1.04) mg/dL Estimated GFR 73.2 ML/MIN Glucose 118 H (74-106) mg/dL Lactic Acid (0.4-2.0) Calcium 9.2 (8.4-10.2) mg/dL Magnesium 1.4 L (1.6-2.3) mg/dL Total Bilirubin 0.70 (0.2-1.3) mg/dL AST 44 H (14-36) U/L ALT 31 (0-35) U/L Alkaline Phosphatase 74 (38-126) U/L NT-Pro-B Natriuret Pep 846 (<300) pg/mL Serum Total Protein 6.6 (6.3-8.2) g/dL Albumin 3.5 (3.5-5.0) g/dL Procalcitonin (0.030-0.080) ng/mL Influenza Type A Ag (NEGATIVE) Influenza Type B Ag (NEGATIVE) RSV (PCR) (NEGATIVE) SARS-CoV-2 (PCR) (NEGATIVE) Slides for Path Review YES 01/18/24 01/18/24 01/18/24 Range/Units 22:08 22:08 22:17 WBC (4.0-10.5) x10^3/uL RBC (4.1-5.4) x10^6/uL Hgb (12.0-16.0) g/dL Hct (35-47) % MCV (78-100) fL MCH (26-32) pg MCHC (32-36) g/dL RDW (11.5-14.0) % Plt Count (150-450) x10^3/uL MPV (7.5-11.0) fL Gran % (36.0-66.0) % Immature Gran % (Auto) (0.00-0.4) % Nucleat RBC Rel Count (0.00-0.1) % Eos # (Auto) (0-0.5) x10^3/uL Immature Gran # (Auto) (0.00-0.03) x10^3u/L Absolute Lymphs (auto) (1.0-4.6) x10^3/uL Absolute Monos (auto) (0.0-1.3) x10^3/uL Absolute Nucleated RBC (0.00-0.01) x10^3u/L Lymphocytes % (24.0-44.0) % Monocytes % (0.0-12.0) % Eosinophils % (0.00-5.0) % Basophils % (0.0-0.4) % Absolute Granulocytes (1.4-6.9) x10^3/uL Basophils # (0-0.4) x10^3/uL Sodium (135-145) mmol/L Potassium (3.5-5.1) mmol/L Chloride (98-107) mmol/L Carbon Dioxide (22-30) mmol/L Anion Gap (5-15) MEQ/L BUN (7-17) mg/dL Creatinine (0.52-1.04) mg/dL Estimated GFR ML/MIN Glucose (74-106) mg/dL Lactic Acid 2.0 (0.4-2.0) Calcium (8.4-10.2) mg/dL Magnesium (1.6-2.3) mg/dL Total Bilirubin (0.2-1.3) mg/dL AST (14-36) U/L ALT (0-35) U/L Alkaline Phosphatase (38-126) U/L NT-Pro-B Natriuret Pep (<300) pg/mL Serum Total Protein (6.3-8.2) g/dL Albumin (3.5-5.0) g/dL Procalcitonin 0.675 H (0.030-0.080) ng/mL Influenza Type A Ag NEGATIVE (NEGATIVE) Influenza Type B Ag NEGATIVE (NEGATIVE) RSV (PCR) NEGATIVE (NEGATIVE) SARS-CoV-2 (PCR) NEGATIVE (NEGATIVE) Slides for Path Review - Radiology Impressions Radiology Exams & Impressions: Radiology Procedures Category Date Time Status CHEST 1 VIEW (PORTABLE) Stat Exams 01/18/24 21:55 Taken CHEST WITHOUT CONTRAST [CT] Urgent Exams 01/19/24 01:06 Ordered - Other Procedures and Tests Respiratory Therapy 01/18/24 22:21 Respiratory Therapy Assessment DAILY 01/18/24 23:59 Oxygen Nasal Cannula 2 lpm Assessment/Plan (1) Pneumonia Current Visit: Yes Status: Acute Assessment & Plan: ANTIBIOTICS AND STEROIDS Azithromycin Vancomycin Zosyn ASSESSMENT 1. Pneumonia 2. Hypomagnesemia 3. Acute COPD Exacerbation 4. Hypertension 5. Hyperlipidemia 6. Hypothyroidism 7. Chronic Hypoxemic Respiratory Failure PLAN 1. Broad Abx to cover HCAP - she was in the hospital for <24 hours, but imaging on 01/17 is 48 hours after initial imaging from 01/[address] chest to confirm airspace disease 3. MRSA nares ordered 4. IV steroids + duonebs - will need 2 week steroid taper 5. Replete Mg 6. Continue home antihypertensives and synthroid Lovenox The entirety of this encounter was done via telemedicine with audio and visual. Consent was obtained for telemedicine. Nilson Anders MD Pulmonary and Critical Care Medicine Code(s): J18.9 - PNEUMONIA, UNSPECIFIED ORGANISM Telemedicine Encounter - Telemedicine Encounter Telemedicine Encounter: The entirety of this encounter was performed via Telemedicine"
[2024-01-19] MEDS ORDERED: VANCOMYCIN 1 GRAM/200 ML BAG 1 GM/200 ML PIGGYBACK IV ONE (01:55)
[2024-01-19] MEDS: VANCOMYCIN 1 GRAM/200 ML BAG 1 GM/200 ML PIGGYBACK IV SCH (01:57)
[2024-01-19] MEDS: DUONEB 0.5-3 MG/3 ml Neb IH SCH (03:19)
--- NOTE | 2024-01-19 05:01 | XRAY ---
CLINICAL HISTORY: pna COMPARISON: 01/16/2024. TECHNIQUE: CT axial continuous cuts were taken through the chest with multiplanar reformatting and without contrast administration. FINDINGS: Bilateral upper lung lobes centrilobular and paraseptal emphysematous changes. Bilateral lower lung lobes subpleural atelectasis more at the right lower lung lobe with mild basal pleural thickening/reaction (almost unchanged). No evidence of nodules or masses. Multiple calcified mediastinal and right hilar lymph nodes (sequelae of old granulomas). No pathologically enlarged axillary lymph node was identified. Mild cardiomegaly with minimal pericardial thickening/effusion (unchanged). No free or encysted pleural effusion. Bone window settings showed no evidence of destructive bony lesions. Thoracic spondylotic changes with T7/8 posterior disc protrusion. Scanned upper abdominal cuts showing: a left adrenal gland hypodense lesion measuring about 3.5 x 3.6 cm with intralesional fat CT density, most probably adenoma, hepatosplenomegaly with small parenchymal calcifications likely old granulomas. IMPRESSION: 1. No significant interval changes. 2. Bilateral upper lung lobes centrilobular and paraseptal emphysematous changes. 3. Bilateral lower lung lobes subpleural atelectasis more at the right lower lung lobe with mild basal pleural thickening/reaction (almost unchanged). 4. Mild cardiomegaly with minimal pericardial thickening/effusion (unchanged). 5. Left adrenal gland hypodense lesion measuring about 3.5 x 3.6 cm with intralesional fat CT density, most probably adenoma. 6. Hepatosplenomegaly with small parenchymal calcifications likely old granulomas. Electronically Signed by: Toby Kamara MD. (01/19/2024 04:57:54 EDT)
[2024-01-19] MEDS ORDERED: PIPERACILLIN/TAZOBACTAM IV ONE (05:11)
[2024-01-19] MEDS ORDERED: Sodium Chloride 100ML MINI-BAG PLUS 100 ML IV ONE (05:11)
[2024-01-19 05:44] LABS: Absolute Neutrophil Ct (ANC) 8.12 x10^3/uL (1.4-6.9); BASOPHIL % 0.3 % (0.0-0.4); Basophil (Absolute #) 0.03 x10^3/uL (0-0.4); Eosinophil % 0.3 % (0.00-5.0); Eosinophil (Absolute #) 0.03 x10^3/uL (0-0.5); Hematocrit 44.1 % (35-47); Hemoglobin 13.7 g/dL (12.0-16.0); IMMATURE GRAN # 0.17 x10^3u/L (0.00-0.03); IMMATURE GRAN % 1.8 % (0.00-0.4); Lymphocyte (Absolute #) 0.58 x10^3/uL (1.0-4.6); Lymphocytes % 6.1 % (24.0-44.0); Mean Cell Volume 87.8 fL (78-100); Mean Corpuscular Hemoglobin 27.3 pg (26-32); Mean Corpuscular Hgb Concent. 31.1 g/dL (32-36); Mean Platelet Volume 11.8 fL (7.5-11.0); Monocyte (Absolute #) 0.61 x10^3/uL (0.0-1.3); Monocytes % 6.4 % (0.0-12.0); Neutrophil % 85.1 % (36.0-66.0); Platelet Count 301 x10^3/uL (150-450); Red Blood Count 5.02 x10^6/uL (4.1-5.4); Red Cell Distribution Width 22.1 % (11.5-14.0); White Blood Count 9.5 x10^3/uL (4.0-10.5)
[2024-01-19 05:59] LABS: ALBUMIN 3.2 g/dL (3.5-5.0); ANION GAP 10.5 MEQ/L (5-15); BILIRUBIN,TOTAL 0.7 mg/dL (0.2-1.3); Calcium 8.9 mg/dL (8.4-10.2); Creatinine 1 0.96 mg/dL (0.52-1.04); EST GLOMERULAR FILTRATION RATE 60.6 ML/MIN; MAGNESIUM 2.1 mg/dL (1.6-2.3); Potassium 3.5 mmol/L (3.5-5.1); Total Protein 6.4 g/dL (6.3-8.2)
[2024-01-19] MEDS ORDERED: solu-MEDROL ONE (06:00)
[2024-01-19] MEDS ORDERED: Sterile H2O 10 ml IJ ONE (06:00)
[2024-01-19] MEDS: PIPERACILLIN/TAZOBACTAM 3.375 GM in Sodium Chloride 100ML MINI-BAG PLUS 100 ML IV SCH (06:09)
[2024-01-19] MEDS: solu-MEDROL 40 MG, Sterile H2O 10 ml 2 ML IV SCH (06:11)
--- NOTE | 2024-01-19 07:39 | XRAY ---
Indication: Fever and cough. Comparison: September 14, 2023 Portable chest inflated and clear. Heart not enlarged again with incidental small mediastinal calcified nodes. Bony thorax intact again with osteopenia. Impression: Nonacute chest with chronic features.
[2024-01-19 08:34] LABS: Slide Review 1 YES
[2024-01-19] MEDS ORDERED: LEVOTHYROXINE SODIUM 88 MCG PO SCH (10:00)
[2024-01-19] MEDS: Nicoderm CQ 21 MG TOP SCH (10:15)
[2024-01-19] MEDS: ECOTRIN 81 MG PO SCH (10:15)
[2024-01-19] MEDS: Adalat CC 30 MG TABLET PO SCH (10:15)
[2024-01-19] MEDS: ENOXAPARIN SODIUM SQ SCH (10:15)
[2024-01-19] MEDS: MAGNESIUM GLYCINATE 100 MG PO SCH (10:16)
[2024-01-19] MEDS: CHLORTHALIDONE PO SCH (10:34)
[2024-01-19] MEDS: SYNTHROID 88 MCG PO SCH (10:34)
[2024-01-19] MEDS: MAG-OX 400 PO SCH (11:30)
[2024-01-19] MEDS: Zithromax 500 MG/ 250 ML NaCl Premix 500 MG/250 ML IVPB IV SCH (12:20)
[2024-01-19] MEDS ORDERED: NON-FORMULARY ITEM (Simvastatin [Simvastatin] 40 MG Tablet) PO SCH (22:00)
[2024-01-19] MEDS: ZOCOR 20MG PO SCH (22:28)
[2024-01-19] MEDS: CEFTIN 500 MG PO SCH (22:28)
[2024-01-20 07:28] VITALS: RESP 16
[2024-01-20] MEDS: Zithromax 250 MG TABLET PO SCH (09:21)
[2024-01-20] MEDS: DELTASONE 20 MG PO SCH (09:22)
--- NOTE | 2024-01-20 10:30 | PCM.DS ---
Discharge Summary Date of Admission: 01/18/24 23:55 Date of Discharge: 01/20/24 Admitting Physician: ALICIA NIEVES MD Primary Care Provider: ZAN RENEE Allergies Allergies No Known Drug Allergies Allergy (Verified 01/18/24 21:40) Hospital Summary - Hospital Course Hospital Course: Ms. Moore is a 78 year-old female with HTN, HLD, COPD, chronic hyopxemic respiratory failure on 2L NC at home at night, and hypothyroidism. She presented fevers on 01/19/24. She rpeorts she was not SOB. She was recently admitted 01/15-01/16 for a COPD exacerbation, at which time she had clear chest imaging thus prompting discharge with oral steroids and oral levaquin to be completed as an outpatient. She was afebrile when she was discharged but now returns with recurrent fevers which made her nervous. Upon arrival to [place], her laboratory data was remarkable for hypomagnesemia while chest XR revealed increased haziness in the bases. Today lung sounds are clear, she is RA94%. She is willing to consider smoking cessation. Will d/c with current PO antibiotics regimen. She would like to d/c today. She denies CP, SOB, abd. pain, N/V/D. - Vitals & Intake/Output Vital Signs: Vital Signs Temperature 97.8 F 01/20/24 07:42 Pulse Rate 73 01/20/24 07:42 Respiratory Rate 16 01/20/24 07:42 Blood Pressure 145/65 01/20/24 07:42 O2 Sat by Pulse Oximetry 95 01/20/24 07:42 Intake & Output: Intake & Output 01/17/24 01/18/24 01/19/24 01/20/24 11:59 11:59 11:59 11:59 Intake Total 1003 2160 Balance 1003 2160 Weight 91.5 kg - Lab Result Diagrams: 01/19/24 05:25 01/19/24 05:25 Lab Results-Last 24 Hrs: Lab Results-Last 24 Hours 01/20/24 Range/Units 07:26 POC Glucometer 93 (74 to 106) mg/dL Micro Results-Entire Visit: Microbiology 01/18/24 22:10 Blood Culture - Preliminary Blood 01/18/24 22:08 Blood Culture - Preliminary Blood - Radiology Exams Ordered Rad Exams-Entire Visit: Radiology Procedures Category Date Time Status CHEST 1 VIEW (PORTABLE) Stat Exams 01/18/24 21:55 Completed CHEST WITHOUT CONTRAST [CT] Urgent Exams 01/19/24 01:06 Completed - Procedures and Test Procedures and Tests throughout Hospitalization: Therapy Orders & Screens 01/18/24 22:20 Respiratory Nebulizer STAT Comment: 01/18/24 22:21 Respiratory Therapy Assessment DAILY Comment: 01/18/24 23:59 Oxygen Nasal Cannula 2 lpm Comment: Respiratory Therapy Consult ONCE Comment: Reason For Exam: Discharge Exam General Appearance: no apparent distress, alert Neurologic Exam: alert, oriented x 3, cooperative, normal mood/affect, nml cerebellar function, sensation nml, No motor deficits Eye Exam: PERRL, EOMI, eyes nml inspection Ears, Nose, Throat Exam: normal ENT inspection, pharynx normal, moist mucous membranes Neck Exam: normal inspection, non-tender, supple, full range of motion Respiratory Exam: normal breath sounds, lungs clear, No respiratory distress Cardiovascular Exam: regular rate/rhythm, normal heart sounds Gastrointestinal/Abdomen Exam: soft, No tenderness, No mass Pelvic Exam: deferred Rectal Exam: deferred Back Exam: normal inspection, normal range of motion, No CVA tenderness, No vertebral tenderness Extremity Exam: normal inspection, normal range of motion Skin Exam: normal color, warm, dry Final Diagnosis/Problem List - Final Discharge Diagnosis/Problem (1) COPD exacerbation Current Visit: Yes Status: Acute Assessment & Plan: - advised smoking cessation- she will consider - She declined Pulm f/u OP and wants to discuss with PCP - RA 94% - Continue PRN O2- 2LNC at night - was on Levaquin at previous d/c- changed to cefuroximine and zithromax - Continue steriods OP - - CT chest IMPRESSION: 1. No significant interval changes. 2. Bilateral upper lung lobes centrilobular and paraseptal emphysematous changes. 3. Bilateral lower lung lobes subpleural atelectasis more at the right lower lung lobe with mild basal pleural thickening/reaction (almost unchanged). 4. Mild cardiomegaly with minimal pericardial thickening/effusion (unchanged). 5. Left adrenal gland hypodense lesion measuring about 3.5 x 3.6 cm with intralesional fat CT density, most probably adenoma. 6. Hepatosplenomegaly with small parenchymal calcifications likely old granulomas. Code(s): J44.1 - CHRONIC OBSTRUCTIVE PULMONARY DISEASE W (ACUTE) EXACERBATION (2) Fever Current Visit: Yes Status: Acute Assessment & Plan: - resolved since admission - take tylenol for fever - likely viral Code(s): R50.9 - FEVER, UNSPECIFIED - Discharge Discharge Date: 01/20/24 Disposition: Home, Self-Care Condition: Stable Prescriptions: New Cefuroxime Axetil 500 mg [Ceftin 500 mg] 500 mg PO BID 5 Days #10 tablet Prednisone 20 mg [Deltasone 20 mg] 20 mg PO BID 5 Days #10 tablet Azithromycin 250 mg [Zithromax 250 MG TABLET] 500 mg PO DAILY 3 Days #6 tablet Continue Alendronate Sodium 70 mg [Fosamax 70 MG] 70 mg PO WEEKLY Simvastatin 40 mg PO HS Nifedipine [Procardia Xl] 30 mg PO DAILY Levothyroxine Sodium 88 mcg PO DAILY Chlorthalidone 25 mg PO DAILY Aspirin EC 81 mg [Ecotrin 81 mg] 81 mg PO DAILY #0 Magnesium Glycinate 400 mg PO DAILY Cholecalciferol (Vitamin D3) [Vitamin D3] 25 mcg PO DAILY Potassium Chloride 99 mg PO DAILY Prednisone 20 mg [Deltasone 20 mg] 20 mg PO BID 5 Days #10 tablet Discontinued Levofloxacin [Levofloxacin 500 MG Tablet] 500 mg PO DAILY 7 Days #7 tablet Instructions: Azithromycin (Systemic), Fever, Adult (DC) Follow up with: ZAN RENEE MD [Primary Care Provider] -
[2024-01-20 11:20] VITALS: BP 135/60; TEMP 97.6; O2SAT 94
[2024-01-20 11:27] VITALS: PULSE 81
== END 2024-01-20 12:30 | disposition home or self-care (01) ==
LOC: ED 21:13 → MED SURG 23:55
PROVIDERS: ADMIT Internal Medicine Critical Care Medicine; ATTEND Internal Medicine Critical Care Medicine
DX: J44.1 Chronic obstructive pulmonary disease with (acute) exacerbation (principal); R50.9 Fever, unspecified; I10 Essential (primary) hypertension; E78.5 Hyperlipidemia, unspecified; J96.10 Chronic respiratory failure, unspecified whether with hypoxia or hypercapnia; E03.9 Hypothyroidism, unspecified; E83.42 Hypomagnesemia; F17.200 Nicotine dependence, unspecified, uncomplicated; Z79.899 Other long term (current) drug therapy; Z11.52 Encounter for screening for COVID-19
CPT/HCPCS: 0241U; 36000; 36415; 71045; 71250; 80053; 82947; 83605; 83735; 83880; 84145; 85025; 87040; 87641; 93041; 94640; 94760; 94761; 96374; 99285; G0378; Q3014; J1650; J1885; J2919; J3475; A9270-GY; J3370